=== PATIENT | male | born 1940 | race Caucasian/White ===

== ENCOUNTER 2022-05-10 19:16 | Emergency (ER) | payer MEDICARE, OTHER, SELFPAY ==
[2022-05-10] VITALS (15 sets, daily range): BP systolic 117–133; BP diastolic 56–69; PULSE 53–65; RESP 12–41; TEMP 36.6; O2SAT 60–99; BMI 26.4
--- NOTE | 2022-05-10 19:27 | DI.RAD.S_ITS ---
PROCEDURE: XR CHEST 1V INDICATIONS: SOB TECHNIQUE: One view of the chest was acquired. COMPARISON: None. FINDINGS: Surgical changes and devices: None. Lungs and pleura: Moderate right-sided effusion is seen laterally, which may be loculated. Diffuse reticulations are seen throughout both lungs. There is mild right perihilar prominence and thickening of the paratracheal soft tissues. No pneumothorax. Mediastinum: Mediastinal contours appear normal. Heart size is normal. Bones and chest wall: No suspicious bony lesions. Overlying soft tissues appear unremarkable. IMPRESSION: 1. Diffuse bilateral reticulations may be secondary to chronic interstitial lung disease is or other interstitial process. 2. Moderate right pleural effusion or pleural thickening, which is most prominent laterally. Consider chest CT for further evaluation. Dictated by: Cuate Medeiros M.D. on 05/10/2022 at 19:52 Approved by: Cuate Medeiros M.D. on 05/10/2022 at 19:55
--- NOTE | 2022-05-10 19:30 | ED_ITS ---
HPI - SOB/Dyspnea <Tae Frankel DO - Last Filed: 05/18/22 17:44> General Chief Complaint: Shortness of Breath/Dyspnea Stated Complaint: difficulty and discomfort breathing Time Seen by Provider: 05/10/22 19:22 History of Present Illness HPI Narrative: 82-year-old male former smoker with history of pulmonary fibrosis on home oxygen, typically 2 L presents with family in the chief complaint of increased fatigue and difficulty breathing over at least the course of the day. He arrives on 4 L in his working pretty hard to breathe with a pulse ox in the mid 80s. He is had no fever or chills. He denies any dizziness, weakness or lightheadedness. He denies any nausea or vomiting. He has some right lower chest pain without obvious provocation, palliation or radiation. He denies any cough with increased sputum production. He states he is persistently short of breath, whether at rest, with exertion or when lying flat. He denies any recent hospitalizations, change in medications or dietary change Related Data Home Medications Medication Instructions Recorded Confirmed apixaban 5 mg tablet (Eliquis) 5 mg PO BID 05/10/22 05/10/22 clopidogrel 75 mg tablet 75 mg PO DAILY 05/10/22 05/10/22 furosemide 20 mg tablet 20 mg PO DAILY 05/10/22 05/10/22 gabapentin 300 mg capsule 300 mg PO BEDTIME 05/10/22 05/10/22 pantoprazole 40 mg tablet,delayed 40 mg PO DAILY 05/10/22 05/10/22 release sotalol 80 mg tablet 80 mg PO DAILY 05/10/22 05/10/22 Allergies Allergy/AdvReac Type Severity Reaction Status Date / Time No Known Drug Allergies Allergy Verified 05/10/22 19:30 Review of Systems <Tae Frankel DO - Last Filed: 05/18/22 17:44> Review of Systems Narrative: GENERAL: See HPI HEENT: Denies sinus pain, ear pain, sore throat, difficulty swallowing, dizziness. RESPIRATORY: See HPI CARDIOVASCULAR: See HPI GASTROINTESTINAL: Denies nausea, vomiting, abdominal pain, diarrhea, constipation, melena. : Denies dysuria, frequency, incontinence, hematuria, urinary retention. MUSCULOSKELETAL: denies weakness, joint pain, or bony pain SKIN: Denies rash, skin lesions, or other NEUROLOGIC: Denies weakness, headache, numbness, change in speech, confusion, seizures, incoordination. PSYCHIATRIC: No concerning psychosocial issues. 12 point review of systems is negative except for those stated above Patient History <Tae Frankel DO - Last Filed: 05/18/22 17:44> Social History Smoking Status: Former smoker Exam <Tae Frankel DO - Last Filed: 05/18/22 17:44> Narrative Exam Narrative: GENERAL: [82] year old patient appears older than stated age. Well-developed patient, in moderate distress, increased work of breathing, SpO2 85% on 3L HEAD: Atraumatic. Normocephalic. EYES: Pupils equal round and reactive. Extraocular motions intact. No scleral icterus. No injection or drainage. ENT: Nose without bleeding, purulent drainage. Throat without erythema, tonsillar hypertrophy or exudate. Airway patent. NECK: Trachea midline. Non tender CARDIOVASCULAR: Regular rate and rhythm without murmurs, gallops, or rubs. RESPIRATORY: Decreased lung sounds throughout with crackles in right lung GASTROINTESTINAL: Abdomen soft, non-tender, nondistended. EXTREMITIES: No edema or joint tenderness. BACK: Nontender without deformity or crepitance. No flank tenderness. NEURO: AOx3. SKIN: No rash or erythema of visible areas Initial Vital Signs Initial Vital Signs: Vital Signs Pulse Rate 62 05/10/22 19:25 <Gail Novak MD - Last Filed: 05/19/22 03:44> Initial Vital Signs Initial Vital Signs: Vital Signs Pulse Rate 62 05/10/22 19:25 <Hilaria Akins MD - Last Filed: 05/14/22 04:09> Initial Vital Signs Initial Vital Signs: Vital Signs Pulse Rate 62 05/10/22 19:25 <Uma Eugene DO - Last Filed: 05/16/22 06:53> Initial Vital Signs Initial Vital Signs: Vital Signs Pulse Rate 62 05/10/22 19:25 <Hilaria Akins MD - Last Filed: 05/14/22 04:09> Central Line Placement Right IJ: Time of procedure: 01:30 Patient Placed on Monitor/Pulse Ox: Yes MD Prep: mask, gown and gloves Central Line Prep: Chlorhexidine scrub Local Anesthetic: lidocaine 1% Amount of anesthesia used (mL): 3 Ultrasound Used for Placement: Yes Central Line Lumen Inserted: triple Post Procedure: sutured in place, good blood return, all ports aspirated, flushed, capped and sterile dressing applied Post Procedure X-Ray: tip of catheter in good position and no pneumothorax seen Patient Tolerated Procedure: Well Complications: none Course <Tae Frankel, DO - Last Filed: 05/18/22 17:44> Orders Ordered: Discontinued Medications Amiodarone HCl (Amiodarone 200 Mg Tablet) 200 mg PO DAILY [facility] Amiodarone HCl (Amiodarone 200 Mg Tablet) 200 mg PO BID [facility] Last Admin: 05/13/22 21:00 Dose: 200 mg Documented By: Admin: 05/13/22 10:38 Dose: 200 mg Documented By: NICOLE Diltiazem HCl (Diltiazem 5 Mg/Ml Sdv) 10 mg IV NOW ONE Stop: 05/11/22 08:43 Last Admin: 05/11/22 08:49 Dose: 10 mg Documented By: MARCELLE Furosemide (Furosemide 40 Mg/4 Ml Vial) 40 mg IV NOW ONE Stop: 05/10/22 20:42 Last Admin: 05/10/22 20:54 Dose: 40 mg Documented By: VIMAL Gabapentin (Gabapentin 300 Mg Capsule) 300 mg PO TID [facility] Last Admin: 05/13/22 21:00 Dose: 300 mg Documented By: Admin: 05/13/22 15:07 Dose: 300 mg Documented By: Admin: 05/13/22 10:37 Dose: 300 mg Documented By: Admin: 05/12/22 21:11 Dose: 300 mg Documented By: Admin: 05/12/22 15:01 Dose: 300 mg Documented By: Admin: 05/12/22 08:47 Dose: 300 mg Documented By: Admin: 05/11/22 21:39 Dose: 300 mg Documented By: Admin: 05/11/22 14:30 Dose: 300 mg Documented By: Admin: 05/11/22 11:03 Dose: 300 mg Documented By: MARCELLE Heparin Sodium (Porcine) (Heparin 5,000 Unit/Ml Vial) 7,100 unit 80 unit/kg (7100 unit) IV NOW ONE Stop: 05/10/22 21:33 Last Admin: 05/10/22 21:58 Dose: 7,100 unit Documented By: VIMAL Heparin Sodium (Porcine) (Heparin 5,000 Unit/Ml Vial) 2,000 unit IV NOW ONE Stop: 05/11/22 12:48 Last Admin: 05/11/22 13:12 Dose: 2,000 unit Documented By: NAWAF Heparin Sodium/Dextrose (Heparin Drip) 25,000 unit in 500 mls @ 20 mls/hr IV CONT ANA MARIA; Protocol Last Titration: 05/14/22 01:46 Dose: 0 units/hr, 0 mls/hr Documented By: Titration: 05/13/22 22:14 Dose: 850 units/hr, 17 mls/hr Documented By: Admin: 05/13/22 14:34 Dose: 800 units/hr, 16 mls/hr Documented By: Titration: 05/13/22 13:11 Dose: 0 units/hr, 0 mls/hr Documented By: Admin: 05/12/22 04:55 Dose: 800 units/hr, 16 mls/hr Documented By: DKMatt Titration: 05/12/22 04:55 Dose: 800 units/hr, 16 mls/hr Documented By: Titration: 05/11/22 12:47 Dose: 800 units/hr, 16 mls/hr Documented By: Titration: 05/11/22 12:46 Dose: 900 units/hr, 18 mls/hr Documented By: Titration: 05/11/22 06:58 Dose: 700 units/hr, 14 mls/hr Documented By: Titration: 05/11/22 05:55 Dose: 0 units/hr, 0 mls/hr Documented By: Admin: 05/10/22 21:58 Dose: 1,000 units/hr, 20 mls/hr Documented By: VIMAL Piperacillin Sod/Tazobactam (Sod 4.5 gm/ Sodium Chloride) 100 mls @ 200 mls/hr IV NOW ONE Stop: 05/10/22 21:33 Last Infusion: 05/10/22 23:00 Dose: 0 mls/hr Documented By: Admin: 05/10/22 21:59 Dose: 200 mls/hr Documented By: VIMAL DILTIAZEM (Diltiazem 125 Mg/125 Ml-D5w) 125 mg in 125 mls @ 5 mls/hr IV TITRATE ANA MARIA; Protocol Last Titration: 05/11/22 21:22 Dose: 0 mg/hr, 0 mls/hr Documented By: Titration: 05/11/22 13:53 Dose: 0 mg/hr, 0 mls/hr Documented By: Titration: 05/11/22 13:47 Dose: 1 mg/hr, 1 mls/hr Documented By: Titration: 05/11/22 11:03 Dose: 2.5 mg/hr, 2.5 mls/hr Documented By: Titration: 05/11/22 09:33 Dose: 3 mg/hr, 3 mls/hr Documented By: Admin: 05/11/22 08:59 Dose: 5 mg/hr, 5 mls/hr Documented By: AMU Sodium Chloride (Normal Saline 0.9%) 500 mls @ 1,000 mls/hr IV BOLUS ONE Stop: 05/11/22 11:32 Last Infusion: 05/11/22 12:22 Dose: 0 mls/hr Documented By: Admin: 05/11/22 11:07 Dose: 1,000 mls/hr Documented By: AMU Sodium Chloride (Normal Saline 0.9%) 500 mls @ 1,000 mls/hr IV BOLUS ONE Stop: 05/11/22 18:10 Last Infusion: 05/11/22 21:31 Dose: 0 mls/hr Documented By: Admin: 05/11/22 20:27 Dose: 1,000 mls/hr Documented By: CTS Phenylephrine HCl 20,000 mcg/ (Dextrose) 250 mls @ 37.5 mls/hr IV TITRATE ANA MARIA; Protocol Last Titration: 05/14/22 01:46 Dose: 0 mcg/min, 0 mls/hr Documented By: Admin: 05/14/22 00:41 Dose: 60 mcg/min, 45 mls/hr Documented By: Titration: 05/14/22 00:39 Dose: 60 mcg/min, 45 mls/hr Documented By: Admin: 05/13/22 19:05 Dose: 60 mcg/min, 45 mls/hr Documented By: Titration: 05/13/22 19:05 Dose: 60 mcg/min, 45 mls/hr Documented By: Titration: 05/13/22 15:24 Dose: 60 mcg/min, 45 mls/hr Documented By: Admin: 05/13/22 13:45 Dose: 50 mcg/min, 37.5 mls/hr Documented By: Titration: 05/13/22 12:28 Dose: 50 mcg/min, 37.5 mls/hr Documented By: Titration: 05/13/22 09:49 Dose: 50 mcg/min, 37.5 mls/hr Documented By: Titration: 05/13/22 08:51 Dose: 40 mcg/min, 30 mls/hr Documented By: Admin: 05/13/22 05:36 Dose: 50 mcg/min, 37.5 mls/hr Documented By: Titration: 05/13/22 05:01 Dose: 50 mcg/min, 37.5 mls/hr Documented By: Admin: 05/12/22 22:20 Dose: 50 mcg/min, 37.5 mls/hr Documented By: Titration: 05/12/22 22:20 Dose: 50 mcg/min, 37.5 mls/hr Documented By: Admin: 05/12/22 17:54 Dose: 50 mcg/min, 37.5 mls/hr Documented By: Titration: 05/12/22 17:54 Dose: 0 mcg/min, 0 mls/hr Documented By: Titration: 05/12/22 17:10 Dose: 0 mcg/min, 0 mls/hr Documented By: Titration: 05/12/22 15:48 Dose: 40 mcg/min, 30 mls/hr Documented By: Admin: 05/12/22 13:34 Dose: 50 mcg/min, 37.5 mls/hr Documented By: Titration: 05/12/22 13:32 Dose: 0 mcg/min, 0 mls/hr Documented By: Titration: 05/12/22 10:31 Dose: 50 mcg/min, 37.5 mls/hr Documented By: Admin: 05/12/22 06:57 Dose: 60 mcg/min, 45 mls/hr Documented By: Titration: 05/12/22 06:57 Dose: 60 mcg/min, 45 mls/hr Documented By: Titration: 05/12/22 01:41 Dose: 60 mcg/min, 45 mls/hr Documented By: Admin: 05/12/22 00:41 Dose: 50 mcg/min, 37.5 mls/hr Documented By: EVER Amiodarone HCl/Dextrose (Nexterone) 150 mg in 100 mls @ 600 mls/hr IV NOW ONE; Protocol Stop: 05/11/22 21:11 Last Infusion: 05/12/22 00:55 Dose: 0 mls/hr Documented By: Admin: 05/12/22 00:43 Dose: 600 mls/hr Documented By: EVER Amiodarone HCl/Dextrose (Nexterone) 360 mg in 200 mls @ 33.333 mls/hr IV NOW ONE; Protocol Stop: 05/12/22 03:01 Last Titration: 05/12/22 06:45 Dose: 0 mg/hr, 0 mls/hr Documented By: Admin: 05/12/22 00:57 Dose: 33.3 mg/hr, 18.5 mls/hr Documented By: EVER Amiodarone HCl/Dextrose (Nexterone) 360 mg in 200 mls @ 16.7 mls/hr IV CONT ANA MARIA; Protocol Stop: 05/12/22 09:14 Last Titration: 05/12/22 19:38 Dose: 0 mls/hr, 0 mls/hr Documented By: Titration: 05/12/22 18:31 Dose: 16.7 mls/hr, 16.7 mls/hr Documented By: Admin: 05/12/22 06:45 Dose: 16.7 mls/hr, 16.7 mls/hr Documented By: EVER Piperacillin Sod/Tazobactam (Sod 3.375 gm/ Sodium Chloride) 100 mls @ 25 mls/hr IV Q8H ANA MARIA Last Admin: 05/14/22 01:47 Dose: Not Given Documented By: Infusion: 05/13/22 21:25 Dose: 0 mls/hr Documented By: Admin: 05/13/22 17:26 Dose: 25 mls/hr Documented By: Infusion: 05/13/22 14:35 Dose: 0 mls/hr Documented By: Admin: 05/13/22 10:37 Dose: 25 mls/hr Documented By: Infusion: 05/13/22 06:15 Dose: 25 mls/hr Documented By: Admin: 05/13/22 02:00 Dose: 25 mls/hr Documented By: Infusion: 05/12/22 21:03 Dose: 0 mls/hr Documented By: Admin: 05/12/22 17:01 Dose: 25 mls/hr Documented By: Infusion: 05/12/22 13:26 Dose: 0 mls/hr Documented By: Admin: 05/12/22 09:32 Dose: 25 mls/hr Documented By: CHARLEE Amiodarone HCl/Dextrose (Nexterone) 181 mg in 100.56 mls @ 16.7 mls/hr IV CONT ANA MARIA; Protocol Stop: 05/13/22 00:17 Last Titration: 05/13/22 00:53 Dose: 16.7 mls/hr, 16.7 mls/hr Documented By: Admin: 05/12/22 18:46 Dose: 16.7 mls/hr, 16.7 mls/hr Documented By: CHARLEE Sotalol HCl (Sotalol 80 Mg Tablet) 80 mg PO BID ANA MARIA Sotalol HCl (Sotalol 80 Mg Tablet) 80 mg PO BID ANA MARIA Last Admin: 05/11/22 22:03 Dose: Not Given Documented By: Admin: 05/11/22 08:06 Dose: Not Given Documented By: Admin: 05/11/22 06:46 Dose: 80 mg Documented By: LIZBETHW Consultations Consultation #1: [phone] - calls to and images pushed to [place] given his history, currently no beds, but on a wait list. I have spoken with Hospitalist who gladly accepts pending bed Vital Signs Vital signs: Vital Signs - 8 hr 05/13/22 20:16 05/13/22 20:16 05/13/22 20:30 Pulse Rate 53 L Respiratory Rate 36 H Blood Pressure 114/55 L 96/54 L Pulse Oximetry 96 05/13/22 20:30 05/13/22 20:45 05/13/22 20:45 Pulse Rate 51 L 55 L Respiratory Rate 25 H 28 H Blood Pressure 101/56 L Pulse Oximetry 96 97 05/13/22 21:00 05/13/22 21:16 05/13/22 21:16 Pulse Rate 54 L 62 Respiratory Rate 34 H 31 H Blood Pressure 90/64 Pulse Oximetry 96 98 05/13/22 21:30 05/13/22 21:30 05/13/22 21:45 Pulse Rate 52 L Respiratory Rate 28 H Blood Pressure 85/60 L 87/62 L Pulse Oximetry 97 05/13/22 21:45 05/13/22 22:00 05/13/22 22:01 Pulse Rate 57 L 81 132 H Respiratory Rate 30 H 38 H 41 H Blood Pressure Pulse Oximetry 96 94 94 05/13/22 22:01 05/13/22 22:30 05/13/22 22:31 Pulse Rate 63 57 L Respiratory Rate 34 H 37 H Blood Pressure 91/65 Pulse Oximetry 94 95 05/13/22 22:31 05/13/22 22:45 05/13/22 22:45 Pulse Rate 54 L Respiratory Rate 29 H Blood Pressure 96/54 L 105/60 Pulse Oximetry 95 05/13/22 23:00 05/13/22 23:00 05/13/22 23:15 Pulse Rate 66 56 L Respiratory Rate 34 H 27 H Blood Pressure 104/57 L Pulse Oximetry 96 96 05/13/22 23:15 05/13/22 23:30 05/13/22 23:30 Pulse Rate 54 L Respiratory Rate 29 H Blood Pressure 84/64 L 92/63 Pulse Oximetry 96 05/13/22 23:45 05/13/22 23:45 05/14/22 00:00 Pulse Rate 56 L Respiratory Rate 30 H Blood Pressure 103/61 92/62 Pulse Oximetry 93 05/14/22 00:00 05/14/22 00:30 05/14/22 00:31 Pulse Rate 56 L 54 L Respiratory Rate 33 H 32 H Blood Pressure 83/52 L Pulse Oximetry 94 93 05/14/22 00:31 05/14/22 00:45 05/14/22 00:45 Pulse Rate 54 L 58 L Respiratory Rate 31 H 32 H Blood Pressure 85/62 L Pulse Oximetry 93 95 05/14/22 01:00 05/14/22 01:00 Pulse Rate 79 Respiratory Rate 31 H Blood Pressure 100/58 L Pulse Oximetry 95 <Gail Novak MD - Last Filed: 05/19/22 03:44> Course Course Narrative: May 11, 2022 at 7:00 a.m.. Sign out from Dr. Frankel, he has spoken with [facility] in hospitalist for continuity of care but no beds available. Patient is on waiting list there and will be needed to be a waiting list at other facilities for transfer. Patient requiring prior levels oxygen to maintain in the low 90s. Patient is on heparin and Lasix and sotalol. Morning labs are pending. Scarlet [place] 7:[address] out to Dr. Hernandez, this time still on waiting list for [facility] as well as [facility] as well as [facility]. I have spoken with 3 different senior piping designer. Patient does have poor prognosis this time based on the echocardiogram reviewed with Dr. Babin. Discussion with family, patient and daughter at bedside regarding code status has been done and family still deciding. They do understand gravity of the situation as well as long wait for a bed. Blood pressure has been low however Dr. Babin as indicated there is room for IV fluids. Discharge summaries as well as recent May 03, 2008 to office visit with patient's senior piping designer copies of forms are in chart. Paper form Orders Ordered: Discontinued Medications Amiodarone HCl (Amiodarone 200 Mg Tablet) 200 mg PO DAILY [facility] Amiodarone HCl (Amiodarone 200 Mg Tablet) 200 mg PO BID [facility] Last Admin: 05/13/22 21:00 Dose: 200 mg Documented By: Admin: 05/13/22 10:38 Dose: 200 mg Documented By: NICOLE Diltiazem HCl (Diltiazem 5 Mg/Ml Sdv) 10 mg IV NOW ONE Stop: 05/11/22 08:43 Last Admin: 05/11/22 08:49 Dose: 10 mg Documented By: MARCELLE Furosemide (Furosemide 40 Mg/4 Ml Vial) 40 mg IV NOW ONE Stop: 05/10/22 20:42 Last Admin: 05/10/22 20:54 Dose: 40 mg Documented By: VIMAL Gabapentin (Gabapentin 300 Mg Capsule) 300 mg PO TID [facility] Last Admin: 05/13/22 21:00 Dose: 300 mg Documented By: Admin: 05/13/22 15:07 Dose: 300 mg Documented By: Admin: 05/13/22 10:37 Dose: 300 mg Documented By: Admin: 05/12/22 21:11 Dose: 300 mg Documented By: Admin: 05/12/22 15:01 Dose: 300 mg Documented By: Admin: 05/12/22 08:47 Dose: 300 mg Documented By: Admin: 05/11/22 21:39 Dose: 300 mg Documented By: Admin: 05/11/22 14:30 Dose: 300 mg Documented By: Admin: 05/11/22 11:03 Dose: 300 mg Documented By: AMU Heparin Sodium (Porcine) (Heparin 5,000 Unit/Ml Vial) 7,100 unit 80 unit/kg (7100 unit) IV NOW ONE Stop: 05/10/22 21:33 Last Admin: 05/10/22 21:58 Dose: 7,100 unit Documented By: PILARK Heparin Sodium (Porcine) (Heparin 5,000 Unit/Ml Vial) 2,000 unit IV NOW ONE Stop: 05/11/22 12:48 Last Admin: 05/11/22 13:12 Dose: 2,000 unit Documented By: NAWAF Heparin Sodium/Dextrose (Heparin Drip) 25,000 unit in 500 mls @ 20 mls/hr IV CONT ANA MARIA; Protocol Last Titration: 05/14/22 01:46 Dose: 0 units/hr, 0 mls/hr Documented By: Titration: 05/13/22 22:14 Dose: 850 units/hr, 17 mls/hr Documented By: Admin: 05/13/22 14:34 Dose: 800 units/hr, 16 mls/hr Documented By: Titration: 05/13/22 13:11 Dose: 0 units/hr, 0 mls/hr Documented By: Admin: 05/12/22 04:55 Dose: 800 units/hr, 16 mls/hr Documented By: Titration: 05/12/22 04:55 Dose: 800 units/hr, 16 mls/hr Documented By: Titration: 05/11/22 12:47 Dose: 800 units/hr, 16 mls/hr Documented By: Titration: 05/11/22 12:46 Dose: 900 units/hr, 18 mls/hr Documented By: Titration: 05/11/22 06:58 Dose: 700 units/hr, 14 mls/hr Documented By: Titration: 05/11/22 05:55 Dose: 0 units/hr, 0 mls/hr Documented By: Admin: 05/10/22 21:58 Dose: 1,000 units/hr, 20 mls/hr Documented By: VIMAL Piperacillin Sod/Tazobactam (Sod 4.5 gm/ Sodium Chloride) 100 mls @ 200 mls/hr IV NOW ONE Stop: 05/10/22 21:33 Last Infusion: 05/10/22 23:00 Dose: 0 mls/hr Documented By: Admin: 05/10/22 21:59 Dose: 200 mls/hr Documented By: VIMAL DILTIAZEM (Diltiazem 125 Mg/125 Ml-D5w) 125 mg in 125 mls @ 5 mls/hr IV TITRATE ANA MARIA; Protocol Last Titration: 05/11/22 21:22 Dose: 0 mg/hr, 0 mls/hr Documented By: Titration: 05/11/22 13:53 Dose: 0 mg/hr, 0 mls/hr Documented By: Titration: 05/11/22 13:47 Dose: 1 mg/hr, 1 mls/hr Documented By: Titration: 05/11/22 11:03 Dose: 2.5 mg/hr, 2.5 mls/hr Documented By: Titration: 05/11/22 09:33 Dose: 3 mg/hr, 3 mls/hr Documented By: Admin: 05/11/22 08:59 Dose: 5 mg/hr, 5 mls/hr Documented By: AMU Sodium Chloride (Normal Saline 0.9%) 500 mls @ 1,000 mls/hr IV BOLUS ONE Stop: 05/11/22 11:32 Last Infusion: 05/11/22 12:22 Dose: 0 mls/hr Documented By: Admin: 05/11/22 11:07 Dose: 1,000 mls/hr Documented By: AMU Sodium Chloride (Normal Saline 0.9%) 500 mls @ 1,000 mls/hr IV BOLUS ONE Stop: 05/11/22 18:10 Last Infusion: 05/11/22 21:31 Dose: 0 mls/hr Documented By: Admin: 05/11/22 20:27 Dose: 1,000 mls/hr Documented By: CTS Phenylephrine HCl 20,000 mcg/ (Dextrose) 250 mls @ 37.5 mls/hr IV TITRATE ANA MARIA; Protocol Last Titration: 05/14/22 01:46 Dose: 0 mcg/min, 0 mls/hr Documented By: Admin: 05/14/22 00:41 Dose: 60 mcg/min, 45 mls/hr Documented By: Titration: 05/14/22 00:39 Dose: 60 mcg/min, 45 mls/hr Documented By: Admin: 05/13/22 19:05 Dose: 60 mcg/min, 45 mls/hr Documented By: Titration: 05/13/22 19:05 Dose: 60 mcg/min, 45 mls/hr Documented By: Titration: 05/13/22 15:24 Dose: 60 mcg/min, 45 mls/hr Documented By: Admin: 05/13/22 13:45 Dose: 50 mcg/min, 37.5 mls/hr Documented By: Titration: 05/13/22 12:28 Dose: 50 mcg/min, 37.5 mls/hr Documented By: Titration: 05/13/22 09:49 Dose: 50 mcg/min, 37.5 mls/hr Documented By: Titration: 05/13/22 08:51 Dose: 40 mcg/min, 30 mls/hr Documented By: Admin: 05/13/22 05:36 Dose: 50 mcg/min, 37.5 mls/hr Documented By: Titration: 05/13/22 05:01 Dose: 50 mcg/min, 37.5 mls/hr Documented By: Admin: 05/12/22 22:20 Dose: 50 mcg/min, 37.5 mls/hr Documented By: Titration: 05/12/22 22:20 Dose: 50 mcg/min, 37.5 mls/hr Documented By: Admin: 05/12/22 17:54 Dose: 50 mcg/min, 37.5 mls/hr Documented By: Titration: 05/12/22 17:54 Dose: 0 mcg/min, 0 mls/hr Documented By: Titration: 05/12/22 17:10 Dose: 0 mcg/min, 0 mls/hr Documented By: Titration: 05/12/22 15:48 Dose: 40 mcg/min, 30 mls/hr Documented By: Admin: 05/12/22 13:34 Dose: 50 mcg/min, 37.5 mls/hr Documented By: Titration: 05/12/22 13:32 Dose: 0 mcg/min, 0 mls/hr Documented By: Titration: 05/12/22 10:31 Dose: 50 mcg/min, 37.5 mls/hr Documented By: Admin: 05/12/22 06:57 Dose: 60 mcg/min, 45 mls/hr Documented By: Titration: 05/12/22 06:57 Dose: 60 mcg/min, 45 mls/hr Documented By: Titration: 05/12/22 01:41 Dose: 60 mcg/min, 45 mls/hr Documented By: Admin: 05/12/22 00:41 Dose: 50 mcg/min, 37.5 mls/hr Documented By: EVER Amiodarone HCl/Dextrose (Nexterone) 150 mg in 100 mls @ 600 mls/hr IV NOW ONE; Protocol Stop: 05/11/22 21:11 Last Infusion: 05/12/22 00:55 Dose: 0 mls/hr Documented By: Admin: 05/12/22 00:43 Dose: 600 mls/hr Documented By: EVER Amiodarone HCl/Dextrose (Nexterone) 360 mg in 200 mls @ 33.333 mls/hr IV NOW ONE; Protocol Stop: 05/12/22 03:01 Last Titration: 05/12/22 06:45 Dose: 0 mg/hr, 0 mls/hr Documented By: Admin: 05/12/22 00:57 Dose: 33.3 mg/hr, 18.5 mls/hr Documented By: EVER Amiodarone HCl/Dextrose (Nexterone) 360 mg in 200 mls @ 16.7 mls/hr IV CONT ANA MARIA; Protocol Stop: 05/12/22 09:14 Last Titration: 05/12/22 19:38 Dose: 0 mls/hr, 0 mls/hr Documented By: Titration: 05/12/22 18:31 Dose: 16.7 mls/hr, 16.7 mls/hr Documented By: Admin: 05/12/22 06:45 Dose: 16.7 mls/hr, 16.7 mls/hr Documented By: EVER Piperacillin Sod/Tazobactam (Sod 3.375 gm/ Sodium Chloride) 100 mls @ 25 mls/hr IV Q8H ANA MARIA Last Admin: 05/14/22 01:47 Dose: Not Given Documented By: Infusion: 05/13/22 21:25 Dose: 0 mls/hr Documented By: Admin: 05/13/22 17:26 Dose: 25 mls/hr Documented By: Infusion: 05/13/22 14:35 Dose: 0 mls/hr Documented By: Admin: 05/13/22 10:37 Dose: 25 mls/hr Documented By: Infusion: 05/13/22 06:15 Dose: 25 mls/hr Documented By: Admin: 05/13/22 02:00 Dose: 25 mls/hr Documented By: Infusion: 05/12/22 21:03 Dose: 0 mls/hr Documented By: Admin: 05/12/22 17:01 Dose: 25 mls/hr Documented By: Infusion: 05/12/22 13:26 Dose: 0 mls/hr Documented By: Admin: 05/12/22 09:32 Dose: 25 mls/hr Documented By: CHARLEE Amiodarone HCl/Dextrose (Nexterone) 181 mg in 100.56 mls @ 16.7 mls/hr IV CONT ANA MARIA; Protocol Stop: 05/13/22 00:17 Last Titration: 05/13/22 00:53 Dose: 16.7 mls/hr, 16.7 mls/hr Documented By: Admin: 05/12/22 18:46 Dose: 16.7 mls/hr, 16.7 mls/hr Documented By: CHARLEE Sotalol HCl (Sotalol 80 Mg Tablet) 80 mg PO BID ANA MARIA Sotalol HCl (Sotalol 80 Mg Tablet) 80 mg PO BID ANA MARIA Last Admin: 05/11/22 22:03 Dose: Not Given Documented By: Admin: 05/11/22 08:06 Dose: Not Given Documented By: AMKendy Admin: 05/11/22 06:46 Dose: 80 mg Documented By: ISAIAS Reevaluation(s) Reevaluation #1: Introduced myself to patient/family. At this time no new issues. Awaiting for morning labs as well as for placement Time: 07:49 Reevaluation #2: I have spoken with patient results so far an echocardiogram and impression by Dr. Babin regarding echocardiogram with poor prognosis at this time. He understands this. is not here right now I have spoken with her by phone and she will be coming back to the hospital after dinner. We are still waiting for a bed and blood pressure is waxing and waning. Currently 91/60. Patient is alert and responsive, awake alert oriented x4. Time: 17:51 Consultations Consultation #2: Spoke with patient's cardiology at [facility]. Dr. Carpenter, do not cardiovert patient. Patient has pulmonary embolisms. Patient was given sotalol this morning, he states patient can still have Cardizem bolus and then start Cardizem drip Time: 08:44 Consultation #3: Spoke with Dr. Barnes, cardiology, patient would be appropriate to be transferred to [facility]. Recommends get echocardiogram now. Call hospitalist for admit. Give gentle hydration for low blood pressure but no vasopressors at this time. Additional Consultation(s): 5:[address] Babin senior piping designer regarding results of echocardiogram. Patient has very poor prognosis based on echocardiogram however does have good ejection fraction and does recommend giving IV fluids if low blood pressure. Vital Signs Vital signs: Vital Signs - 8 hr 05/13/22 20:16 05/13/22 20:16 05/13/22 20:30 Pulse Rate 53 L Respiratory Rate 36 H Blood Pressure 114/55 L 96/54 L Pulse Oximetry 96 05/13/22 20:30 05/13/22 20:45 05/13/22 20:45 Pulse Rate 51 L 55 L Respiratory Rate 25 H 28 H Blood Pressure 101/56 L Pulse Oximetry 96 97 05/13/22 21:00 05/13/22 21:16 05/13/22 21:16 Pulse Rate 54 L 62 Respiratory Rate 34 H 31 H Blood Pressure 90/64 Pulse Oximetry 96 98 05/13/22 21:30 05/13/22 21:30 05/13/22 21:45 Pulse Rate 52 L Respiratory Rate 28 H Blood Pressure 85/60 L 87/62 L Pulse Oximetry 97 05/13/22 21:45 05/13/22 22:00 05/13/22 22:01 Pulse Rate 57 L 81 132 H Respiratory Rate 30 H 38 H 41 H Blood Pressure Pulse Oximetry 96 94 94 05/13/22 22:01 05/13/22 22:30 05/13/22 22:31 Pulse Rate 63 57 L Respiratory Rate 34 H 37 H Blood Pressure 91/65 Pulse Oximetry 94 95 05/13/22 22:31 05/13/22 22:45 05/13/22 22:45 Pulse Rate 54 L Respiratory Rate 29 H Blood Pressure 96/54 L 105/60 Pulse Oximetry 95 05/13/22 23:00 05/13/22 23:00 05/13/22 23:15 Pulse Rate 66 56 L Respiratory Rate 34 H 27 H Blood Pressure 104/57 L Pulse Oximetry 96 96 05/13/22 23:15 05/13/22 23:30 05/13/22 23:30 Pulse Rate 54 L Respiratory Rate 29 H Blood Pressure 84/64 L 92/63 Pulse Oximetry 96 05/13/22 23:45 05/13/22 23:45 05/14/22 00:00 Pulse Rate 56 L Respiratory Rate 30 H Blood Pressure 103/61 92/62 Pulse Oximetry 93 05/14/22 00:00 05/14/22 00:30 05/14/22 00:31 Pulse Rate 56 L 54 L Respiratory Rate 33 H 32 H Blood Pressure 83/52 L Pulse Oximetry 94 93 05/14/22 00:31 05/14/22 00:45 05/14/22 00:45 Pulse Rate 54 L 58 L Respiratory Rate 31 H 32 H Blood Pressure 85/62 L Pulse Oximetry 93 95 05/14/22 01:00 05/14/22 01:00 Pulse Rate 79 Respiratory Rate 31 H Blood Pressure 100/58 L Pulse Oximetry 95 <Hilaria Akins MD - Last Filed: 05/14/22 04:09> Orders Ordered: Discontinued Medications Amiodarone HCl (Amiodarone 200 Mg Tablet) 200 mg PO DAILY [facility] Amiodarone HCl (Amiodarone 200 Mg Tablet) 200 mg PO BID [facility] Last Admin: 05/13/22 21:00 Dose: 200 mg Documented By: Admin: 05/13/22 10:38 Dose: 200 mg Documented By: NICOLE Diltiazem HCl (Diltiazem 5 Mg/Ml Sdv) 10 mg IV NOW ONE Stop: 05/11/22 08:43 Last Admin: 05/11/22 08:49 Dose: 10 mg Documented By: MARCELLE Furosemide (Furosemide 40 Mg/4 Ml Vial) 40 mg IV NOW ONE Stop: 05/10/22 20:42 Last Admin: 05/10/22 20:54 Dose: 40 mg Documented By: VIMAL Gabapentin (Gabapentin 300 Mg Capsule) 300 mg PO TID [facility] Last Admin: 05/13/22 21:00 Dose: 300 mg Documented By: Admin: 05/13/22 15:07 Dose: 300 mg Documented By: Admin: 05/13/22 10:37 Dose: 300 mg Documented By: Admin: 05/12/22 21:11 Dose: 300 mg Documented By: Admin: 05/12/22 15:01 Dose: 300 mg Documented By: Admin: 05/12/22 08:47 Dose: 300 mg Documented By: Admin: 05/11/22 21:39 Dose: 300 mg Documented By: Admin: 05/11/22 14:30 Dose: 300 mg Documented By: Admin: 05/11/22 11:03 Dose: 300 mg Documented By: MARCELLE Heparin Sodium (Porcine) (Heparin 5,000 Unit/Ml Vial) 7,100 unit 80 unit/kg (7100 unit) IV NOW ONE Stop: 05/10/22 21:33 Last Admin: 05/10/22 21:58 Dose: 7,100 unit Documented By: VIMAL Heparin Sodium (Porcine) (Heparin 5,000 Unit/Ml Vial) 2,000 unit IV NOW ONE Stop: 05/11/22 12:48 Last Admin: 05/11/22 13:12 Dose: 2,000 unit Documented By: CTS Heparin Sodium/Dextrose (Heparin Drip) 25,000 unit in 500 mls @ 20 mls/hr IV CONT ANA [facility]IA; Protocol Last Titration: 05/14/22 01:46 Dose: 0 units/hr, 0 mls/hr Documented By: Titration: 05/13/22 22:14 Dose: 850 units/hr, 17 mls/hr Documented By: Admin: 05/13/22 14:34 Dose: 800 units/hr, 16 mls/hr Documented By: Titration: 05/13/22 13:11 Dose: 0 units/hr, 0 mls/hr Documented By: Admin: 05/12/22 04:55 Dose: 800 units/hr, 16 mls/hr Documented By: Titration: 05/12/22 04:55 Dose: 800 units/hr, 16 mls/hr Documented By: Titration: 05/11/22 12:47 Dose: 800 units/hr, 16 mls/hr Documented By: Titration: 05/11/22 12:46 Dose: 900 units/hr, 18 mls/hr Documented By: Titration: 05/11/22 06:58 Dose: 700 units/hr, 14 mls/hr Documented By: Titration: 05/11/22 05:55 Dose: 0 units/hr, 0 mls/hr Documented By: Admin: 05/10/22 21:58 Dose: 1,000 units/hr, 20 mls/hr Documented By: VIMAL Piperacillin Sod/Tazobactam (Sod 4.5 gm/ Sodium Chloride) 100 mls @ 200 mls/hr IV NOW ONE Stop: 05/10/22 21:33 Last Infusion: 05/10/22 23:00 Dose: 0 mls/hr Documented By: Admin: 05/10/22 21:59 Dose: 200 mls/hr Documented By: VIMAL DILTIAZEM (Diltiazem 125 Mg/125 Ml-D5w) 125 mg in 125 mls @ 5 mls/hr IV TITRATE [facility]; Protocol Last Titration: 05/11/22 21:22 Dose: 0 mg/hr, 0 mls/hr Documented By: Titration: 05/11/22 13:53 Dose: 0 mg/hr, 0 mls/hr Documented By: Titration: 05/11/22 13:47 Dose: 1 mg/hr, 1 mls/hr Documented By: Titration: 05/11/22 11:03 Dose: 2.5 mg/hr, 2.5 mls/hr Documented By: Titration: 05/11/22 09:33 Dose: 3 mg/hr, 3 mls/hr Documented By: Admin: 05/11/22 08:59 Dose: 5 mg/hr, 5 mls/hr Documented By: AMU Sodium Chloride (Normal Saline 0.9%) 500 mls @ 1,000 mls/hr IV BOLUS ONE Stop: 05/11/22 11:32 Last Infusion: 05/11/22 12:22 Dose: 0 mls/hr Documented By: Admin: 05/11/22 11:07 Dose: 1,000 mls/hr Documented By: MARCELLE Sodium Chloride (Normal Saline 0.9%) 500 mls @ 1,000 mls/hr IV BOLUS ONE Stop: 05/11/22 18:10 Last Infusion: 05/11/22 21:31 Dose: 0 mls/hr Documented By: Admin: 05/11/22 20:27 Dose: 1,000 mls/hr Documented By: CTS Phenylephrine HCl 20,000 mcg/ (Dextrose) 250 mls @ 37.5 mls/hr IV TITRATE ANA [facility]; Protocol Last Titration: 05/14/22 01:46 Dose: 0 mcg/min, 0 mls/hr Documented By: Admin: 05/14/22 00:41 Dose: 60 mcg/min, 45 mls/hr Documented By: Titration: 05/14/22 00:39 Dose: 60 mcg/min, 45 mls/hr Documented By: Admin: 05/13/22 19:05 Dose: 60 mcg/min, 45 mls/hr Documented By: Titration: 05/13/22 19:05 Dose: 60 mcg/min, 45 mls/hr Documented By: Titration: 05/13/22 15:24 Dose: 60 mcg/min, 45 mls/hr Documented By: Admin: 05/13/22 13:45 Dose: 50 mcg/min, 37.5 mls/hr Documented By: Titration: 05/13/22 12:28 Dose: 50 mcg/min, 37.5 mls/hr Documented By: Titration: 05/13/22 09:49 Dose: 50 mcg/min, 37.5 mls/hr Documented By: Titration: 05/13/22 08:51 Dose: 40 mcg/min, 30 mls/hr Documented By: Admin: 05/13/22 05:36 Dose: 50 mcg/min, 37.5 mls/hr Documented By: Titration: 05/13/22 05:01 Dose: 50 mcg/min, 37.5 mls/hr Documented By: Admin: 05/12/22 22:20 Dose: 50 mcg/min, 37.5 mls/hr Documented By: Titration: 05/12/22 22:20 Dose: 50 mcg/min, 37.5 mls/hr Documented By: Admin: 05/12/22 17:54 Dose: 50 mcg/min, 37.5 mls/hr Documented By: Titration: 05/12/22 17:54 Dose: 0 mcg/min, 0 mls/hr Documented By: Titration: 05/12/22 17:10 Dose: 0 mcg/min, 0 mls/hr Documented By: Titration: 05/12/22 15:48 Dose: 40 mcg/min, 30 mls/hr Documented By: Admin: 05/12/22 13:34 Dose: 50 mcg/min, 37.5 mls/hr Documented By: Titration: 05/12/22 13:32 Dose: 0 mcg/min, 0 mls/hr Documented By: Titration: 05/12/22 10:31 Dose: 50 mcg/min, 37.5 mls/hr Documented By: Admin: 05/12/22 06:57 Dose: 60 mcg/min, 45 mls/hr Documented By: Titration: 05/12/22 06:57 Dose: 60 mcg/min, 45 mls/hr Documented By: Titration: 05/12/22 01:41 Dose: 60 mcg/min, 45 mls/hr Documented By: Admin: 05/12/22 00:41 Dose: 50 mcg/min, 37.5 mls/hr Documented By: EVER Amiodarone HCl/Dextrose (Nexterone) 150 mg in 100 mls @ 600 mls/hr IV NOW ONE; Protocol Stop: 05/11/22 21:11 Last Infusion: 05/12/22 00:55 Dose: 0 mls/hr Documented By: Admin: 05/12/22 00:43 Dose: 600 mls/hr Documented By: EVER Amiodarone HCl/Dextrose (Nexterone) 360 mg in 200 mls @ 33.333 mls/hr IV NOW ONE; Protocol Stop: 05/12/22 03:01 Last Titration: 05/12/22 06:45 Dose: 0 mg/hr, 0 mls/hr Documented By: Admin: 05/12/22 00:57 Dose: 33.3 mg/hr, 18.5 mls/hr Documented By: EVER Amiodarone HCl/Dextrose (Nexterone) 360 mg in 200 mls @ 16.7 mls/hr IV CONT ANA MARIA; Protocol Stop: 05/12/22 09:14 Last Titration: 05/12/22 19:38 Dose: 0 mls/hr, 0 mls/hr Documented By: Titration: 05/12/22 18:31 Dose: 16.7 mls/hr, 16.7 mls/hr Documented By: Admin: 05/12/22 06:45 Dose: 16.7 mls/hr, 16.7 mls/hr Documented By: EVER Piperacillin Sod/Tazobactam (Sod 3.375 gm/ Sodium Chloride) 100 mls @ 25 mls/hr IV Q8H ANA [facility] Last Admin: 05/14/22 01:47 Dose: Not Given Documented By: Infusion: 05/13/22 21:25 Dose: 0 mls/hr Documented By: Admin: 05/13/22 17:26 Dose: 25 mls/hr Documented By: Infusion: 05/13/22 14:35 Dose: 0 mls/hr Documented By: Admin: 05/13/22 10:37 Dose: 25 mls/hr Documented By: Infusion: 05/13/22 06:15 Dose: 25 mls/hr Documented By: Admin: 05/13/22 02:00 Dose: 25 mls/hr Documented By: Infusion: 05/12/22 21:03 Dose: 0 mls/hr Documented By: Admin: 05/12/22 17:01 Dose: 25 mls/hr Documented By: Infusion: 05/12/22 13:26 Dose: 0 mls/hr Documented By: Admin: 05/12/22 09:32 Dose: 25 mls/hr Documented By: CHARLEE Amiodarone HCl/Dextrose (Nexterone) 181 mg in 100.56 mls @ 16.7 mls/hr IV CONT ANA MARIA; Protocol Stop: 05/13/22 00:17 Last Titration: 05/13/22 00:53 Dose: 16.7 mls/hr, 16.7 mls/hr Documented By: Admin: 05/12/22 18:46 Dose: 16.7 mls/hr, 16.7 mls/hr Documented By: CHARLEE Sotalol HCl (Sotalol 80 Mg Tablet) 80 mg PO BID A[facility] Sotalol HCl (Sotalol 80 Mg Tablet) 80 mg PO BID A[facility] Last Admin: 05/11/22 22:03 Dose: Not Given Documented By: Admin: 05/11/22 08:06 Dose: Not Given Documented By: Admin: 05/11/22 06:46 Dose: 80 mg Documented By: LIZBETHW Vital Signs Vital signs: Vital Signs - 8 hr 05/13/22 20:16 05/13/22 20:16 05/13/22 20:30 Pulse Rate 53 L Respiratory Rate 36 H Blood Pressure 114/55 L 96/54 L Pulse Oximetry 96 05/13/22 20:30 05/13/22 20:45 05/13/22 20:45 Pulse Rate 51 L 55 L Respiratory Rate 25 H 28 H Blood Pressure 101/56 L Pulse Oximetry 96 97 05/13/22 21:00 05/13/22 21:16 05/13/22 21:16 Pulse Rate 54 L 62 Respiratory Rate 34 H 31 H Blood Pressure 90/64 Pulse Oximetry 96 98 05/13/22 21:30 05/13/22 21:30 05/13/22 21:45 Pulse Rate 52 L Respiratory Rate 28 H Blood Pressure 85/60 L 87/62 L Pulse Oximetry 97 05/13/22 21:45 05/13/22 22:00 05/13/22 22:01 Pulse Rate 57 L 81 132 H Respiratory Rate 30 H 38 H 41 H Blood Pressure Pulse Oximetry 96 94 94 05/13/22 22:01 05/13/22 22:30 05/13/22 22:31 Pulse Rate 63 57 L Respiratory Rate 34 H 37 H Blood Pressure 91/65 Pulse Oximetry 94 95 05/13/22 22:31 05/13/22 22:45 05/13/22 22:45 Pulse Rate 54 L Respiratory Rate 29 H Blood Pressure 96/54 L 105/60 Pulse Oximetry 95 05/13/22 23:00 05/13/22 23:00 05/13/22 23:15 Pulse Rate 66 56 L Respiratory Rate 34 H 27 H Blood Pressure 104/57 L Pulse Oximetry 96 96 05/13/22 23:15 05/13/22 23:30 05/13/22 23:30 Pulse Rate 54 L Respiratory Rate 29 H Blood Pressure 84/64 L 92/63 Pulse Oximetry 96 05/13/22 23:45 05/13/22 23:45 05/14/22 00:00 Pulse Rate 56 L Respiratory Rate 30 H Blood Pressure 103/61 92/62 Pulse Oximetry 93 05/14/22 00:00 05/14/22 00:30 05/14/22 00:31 Pulse Rate 56 L 54 L Respiratory Rate 33 H 32 H Blood Pressure 83/52 L Pulse Oximetry 94 93 05/14/22 00:31 05/14/22 00:45 05/14/22 00:45 Pulse Rate 54 L 58 L Respiratory Rate 31 H 32 H Blood Pressure 85/62 L Pulse Oximetry 93 95 05/14/22 01:00 05/14/22 01:00 Pulse Rate 79 Respiratory Rate 31 H Blood Pressure 100/58 L Pulse Oximetry 95 <Uma Eugene, - Last Filed: 05/16/22 06:53> Course Course Narrative: May 11, 2022 at 7:00 a.m.. Sign out from Dr. Frankel, he has spoken with [facility] in hospitalist for continuity of care but no beds available. Patient is on waiting list there and will be needed to be a waiting list at other facilities for transfer. Patient requiring prior levels oxygen to maintain in the low 90s. Patient is on heparin and Lasix and sotalol. Morning labs are pending. Scarlet MANSFIELD 7:[address] out to Dr. Akins , this time still on waiting list [facility] I have spoken with 3 different senior piping designer. Patient does have poor prognosis this time based on the echocardiogram reviewed with Dr. Babin. Discussion with family, patient and daughter at bedside regarding code status has been done and family still deciding. They do understand gravity of the situation as well as long wait for a bed. Blood pressure has been low however Dr. Babin as indicated there is room for IV fluids. Discharge summaries as well as recent May 03, 2008 to office visit with patient's senior piping designer copies of forms are in chart. Paper form Orders Ordered: Discontinued Medications Amiodarone HCl (Amiodarone 200 Mg Tablet) 200 mg PO DAILY [facility] Amiodarone HCl (Amiodarone 200 Mg Tablet) 200 mg PO BID [facility] Last Admin: 05/13/22 21:00 Dose: 200 mg Documented By: Admin: 05/13/22 10:38 Dose: 200 mg Documented By: NICOLE Diltiazem HCl (Diltiazem 5 Mg/Ml Sdv) 10 mg IV NOW ONE Stop: 05/11/22 08:43 Last Admin: 05/11/22 08:49 Dose: 10 mg Documented By: MARCELLE Furosemide (Furosemide 40 Mg/4 Ml Vial) 40 mg IV NOW ONE Stop: 05/10/22 20:42 Last Admin: 05/10/22 20:54 Dose: 40 mg Documented By: VIMAL Gabapentin (Gabapentin 300 Mg Capsule) 300 mg PO TID [facility] Last Admin: 05/13/22 21:00 Dose: 300 mg Documented By: Admin: 05/13/22 15:07 Dose: 300 mg Documented By: Admin: 05/13/22 10:37 Dose: 300 mg Documented By: Admin: 05/12/22 21:11 Dose: 300 mg Documented By: Admin: 05/12/22 15:01 Dose: 300 mg Documented By: Admin: 05/12/22 08:47 Dose: 300 mg Documented By: Admin: 05/11/22 21:39 Dose: 300 mg Documented By: Admin: 05/11/22 14:30 Dose: 300 mg Documented By: Admin: 05/11/22 11:03 Dose: 300 mg Documented By: MARCELLE Heparin Sodium (Porcine) (Heparin 5,000 Unit/Ml Vial) 7,100 unit 80 unit/kg (7100 unit) IV NOW ONE Stop: 05/10/22 21:33 Last Admin: 05/10/22 21:58 Dose: 7,100 unit Documented By: VIMAL Heparin Sodium (Porcine) (Heparin 5,000 Unit/Ml Vial) 2,000 unit IV NOW ONE Stop: 05/11/22 12:48 Last Admin: 05/11/22 13:12 Dose: 2,000 unit Documented By: NAWAF Heparin Sodium/Dextrose (Heparin Drip) 25,000 unit in 500 mls @ 20 mls/hr IV CONT [facility]; Protocol Last Titration: 05/14/22 01:46 Dose: 0 units/hr, 0 mls/hr Documented By: Titration: 05/13/22 22:14 Dose: 850 units/hr, 17 mls/hr Documented By: Admin: 05/13/22 14:34 Dose: 800 units/hr, 16 mls/hr Documented By: Titration: 05/13/22 13:11 Dose: 0 units/hr, 0 mls/hr Documented By: Admin: 05/12/22 04:55 Dose: 800 units/hr, 16 mls/hr Documented By: Titration: 05/12/22 04:55 Dose: 800 units/hr, 16 mls/hr Documented By: Titration: 05/11/22 12:47 Dose: 800 units/hr, 16 mls/hr Documented By: Titration: 05/11/22 12:46 Dose: 900 units/hr, 18 mls/hr Documented By: Titration: 05/11/22 06:58 Dose: 700 units/hr, 14 mls/hr Documented By: Titration: 05/11/22 05:55 Dose: 0 units/hr, 0 mls/hr Documented By: Admin: 05/10/22 21:58 Dose: 1,000 units/hr, 20 mls/hr Documented By: VIMAL Piperacillin Sod/Tazobactam (Sod 4.5 gm/ Sodium Chloride) 100 mls @ 200 mls/hr IV NOW ONE Stop: 05/10/22 21:33 Last Infusion: 05/10/22 23:00 Dose: 0 mls/hr Documented By: Admin: 05/10/22 21:59 Dose: 200 mls/hr Documented By: VIMAL DILTIAZEM (Diltiazem 125 Mg/125 Ml-D5w) 125 mg in 125 mls @ 5 mls/hr IV TITRATE ANA [facility]; Protocol Last Titration: 05/11/22 21:22 Dose: 0 mg/hr, 0 mls/hr Documented By: Titration: 05/11/22 13:53 Dose: 0 mg/hr, 0 mls/hr Documented By: Titration: 05/11/22 13:47 Dose: 1 mg/hr, 1 mls/hr Documented By: Titration: 05/11/22 11:03 Dose: 2.5 mg/hr, 2.5 mls/hr Documented By: Titration: 05/11/22 09:33 Dose: 3 mg/hr, 3 mls/hr Documented By: Admin: 05/11/22 08:59 Dose: 5 mg/hr, 5 mls/hr Documented By: AMU Sodium Chloride (Normal Saline 0.9%) 500 mls @ 1,000 mls/hr IV BOLUS ONE Stop: 05/11/22 11:32 Last Infusion: 05/11/22 12:22 Dose: 0 mls/hr Documented By: Admin: 05/11/22 11:07 Dose: 1,000 mls/hr Documented By: AMU Sodium Chloride (Normal Saline 0.9%) 500 mls @ 1,000 mls/hr IV BOLUS ONE Stop: 05/11/22 18:10 Last Infusion: 05/11/22 21:31 Dose: 0 mls/hr Documented By: Admin: 05/11/22 20:27 Dose: 1,000 mls/hr Documented By: CTS Phenylephrine HCl 20,000 mcg/ (Dextrose) 250 mls @ 37.5 mls/hr IV TITRATE [facility]NA [facility]; Protocol Last Titration: 05/14/22 01:46 Dose: 0 mcg/min, 0 mls/hr Documented By: Admin: 05/14/22 00:41 Dose: 60 mcg/min, 45 mls/hr Documented By: Titration: 05/14/22 00:39 Dose: 60 mcg/min, 45 mls/hr Documented By: Admin: 05/13/22 19:05 Dose: 60 mcg/min, 45 mls/hr Documented By: Titration: 05/13/22 19:05 Dose: 60 mcg/min, 45 mls/hr Documented By: Titration: 05/13/22 15:24 Dose: 60 mcg/min, 45 mls/hr Documented By: Admin: 05/13/22 13:45 Dose: 50 mcg/min, 37.5 mls/hr Documented By: Titration: 05/13/22 12:28 Dose: 50 mcg/min, 37.5 mls/hr Documented By: Titration: 05/13/22 09:49 Dose: 50 mcg/min, 37.5 mls/hr Documented By: Titration: 05/13/22 08:51 Dose: 40 mcg/min, 30 mls/hr Documented By: Admin: 05/13/22 05:36 Dose: 50 mcg/min, 37.5 mls/hr Documented By: Titration: 05/13/22 05:01 Dose: 50 mcg/min, 37.5 mls/hr Documented By: Admin: 05/12/22 22:20 Dose: 50 mcg/min, 37.5 mls/hr Documented By: Titration: 05/12/22 22:20 Dose: 50 mcg/min, 37.5 mls/hr Documented By: Admin: 05/12/22 17:54 Dose: 50 mcg/min, 37.5 mls/hr Documented By: Titration: 05/12/22 17:54 Dose: 0 mcg/min, 0 mls/hr Documented By: Titration: 05/12/22 17:10 Dose: 0 mcg/min, 0 mls/hr Documented By: Titration: 05/12/22 15:48 Dose: 40 mcg/min, 30 mls/hr Documented By: Admin: 05/12/22 13:34 Dose: 50 mcg/min, 37.5 mls/hr Documented By: Titration: 05/12/22 13:32 Dose: 0 mcg/min, 0 mls/hr Documented By: Titration: 05/12/22 10:31 Dose: 50 mcg/min, 37.5 mls/hr Documented By: Admin: 05/12/22 06:57 Dose: 60 mcg/min, 45 mls/hr Documented By: Titration: 05/12/22 06:57 Dose: 60 mcg/min, 45 mls/hr Documented By: Titration: 05/12/22 01:41 Dose: 60 mcg/min, 45 mls/hr Documented By: Admin: 05/12/22 00:41 Dose: 50 mcg/min, 37.5 mls/hr Documented By: EVRE Amiodarone HCl/Dextrose (Nexterone) 150 mg in 100 mls @ 600 mls/hr IV NOW ONE; Protocol Stop: 05/11/22 21:11 Last Infusion: 05/12/22 00:55 Dose: 0 mls/hr Documented By: Admin: 05/12/22 00:43 Dose: 600 mls/hr Documented By: EVER Amiodarone HCl/Dextrose (Nexterone) 360 mg in 200 mls @ 33.333 mls/hr IV NOW ONE; Protocol Stop: 05/12/22 03:01 Last Titration: 05/12/22 06:45 Dose: 0 mg/hr, 0 mls/hr Documented By: Admin: 05/12/22 00:57 Dose: 33.3 mg/hr, 18.5 mls/hr Documented By: EVER Amiodarone HCl/Dextrose (Nexterone) 360 mg in 200 mls @ 16.7 mls/hr IV CONT ANA MARIA; Protocol Stop: 05/12/22 09:14 Last Titration: 05/12/22 19:38 Dose: 0 mls/hr, 0 mls/hr Documented By: Titration: 05/12/22 18:31 Dose: 16.7 mls/hr, 16.7 mls/hr Documented By: Admin: 05/12/22 06:45 Dose: 16.7 mls/hr, 16.7 mls/hr Documented By: EVER Piperacillin Sod/Tazobactam (Sod 3.375 gm/ Sodium Chloride) 100 mls @ 25 mls/hr IV Q8H ANA [facility] Last Admin: 05/14/22 01:47 Dose: Not Given Documented By: Infusion: 05/13/22 21:25 Dose: 0 mls/hr Documented By: Admin: 05/13/22 17:26 Dose: 25 mls/hr Documented By: Infusion: 05/13/22 14:35 Dose: 0 mls/hr Documented By: Admin: 05/13/22 10:37 Dose: 25 mls/hr Documented By: Infusion: 05/13/22 06:15 Dose: 25 mls/hr Documented By: Admin: 05/13/22 02:00 Dose: 25 mls/hr Documented By: Infusion: 05/12/22 21:03 Dose: 0 mls/hr Documented By: Admin: 05/12/22 17:01 Dose: 25 mls/hr Documented By: Infusion: 05/12/22 13:26 Dose: 0 mls/hr Documented By: Admin: 05/12/22 09:32 Dose: 25 mls/hr Documented By: CHARLEE Amiodarone HCl/Dextrose (Nexterone) 181 mg in 100.56 mls @ 16.7 mls/hr IV CONT ANA MARIA; Protocol Stop: 05/13/22 00:17 Last Titration: 05/13/22 00:53 Dose: 16.7 mls/hr, 16.7 mls/hr Documented By: Admin: 05/12/22 18:46 Dose: 16.7 mls/hr, 16.7 mls/hr Documented By: CHARLEE Sotalol HCl (Sotalol 80 Mg Tablet) 80 mg PO BID [facility] Sotalol HCl (Sotalol 80 Mg Tablet) 80 mg PO BID [facility] Last Admin: 05/11/22 22:03 Dose: Not Given Documented By: Admin: 05/11/22 08:06 Dose: Not Given Documented By: Admin: 05/11/22 06:46 Dose: 80 mg Documented By: ISAIAS Vital Signs Vital signs: Vital Signs - 8 hr 05/13/22 20:16 05/13/22 20:16 05/13/22 20:30 Pulse Rate 53 L Respiratory Rate 36 H Blood Pressure 114/55 L 96/54 L Pulse Oximetry 96 05/13/22 20:30 05/13/22 20:45 05/13/22 20:45 Pulse Rate 51 L 55 L Respiratory Rate 25 H 28 H Blood Pressure 101/56 L Pulse Oximetry 96 97 05/13/22 21:00 05/13/22 21:16 05/13/22 21:16 Pulse Rate 54 L 62 Respiratory Rate 34 H 31 H Blood Pressure 90/64 Pulse Oximetry 96 98 05/13/22 21:30 05/13/22 21:30 05/13/22 21:45 Pulse Rate 52 L Respiratory Rate 28 H Blood Pressure 85/60 L 87/62 L Pulse Oximetry 97 05/13/22 21:45 05/13/22 22:00 05/13/22 22:01 Pulse Rate 57 L 81 132 H Respiratory Rate 30 H 38 H 41 H Blood Pressure Pulse Oximetry 96 94 94 05/13/22 22:01 05/13/22 22:30 05/13/22 22:31 Pulse Rate 63 57 L Respiratory Rate 34 H 37 H Blood Pressure 91/65 Pulse Oximetry 94 95 05/13/22 22:31 05/13/22 22:45 05/13/22 22:45 Pulse Rate 54 L Respiratory Rate 29 H Blood Pressure 96/54 L 105/60 Pulse Oximetry 95 05/13/22 23:00 05/13/22 23:00 05/13/22 23:15 Pulse Rate 66 56 L Respiratory Rate 34 H 27 H Blood Pressure 104/57 L Pulse Oximetry 96 96 05/13/22 23:15 05/13/22 23:30 05/13/22 23:30 Pulse Rate 54 L Respiratory Rate 29 H Blood Pressure 84/64 L 92/63 Pulse Oximetry 96 05/13/22 23:45 05/13/22 23:45 05/14/22 00:00 Pulse Rate 56 L Respiratory Rate 30 H Blood Pressure 103/61 92/62 Pulse Oximetry 93 05/14/22 00:00 05/14/22 00:30 05/14/22 00:31 Pulse Rate 56 L 54 L Respiratory Rate 33 H 32 H Blood Pressure 83/52 L Pulse Oximetry 94 93 05/14/22 00:31 05/14/22 00:45 05/14/22 00:45 Pulse Rate 54 L 58 L Respiratory Rate 31 H 32 H Blood Pressure 85/62 L Pulse Oximetry 93 95 05/14/22 01:00 05/14/22 01:00 Pulse Rate 79 Respiratory Rate 31 H Blood Pressure 100/58 L Pulse Oximetry 95 MDM - SOB/Dyspnea <Tae Frankel, DO - Last Filed: 05/18/22 17:44> Lab Data Result diagrams: 05/13/22 08:00 05/13/22 08:00 Labs: Lab Results 05/10/22 05/10/22 05/10/22 Range/Units 19:27 19:35 19:35 WBC 9.3 (4.5-11.0) X10^3/uL RBC 4.61 (4.5-5.9) X10^6/uL Hgb 14.0 (13.5-17.5) g/dL Hct 41.9 (41-53) % MCV 90.9 (80-100) fL MCH 30.4 (26-34) PG MCHC 33.4 (30-36) % RDW 14.9 H (11.6-14.8) % Plt Count 202 (150-400) X10^3/uL Neut % (Auto) 73.3 (50-75) % Lymph % (Auto) 15.2 L (25-40) % [place] % (Auto) 8.6 (3-14) % Eos % (Auto) 2.0 (2-4) % Baso % (Auto) 0.9 (0-2) % Neut # (Auto) 6800 (3093-4550) /uL Lymph # (Auto) 1400 (4693-0745) /uL [place] # (Auto) 800 (0-900) /uL Eos # (Auto) 200 (0-450) /uL Baso # (Auto) 100 (0-100) /uL PT (10.1-12.7) SECONDS INR (0.9-1.3) APTT (26.4-36.2) SECONDS ABG pH (7.35-7.45) ABG pCO2 (35-45) mmHg ABG pO2 (80-100) mmHg ABG HCO3 (22-26) mmol/L ABG Total CO2 (21-31) mmol/L ABG O2 Saturation (95-100) % ABG Base Excess (-2-2) mmol/L FiO2 Sodium 136 L (137-145) mmol/L Potassium 4.2 (3.4-5.1) mmol/L Chloride 95 L (98-107) mmol/L Carbon Dioxide 39 H (22-32) mmol/L BUN 30 H (9-20) mg/dL Creatinine 0.88 (0.66-1.25) mg/dL Estimated GFR > 60 (>60) mL/min BUN/Creatinine Ratio 34.1 H (6-22) Glucose 107 (80-110) mg/dL Lactate (0.7-2.1) mmol/L Calcium 8.7 (8.4-10.2) mg/dL Magnesium 1.9 (1.6-2.3) mg/dL Total Bilirubin 0.6 (0.2-1.3) mg/dL AST 32 (17-59) IU/L ALT 20 (<50) IU/L Alkaline Phosphatase 128 H (38-126) U/L Total Creatine Kinase 22 L (55-170) U/L CK-MB (CK-2) TNP CK-MB (CK-2) Rel Index TNP Troponin I < 0.012 (0.01-0.034) ng/mL C-Reactive Protein 2.2 H (<1.0) mg/dL NT-Pro-B Natriuret Pep 2560 H (<450) pg/mL Total Protein 6.2 L (6.3-8.2) g/dL Albumin 3.3 L (3.5-5.0) g/dL Globulin 2.9 (1.7-4.1) g/dL Albumin/Globulin Ratio 1.1 (1.0-2.8) Procalcitonin 0.05 (<0.5) ng/mL Fluid Color Fluid Appearance Fluid RBC /uL Fld Tot Nucleated Cell /uL Fluid Polynuclear WBCs % Fluid Mononuclear WBCs % Fluid Eosinophils Fluid Other Cells % Body Fluid Clot Fluid Glucose mg/dL Fluid Total Protein g/dL Fluid LDH U/L Chlamy pneumoniae PCR (Not Detect) Adenovirus (PCR) (Not Detect) B. pertussis DNA (PCR) (Not Detecte) B.parapertussis DNA PCR (Not Detecte) Coronavirus OC43 (PCR) (Not Detect) Coronavirus HKU1 (PCR) (Not Detect) Coronavirus 229E (PCR) (Not Detect) SARS-CoV-2 (PCR) (Negative) Coronavirus NL63 (PCR) (Not Detect) Human Metapneumovir PCR (Not Detect) Influenza Type A (PCR) (Not Detect) Influenza Type B (PCR) (Not Detect) M. pneumoniae (PCR) (Not Detect) Parainfluenza 1 (PCR) (Not Detect) Parainfluenza 2 (PCR) (Not Detect) Parainfluenza 3 (PCR) (Not Detect) Parainfluenza 4 (PCR) (Not Detect) RSV (PCR) (Not Detect) Entero/Rhino (PCR) (Not Detect) 05/10/22 05/10/22 05/10/22 Range/Units 19:35 19:35 19:35 WBC (4.5-11.0) X10^3/uL RBC (4.5-5.9) X10^6/uL Hgb (13.5-17.5) g/dL Hct (41-53) % MCV (80-100) fL MCH (26-34) PG MCHC (30-36) % RDW (11.6-14.8) % Plt Count (150-400) X10^3/uL Neut % (Auto) (50-75) % Lymph % (Auto) (25-40) % [place] % (Auto) (3-14) % Eos % (Auto) (2-4) % Baso % (Auto) (0-2) % Neut # (Auto) (2797-7769) /uL Lymph # (Auto) (2965-5563) /uL [place] # (Auto) (0-900) /uL Eos # (Auto) (0-450) /uL Baso # (Auto) (0-100) /uL PT 13.7 H (10.1-12.7) SECONDS INR 1.2 (0.9-1.3) APTT (26.4-36.2) SECONDS ABG pH (7.35-7.45) ABG pCO2 (35-45) mmHg ABG pO2 (80-100) mmHg ABG HCO3 (22-26) mmol/L ABG Total CO2 (21-31) mmol/L ABG O2 Saturation (95-100) % ABG Base Excess (-2-2) mmol/L FiO2 Sodium (137-145) mmol/L Potassium (3.4-5.1) mmol/L Chloride (98-107) mmol/L Carbon Dioxide (22-32) mmol/L BUN (9-20) mg/dL Creatinine (0.66-1.25) mg/dL Estimated GFR (>60) mL/min BUN/Creatinine Ratio (6-22) Glucose (80-110) mg/dL Lactate 1.1 (0.7-2.1) mmol/L Calcium (8.4-10.2) mg/dL Magnesium (1.6-2.3) mg/dL Total Bilirubin (0.2-1.3) mg/dL AST (17-59) IU/L ALT (<50) IU/L Alkaline Phosphatase (38-126) U/L Total Creatine Kinase (55-170) U/L CK-MB (CK-2) CK-MB (CK-2) Rel Index Troponin I (0.01-0.034) ng/mL C-Reactive Protein (<1.0) mg/dL NT-Pro-B Natriuret Pep (<450) pg/mL Total Protein (6.3-8.2) g/dL Albumin (3.5-5.0) g/dL Globulin (1.7-4.1) g/dL Albumin/Globulin Ratio (1.0-2.8) Procalcitonin (<0.5) ng/mL Fluid Color Fluid Appearance Fluid RBC /uL Fld Tot Nucleated Cell /uL Fluid Polynuclear WBCs % Fluid Mononuclear WBCs % Fluid Eosinophils Fluid Other Cells % Body Fluid Clot Fluid Glucose mg/dL Fluid Total Protein g/dL Fluid LDH U/L Chlamy pneumoniae PCR (Not Detect) Adenovirus (PCR) (Not Detect) B. pertussis DNA (PCR) (Not Detecte) B.parapertussis DNA PCR (Not Detecte) Coronavirus OC43 (PCR) (Not Detect) Coronavirus HKU1 (PCR) (Not Detect) Coronavirus 229E (PCR) (Not Detect) SARS-CoV-2 (PCR) Negative (Negative) Coronavirus NL63 (PCR) (Not Detect) Human Metapneumovir PCR (Not Detect) Influenza Type A (PCR) (Not Detect) Influenza Type B (PCR) (Not Detect) M. pneumoniae (PCR) (Not Detect) Parainfluenza 1 (PCR) (Not Detect) Parainfluenza 2 (PCR) (Not Detect) Parainfluenza 3 (PCR) (Not Detect) Parainfluenza 4 (PCR) (Not Detect) RSV (PCR) (Not Detect) Entero/Rhino (PCR) (Not Detect) 05/10/22 05/10/22 05/11/22 Range/Units 19:35 19:47 03:35 WBC (4.5-11.0) X10^3/uL RBC (4.5-5.9) X10^6/uL Hgb (13.5-17.5) g/dL Hct (41-53) % MCV (80-100) fL MCH (26-34) PG MCHC (30-36) % RDW (11.6-14.8) % Plt Count (150-400) X10^3/uL Neut % (Auto) (50-75) % Lymph % (Auto) (25-40) % [place] % (Auto) (3-14) % Eos % (Auto) (2-4) % Baso % (Auto) (0-2) % Neut # (Auto) (3297-4841) /uL Lymph # (Auto) (3433-2585) /uL [place] # (Auto) (0-900) /uL Eos # (Auto) (0-450) /uL Baso # (Auto) (0-100) /uL PT (10.1-12.7) SECONDS INR (0.9-1.3) APTT 33 186 H* D (26.4-36.2) SECONDS ABG pH 7.35 (7.35-7.45) ABG pCO2 68.2 H* (35-45) mmHg ABG pO2 65 L (80-100) mmHg ABG HCO3 38 H (22-26) mmol/L ABG Total CO2 40 H (21-31) mmol/L ABG O2 Saturation 90 L (95-100) % ABG Base Excess 12.0 H (-2-2) mmol/L FiO2 32 Sodium (137-145) mmol/L Potassium (3.4-5.1) mmol/L Chloride (98-107) mmol/L Carbon Dioxide (22-32) mmol/L BUN (9-20) mg/dL Creatinine (0.66-1.25) mg/dL Estimated GFR (>60) mL/min BUN/Creatinine Ratio (6-22) Glucose (80-110) mg/dL Lactate (0.7-2.1) mmol/L Calcium (8.4-10.2) mg/dL Magnesium (1.6-2.3) mg/dL Total Bilirubin (0.2-1.3) mg/dL AST (17-59) IU/L ALT (<50) IU/L Alkaline Phosphatase (38-126) U/L Total Creatine Kinase (55-170) U/L CK-MB (CK-2) CK-MB (CK-2) Rel Index Troponin I (0.01-0.034) ng/mL C-Reactive Protein (<1.0) mg/dL NT-Pro-B Natriuret Pep (<450) pg/mL Total Protein (6.3-8.2) g/dL Albumin (3.5-5.0) g/dL Globulin (1.7-4.1) g/dL Albumin/Globulin Ratio (1.0-2.8) Procalcitonin (<0.5) ng/mL Fluid Color Fluid Appearance Fluid RBC /uL Fld Tot Nucleated Cell /uL Fluid Polynuclear WBCs % Fluid Mononuclear WBCs % Fluid Eosinophils Fluid Other Cells % Body Fluid Clot Fluid Glucose mg/dL Fluid Total Protein g/dL Fluid LDH U/L Chlamy pneumoniae PCR (Not Detect) Adenovirus (PCR) (Not Detect) B. pertussis DNA (PCR) (Not Detecte) B.parapertussis DNA PCR (Not Detecte) Coronavirus OC43 (PCR) (Not Detect) Coronavirus HKU1 (PCR) (Not Detect) Coronavirus 229E (PCR) (Not Detect) SARS-CoV-2 (PCR) (Negative) Coronavirus NL63 (PCR) (Not Detect) Human Metapneumovir PCR (Not Detect) Influenza Type A (PCR) (Not Detect) Influenza Type B (PCR) (Not Detect) M. pneumoniae (PCR) (Not Detect) Parainfluenza 1 (PCR) (Not Detect) Parainfluenza 2 (PCR) (Not Detect) Parainfluenza 3 (PCR) (Not Detect) Parainfluenza 4 (PCR) (Not Detect) RSV (PCR) (Not Detect) Entero/Rhino (PCR) (Not Detect) 05/11/22 05/11/22 05/11/22 Range/Units 03:35 03:35 11:59 WBC 8.5 (4.5-11.0) X10^3/uL RBC 4.97 (4.5-5.9) X10^6/uL Hgb 15.2 (13.5-17.5) g/dL Hct 45.4 (41-53) % MCV 91.5 (80-100) fL MCH 30.6 (26-34) PG MCHC 33.4 (30-36) % RDW 14.6 (11.6-14.8) % Plt Count 175 (150-400) X10^3/uL Neut % (Auto) 76.2 H (50-75) % Lymph % (Auto) 10.6 L (25-40) % [place] % (Auto) 10.7 (3-14) % Eos % (Auto) 1.9 L (2-4) % Baso % (Auto) 0.6 (0-2) % Neut # (Auto) 6500 (8717-0028) /uL Lymph # (Auto) 900 L (2601-2610) /uL [place] # (Auto) 900 (0-900) /uL Eos # (Auto) 200 (0-450) /uL Baso # (Auto) 0 (0-100) /uL PT (10.1-12.7) SECONDS INR (0.9-1.3) APTT 58 H D (26.4-36.2) SECONDS ABG pH (7.35-7.45) ABG pCO2 (35-45) mmHg ABG pO2 (80-100) mmHg ABG HCO3 (22-26) mmol/L ABG Total CO2 (21-31) mmol/L ABG O2 Saturation (95-100) % ABG Base Excess (-2-2) mmol/L FiO2 Sodium 139 (137-145) mmol/L Potassium 4.5 (3.4-5.1) mmol/L Chloride 92 L (98-107) mmol/L Carbon Dioxide 43 H* (22-32) mmol/L BUN 27 H (9-20) mg/dL Creatinine 0.94 (0.66-1.25) mg/dL Estimated GFR > 60 (>60) mL/min BUN/Creatinine Ratio 28.7 H (6-22) Glucose 118 H (80-110) mg/dL Lactate (0.7-2.1) mmol/L Calcium 8.6 (8.4-10.2) mg/dL Magnesium (1.6-2.3) mg/dL Total Bilirubin 0.9 (0.2-1.3) mg/dL AST 33 (17-59) IU/L ALT 21 (<50) IU/L Alkaline Phosphatase 128 H (38-126) U/L Total Creatine Kinase 22 L (55-170) U/L CK-MB (CK-2) TNP CK-MB (CK-2) Rel Index TNP Troponin I 0.016 (0.01-0.034) ng/mL C-Reactive Protein (<1.0) mg/dL NT-Pro-B Natriuret Pep 2730 H (<450) pg/mL Total Protein 6.6 (6.3-8.2) g/dL Albumin 3.5 (3.5-5.0) g/dL Globulin 3.1 (1.7-4.1) g/dL Albumin/Globulin Ratio 1.1 (1.0-2.8) Procalcitonin (<0.5) ng/mL Fluid Color Fluid Appearance Fluid RBC /uL Fld Tot Nucleated Cell /uL Fluid Polynuclear WBCs % Fluid Mononuclear WBCs % Fluid Eosinophils Fluid Other Cells % Body Fluid Clot Fluid Glucose mg/dL Fluid Total Protein g/dL Fluid LDH U/L Chlamy pneumoniae PCR (Not Detect) Adenovirus (PCR) (Not Detect) B. pertussis DNA (PCR) (Not Detecte) B.parapertussis DNA PCR (Not Detecte) Coronavirus OC43 (PCR) (Not Detect) Coronavirus HKU1 (PCR) (Not Detect) Coronavirus 229E (PCR) (Not Detect) SARS-CoV-2 (PCR) (Negative) Coronavirus NL63 (PCR) (Not Detect) Human Metapneumovir PCR (Not Detect) Influenza Type A (PCR) (Not Detect) Influenza Type B (PCR) (Not Detect) M. pneumoniae (PCR) (Not Detect) Parainfluenza 1 (PCR) (Not Detect) Parainfluenza 2 (PCR) (Not Detect) Parainfluenza 3 (PCR) (Not Detect) Parainfluenza 4 (PCR) (Not Detect) RSV (PCR) (Not Detect) Entero/Rhino (PCR) (Not Detect) 05/11/22 05/11/22 05/11/22 Range/Units 11:59 11:59 11:59 WBC (4.5-11.0) X10^3/uL RBC (4.5-5.9) X10^6/uL Hgb (13.5-17.5) g/dL Hct (41-53) % MCV (80-100) fL MCH (26-34) PG MCHC (30-36) % RDW (11.6-14.8) % Plt Count (150-400) X10^3/uL Neut % (Auto) (50-75) % Lymph % (Auto) (25-40) % [place] % (Auto) (3-14) % Eos % (Auto) (2-4) % Baso % (Auto) (0-2) % Neut # (Auto) (8850-6231) /uL Lymph # (Auto) (9054-8522) /uL [place] # (Auto) (0-900) /uL Eos # (Auto) (0-450) /uL Baso # (Auto) (0-100) /uL PT 14.5 H (10.1-12.7) SECONDS INR 1.3 (0.9-1.3) APTT Cancelled (26.4-36.2) SECONDS ABG pH (7.35-7.45) ABG pCO2 (35-45) mmHg ABG pO2 (80-100) mmHg ABG HCO3 (22-26) mmol/L ABG Total CO2 (21-31) mmol/L ABG O2 Saturation (95-100) % ABG Base Excess (-2-2) mmol/L FiO2 Sodium (137-145) mmol/L Potassium (3.4-5.1) mmol/L Chloride (98-107) mmol/L Carbon Dioxide (22-32) mmol/L BUN (9-20) mg/dL Creatinine (0.66-1.25) mg/dL Estimated GFR (>60) mL/min BUN/Creatinine Ratio (6-22) Glucose (80-110) mg/dL Lactate (0.7-2.1) mmol/L Calcium (8.4-10.2) mg/dL Magnesium (1.6-2.3) mg/dL Total Bilirubin (0.2-1.3) mg/dL AST (17-59) IU/L ALT (<50) IU/L Alkaline Phosphatase (38-126) U/L Total Creatine Kinase (55-170) U/L CK-MB (CK-2) CK-MB (CK-2) Rel Index Troponin I 0.013 (0.01-0.034) ng/mL C-Reactive Protein (<1.0) mg/dL NT-Pro-B Natriuret Pep 4630 H (<450) pg/mL Total Protein (6.3-8.2) g/dL Albumin (3.5-5.0) g/dL Globulin (1.7-4.1) g/dL Albumin/Globulin Ratio (1.0-2.8) Procalcitonin (<0.5) ng/mL Fluid Color Fluid Appearance Fluid RBC /uL Fld Tot Nucleated Cell /uL Fluid Polynuclear WBCs % Fluid Mononuclear WBCs % Fluid Eosinophils Fluid Other Cells % Body Fluid Clot Fluid Glucose mg/dL Fluid Total Protein g/dL Fluid LDH U/L Chlamy pneumoniae PCR (Not Detect) Adenovirus (PCR) (Not Detect) B. pertussis DNA (PCR) (Not Detecte) B.parapertussis DNA PCR (Not Detecte) Coronavirus OC43 (PCR) (Not Detect) Coronavirus HKU1 (PCR) (Not Detect) Coronavirus 229E (PCR) (Not Detect) SARS-CoV-2 (PCR) (Negative) Coronavirus NL63 (PCR) (Not Detect) Human Metapneumovir PCR (Not Detect) Influenza Type A (PCR) (Not Detect) Influenza Type B (PCR) (Not Detect) M. pneumoniae (PCR) (Not Detect) Parainfluenza 1 (PCR) (Not Detect) Parainfluenza 2 (PCR) (Not Detect) Parainfluenza 3 (PCR) (Not Detect) Parainfluenza 4 (PCR) (Not Detect) RSV (PCR) (Not Detect) Entero/Rhino (PCR) (Not Detect) 05/11/22 05/12/22 05/12/22 Range/Units 19:14 04:30 07:58 WBC 10.1 (4.5-11.0) X10^3/uL RBC 4.65 (4.5-5.9) X10^6/uL Hgb 14.0 (13.5-17.5) g/dL Hct 42.2 (41-53) % MCV 90.7 (80-100) fL MCH 30.1 (26-34) PG MCHC 33.2 (30-36) % RDW 14.8 (11.6-14.8) % Plt Count 209 (150-400) X10^3/uL Neut % (Auto) 78.0 H (50-75) % Lymph % (Auto) 11.5 L (25-40) % [place] % (Auto) 8.0 (3-14) % Eos % (Auto) 1.8 L (2-4) % Baso % (Auto) 0.7 (0-2) % Neut # (Auto) 7900 H (9670-7053) /uL Lymph # (Auto) 1200 (8376-8385) /uL [place] # (Auto) 800 (0-900) /uL Eos # (Auto) 200 (0-450) /uL Baso # (Auto) 100 (0-100) /uL PT (10.1-12.7) SECONDS INR (0.9-1.3) APTT 76 H* D 60 H D (26.4-36.2) SECONDS ABG pH (7.35-7.45) ABG pCO2 (35-45) mmHg ABG pO2 (80-100) mmHg ABG HCO3 (22-26) mmol/L ABG Total CO2 (21-31) mmol/L ABG O2 Saturation (95-100) % ABG Base Excess (-2-2) mmol/L FiO2 Sodium (137-145) mmol/L Potassium (3.4-5.1) mmol/L Chloride (98-107) mmol/L Carbon Dioxide (22-32) mmol/L BUN (9-20) mg/dL Creatinine (0.66-1.25) mg/dL Estimated GFR (>60) mL/min BUN/Creatinine Ratio (6-22) Glucose (80-110) mg/dL Lactate (0.7-2.1) mmol/L Calcium (8.4-10.2) mg/dL Magnesium (1.6-2.3) mg/dL Total Bilirubin (0.2-1.3) mg/dL AST (17-59) IU/L ALT (<50) IU/L Alkaline Phosphatase (38-126) U/L Total Creatine Kinase (55-170) U/L CK-MB (CK-2) CK-MB (CK-2) Rel Index Troponin I (0.01-0.034) ng/mL C-Reactive Protein (<1.0) mg/dL NT-Pro-B Natriuret Pep (<450) pg/mL Total Protein (6.3-8.2) g/dL Albumin (3.5-5.0) g/dL Globulin (1.7-4.1) g/dL Albumin/Globulin Ratio (1.0-2.8) Procalcitonin (<0.5) ng/mL Fluid Color Fluid Appearance Fluid RBC /uL Fld Tot Nucleated Cell /uL Fluid Polynuclear WBCs % Fluid Mononuclear WBCs % Fluid Eosinophils Fluid Other Cells % Body Fluid Clot Fluid Glucose mg/dL Fluid Total Protein g/dL Fluid LDH U/L Chlamy pneumoniae PCR (Not Detect) Adenovirus (PCR) (Not Detect) B. pertussis DNA (PCR) (Not Detecte) B.parapertussis DNA PCR (Not Detecte) Coronavirus OC43 (PCR) (Not Detect) Coronavirus HKU1 (PCR) (Not Detect) Coronavirus 229E (PCR) (Not Detect) SARS-CoV-2 (PCR) (Negative) Coronavirus NL63 (PCR) (Not Detect) Human Metapneumovir PCR (Not Detect) Influenza Type A (PCR) (Not Detect) Influenza Type B (PCR) (Not Detect) M. pneumoniae (PCR) (Not Detect) Parainfluenza 1 (PCR) (Not Detect) Parainfluenza 2 (PCR) (Not Detect) Parainfluenza 3 (PCR) (Not Detect) Parainfluenza 4 (PCR) (Not Detect) RSV (PCR) (Not Detect) Entero/Rhino (PCR) (Not Detect) 05/12/22 05/12/22 05/13/22 Range/Units 07:58 07:58 04:36 WBC (4.5-11.0) X10^3/uL RBC (4.5-5.9) X10^6/uL Hgb (13.5-17.5) g/dL Hct (41-53) % MCV (80-100) fL MCH (26-34) PG MCHC (30-36) % RDW (11.6-14.8) % Plt Count (150-400) X10^3/uL Neut % (Auto) (50-75) % Lymph % (Auto) (25-40) % [place] % (Auto) (3-14) % Eos % (Auto) (2-4) % Baso % (Auto) (0-2) % Neut # (Auto) (6366-5108) /uL Lymph # (Auto) (4900-4771) /uL [place] # (Auto) (0-900) /uL Eos # (Auto) (0-450) /uL Baso # (Auto) (0-100) /uL PT (10.1-12.7) SECONDS INR (0.9-1.3) APTT 54 H (26.4-36.2) SECONDS ABG pH (7.35-7.45) ABG pCO2 (35-45) mmHg ABG pO2 (80-100) mmHg ABG HCO3 (22-26) mmol/L ABG Total CO2 (21-31) mmol/L ABG O2 Saturation (95-100) % ABG Base Excess (-2-2) mmol/L FiO2 Sodium 134 L (137-145) mmol/L Potassium 4.0 (3.4-5.1) mmol/L Chloride 93 L (98-107) mmol/L Carbon Dioxide 39 H (22-32) mmol/L BUN 23 H (9-20) mg/dL Creatinine 0.60 L (0.66-1.25) mg/dL Estimated GFR > 60 (>60) mL/min BUN/Creatinine Ratio 38.3 H (6-22) Glucose 119 H (80-110) mg/dL Lactate (0.7-2.1) mmol/L Calcium 8.2 L (8.4-10.2) mg/dL Magnesium (1.6-2.3) mg/dL Total Bilirubin 0.6 (0.2-1.3) mg/dL AST 27 (17-59) IU/L ALT 18 (<50) IU/L Alkaline Phosphatase 111 (38-126) U/L Total Creatine Kinase (55-170) U/L CK-MB (CK-2) CK-MB (CK-2) Rel Index Troponin I (0.01-0.034) ng/mL C-Reactive Protein (<1.0) mg/dL NT-Pro-B Natriuret Pep 3550 H (<450) pg/mL Total Protein 5.7 L (6.3-8.2) g/dL Albumin 3.0 L (3.5-5.0) g/dL Globulin 2.7 (1.7-4.1) g/dL Albumin/Globulin Ratio 1.1 (1.0-2.8) Procalcitonin (<0.5) ng/mL Fluid Color Fluid Appearance Fluid RBC /uL Fld Tot Nucleated Cell /uL Fluid Polynuclear WBCs % Fluid Mononuclear WBCs % Fluid Eosinophils Fluid Other Cells % Body Fluid Clot Fluid Glucose mg/dL Fluid Total Protein g/dL Fluid LDH U/L Chlamy pneumoniae PCR (Not Detect) Adenovirus (PCR) (Not Detect) B. pertussis DNA (PCR) (Not Detecte) B.parapertussis DNA PCR (Not Detecte) Coronavirus OC43 (PCR) (Not Detect) Coronavirus HKU1 (PCR) (Not Detect) Coronavirus 229E (PCR) (Not Detect) SARS-CoV-2 (PCR) (Negative) Coronavirus NL63 (PCR) (Not Detect) Human Metapneumovir PCR (Not Detect) Influenza Type A (PCR) (Not Detect) Influenza Type B (PCR) (Not Detect) M. pneumoniae (PCR) (Not Detect) Parainfluenza 1 (PCR) (Not Detect) Parainfluenza 2 (PCR) (Not Detect) Parainfluenza 3 (PCR) (Not Detect) Parainfluenza 4 (PCR) (Not Detect) RSV (PCR) (Not Detect) Entero/Rhino (PCR) (Not Detect) 05/13/22 05/13/22 05/13/22 Range/Units 08:00 08:00 10:27 WBC 10.9 (4.5-11.0) X10^3/uL RBC 4.60 (4.5-5.9) X10^6/uL Hgb 13.9 (13.5-17.5) g/dL Hct 41.8 (41-53) % MCV 90.9 (80-100) fL MCH 30.3 (26-34) PG MCHC 33.3 (30-36) % RDW 14.6 (11.6-14.8) % Plt Count 194 (150-400) X10^3/uL Neut % (Auto) 78.1 H (50-75) % Lymph % (Auto) 10.0 L (25-40) % [place] % (Auto) 9.2 (3-14) % Eos % (Auto) 2.0 (2-4) % Baso % (Auto) 0.7 (0-2) % Neut # (Auto) 8500 H (2452-4258) /uL Lymph # (Auto) 1100 (2478-5140) /uL [place] # (Auto) 1000 H (0-900) /uL Eos # (Auto) 200 (0-450) /uL Baso # (Auto) 100 (0-100) /uL PT (10.1-12.7) SECONDS INR (0.9-1.3) APTT (26.4-36.2) SECONDS ABG pH (7.35-7.45) ABG pCO2 (35-45) mmHg ABG pO2 (80-100) mmHg ABG HCO3 (22-26) mmol/L ABG Total CO2 (21-31) mmol/L ABG O2 Saturation (95-100) % ABG Base Excess (-2-2) mmol/L FiO2 Sodium 132 L (137-145) mmol/L Potassium 4.1 (3.4-5.1) mmol/L Chloride 90 L (98-107) mmol/L Carbon Dioxide 41 H* (22-32) mmol/L BUN 17 (9-20) mg/dL Creatinine 0.67 (0.66-1.25) mg/dL Estimated GFR > 60 (>60) mL/min BUN/Creatinine Ratio 25.4 H (6-22) Glucose 113 H (80-110) mg/dL Lactate (0.7-2.1) mmol/L Calcium 8.3 L (8.4-10.2) mg/dL Magnesium (1.6-2.3) mg/dL Total Bilirubin 0.7 (0.2-1.3) mg/dL AST 26 (17-59) IU/L ALT 19 (<50) IU/L Alkaline Phosphatase 113 (38-126) U/L Total Creatine Kinase (55-170) U/L CK-MB (CK-2) CK-MB (CK-2) Rel Index Troponin I (0.01-0.034) ng/mL C-Reactive Protein (<1.0) mg/dL NT-Pro-B Natriuret Pep (<450) pg/mL Total Protein 5.5 L (6.3-8.2) g/dL Albumin 2.9 L (3.5-5.0) g/dL Globulin 2.6 (1.7-4.1) g/dL Albumin/Globulin Ratio 1.1 (1.0-2.8) Procalcitonin (<0.5) ng/mL Fluid Color Fluid Appearance Fluid RBC /uL Fld Tot Nucleated Cell /uL Fluid Polynuclear WBCs % Fluid Mononuclear WBCs % Fluid Eosinophils Fluid Other Cells % Body Fluid Clot Fluid Glucose mg/dL Fluid Total Protein g/dL Fluid LDH U/L Chlamy pneumoniae PCR Not detected (Not Detect) Adenovirus (PCR) Not detected (Not Detect) B. pertussis DNA (PCR) Not detected (Not Detecte) B.parapertussis DNA PCR Not detected (Not Detecte) Coronavirus OC43 (PCR) Not detected (Not Detect) Coronavirus HKU1 (PCR) Not detected (Not Detect) Coronavirus 229E (PCR) Not detected (Not Detect) SARS-CoV-2 (PCR) Not detected (Negative) Coronavirus NL63 (PCR) Not detected (Not Detect) Human Metapneumovir PCR Not detected (Not Detect) Influenza Type A (PCR) Not detected (Not Detect) Influenza Type B (PCR) Not detected (Not Detect) M. pneumoniae (PCR) Not detected (Not Detect) Parainfluenza 1 (PCR) Not detected (Not Detect) Parainfluenza 2 (PCR) Not detected (Not Detect) Parainfluenza 3 (PCR) Not detected (Not Detect) Parainfluenza 4 (PCR) Not detected (Not Detect) RSV (PCR) Not detected (Not Detect) Entero/Rhino (PCR) Not detected (Not Detect) 05/13/22 05/13/22 05/13/22 Range/Units 14:15 14:15 20:37 WBC (4.5-11.0) X10^3/uL RBC (4.5-5.9) X10^6/uL Hgb (13.5-17.5) g/dL Hct (41-53) % MCV (80-100) fL MCH (26-34) PG MCHC (30-36) % RDW (11.6-14.8) % Plt Count (150-400) X10^3/uL Neut % (Auto) (50-75) % Lymph % (Auto) (25-40) % [place] % (Auto) (3-14) % Eos % (Auto) (2-4) % Baso % (Auto) (0-2) % Neut # (Auto) (4703-6554) /uL Lymph # (Auto) (2403-6384) /uL [place] # (Auto) (0-900) /uL Eos # (Auto) (0-450) /uL Baso # (Auto) (0-100) /uL PT (10.1-12.7) SECONDS INR (0.9-1.3) APTT 48 H (26.4-36.2) SECONDS ABG pH (7.35-7.45) ABG pCO2 (35-45) mmHg ABG pO2 (80-100) mmHg ABG HCO3 (22-26) mmol/L ABG Total CO2 (21-31) mmol/L ABG O2 Saturation (95-100) % ABG Base Excess (-2-2) mmol/L FiO2 Sodium (137-145) mmol/L Potassium (3.4-5.1) mmol/L Chloride (98-107) mmol/L Carbon Dioxide (22-32) mmol/L BUN (9-20) mg/dL Creatinine (0.66-1.25) mg/dL Estimated GFR (>60) mL/min BUN/Creatinine Ratio (6-22) Glucose (80-110) mg/dL Lactate (0.7-2.1) mmol/L Calcium (8.4-10.2) mg/dL Magnesium (1.6-2.3) mg/dL Total Bilirubin (0.2-1.3) mg/dL AST (17-59) IU/L ALT (<50) IU/L Alkaline Phosphatase (38-126) U/L Total Creatine Kinase (55-170) U/L CK-MB (CK-2) CK-MB (CK-2) Rel Index Troponin I (0.01-0.034) ng/mL C-Reactive Protein (<1.0) mg/dL NT-Pro-B Natriuret Pep (<450) pg/mL Total Protein (6.3-8.2) g/dL Albumin (3.5-5.0) g/dL Globulin (1.7-4.1) g/dL Albumin/Globulin Ratio (1.0-2.8) Procalcitonin (<0.5) ng/mL Fluid Color Yellow Fluid Appearance Clear Fluid RBC 2536 /uL Fld Tot Nucleated Cell 567 /uL Fluid Polynuclear WBCs 2 % Fluid Mononuclear WBCs 97 % Fluid Eosinophils Not Reportable Fluid Other Cells 1 % Body Fluid Clot No clots present Fluid Glucose 114 mg/dL Fluid Total Protein 3.3 g/dL Fluid LDH 304 U/L Chlamy pneumoniae PCR (Not Detect) Adenovirus (PCR) (Not Detect) B. pertussis DNA (PCR) (Not Detecte) B.parapertussis DNA PCR (Not Detecte) Coronavirus OC43 (PCR) (Not Detect) Coronavirus HKU1 (PCR) (Not Detect) Coronavirus 229E (PCR) (Not Detect) SARS-CoV-2 (PCR) (Negative) Coronavirus NL63 (PCR) (Not Detect) Human Metapneumovir PCR (Not Detect) Influenza Type A (PCR) (Not Detect) Influenza Type B (PCR) (Not Detect) M. pneumoniae (PCR) (Not Detect) Parainfluenza 1 (PCR) (Not Detect) Parainfluenza 2 (PCR) (Not Detect) Parainfluenza 3 (PCR) (Not Detect) Parainfluenza 4 (PCR) (Not Detect) RSV (PCR) (Not Detect) Entero/Rhino (PCR) (Not Detect) Urine Dip Bedside Urine Glucose Negative Bedside Urine Bilirubin - Negative Urine Specific [place] 1.020 Bedside Urine Occult Blood - Negative Bedside Urine pH 5.5 Bedside Urine Protein - Negative Bedside Urine Urobilinogen - Negative Bedside Urine Nitrite - Negative Bedside Urine Leukocytes - Negative Esterase Imaging Data CT scan - chest: Radiologist's Impression: Close Chest CTA (Signed) Dexter Ruiz - 05/10/22 Chest X-Ray (Signed) Cuate Medeiros - 05/10/22 Launch?[place] [address] CT Scan Report Signed Patient: Lennox Devine MR#: [id number] : 1940 Acct:[id number] Age/Sex: 82 / M Date of Service: 05/10/22 Loc: ED Accession Number: [id number] ?? Procedure: CT angio chest PE protocol Ordering Provider: Tae Frankel D.O. PROCEDURE:? CT ANGIO CHEST PE PROTOCOL ? INDICATIONS:? SOB, hypoxemia, travel, sedentary ? TECHNIQUE:? After the administration of intravenous contrast, 2 mm thick sections acquired from the pulmonary apices to the posterior costophrenic angles.? 3-dimensional maximum in tensity projection (MIP) coronal and sagittal reformats were then acquired through the thorax.? For radiation dose reduction, the following was used:? automated exposure control, adjustment of mA and/or kV according to patient size.? ? [facility], [facility]/17/2011, 9:00.? [facility] 1[facility], 05/10/2022, 19:26. ? FINDINGS:? Image quality:? Excellent.? ? Pulmonary arteries:? Pulmonary arteries demonstrate filling defects within segmental and subsegmental pulmonary arteries within the right lower lobe consistent with pulmonary embolism.? There is enlargement of the pulmonary arteries, with the main pulmonary artery measuring up to 3.5 cm.? There is flattening of the interventricular septum without definite leftward deviation.? There is reflux of contrast into the inferior vena cava and hepatic veins suggestive of elevated right heart filling pressures. ? Lungs and pleura:? There is a moderate to large right pleural effusion with circumferential areas of loculation.? Dependent atelectasis is demonstrated in the right lung as well as consolidation in the right lower and middle lobes.? Bilateral subpleural reticulation are demonstrated consistent with chronic interstitial lung disease.? Paraseptal emphysematous changes are also demonstrated.? No left pleural effusion.? No pneumothorax.? The trachea and central airways appear patent. ? Mediastinum:? Heart size is enlarged, without pericardial effusion.? Thoracic aorta is normal in caliber and enhancement.? There are few mildly enlarged mediastinal lymph nodes including a precarinal node measuring up to 1.4 cm in short axis.? Esophagus is normal in caliber, with a small hiatal hernia.? ? Bones and chest wall:? No suspicious bony lesions.? There is a mild anterior compression deformity of the T12 vertebral body which appears similar to the prior x-ray study.? Thyroid gland demonstrates no discrete nodules.? No axillary or supraclavicular adenopathy.? ? Abdomen:? Visualized upper abdomen demonstrates calcifications within the liver and spleen consistent with sequelae of old granulomas disease. ? IMPRESSION:? ? 1. Pulmonary embolism demonstrated within segmental and subsegmental pulmonary arteries in the right lower lobe. ? 2. Enlargement of the pulmonary arteries and flattening of the interventricular septum may reflect developing right heart strain.? There is also evidence of right heart filling pressures with reflux of contrast into the inferior vena cava and hepatic veins. ? 3. Moderate to large loculated right pleural effusion and extensive consolidation in the right lower lobe and right middle lobe.? Associated pneumonia is not excluded. ? 4. Findings consistent with chronic interstitial lung disease. ? 5. Mildly enlarged mediastinal lymph nodes are nonspecific but likely reactive. ? Findings discussed with Dr. Frankel on 05/10/2022 at 9:21 p.m..? ? Dictated by: Dexter Ruiz M.D. on 05/10/2022 at 21:12 ? ? Approved by: Dexter Ruiz M.D. on 05/10/2022 at 21:25 ? [facility] Narrative Medical decision making narrative: 82-year-old male with extensive medical history presents with a chief complaint of worsening shortness of breath over at least the past 24 hours or so. At baseline he uses 2 L of oxygen but has had to increase to 4 L and states that minimal exertion create significant shortness of breath. He denies any change in medications and states that he has been compliant with all meds. His workup demonstrates right-sided pulmonary emboli with possible evidence of radiographic right heart strain along with a large loculated effusion and possible right lower lobe pneumonia. Patient exceeds the capability of our facility, he has been started on heparin drip and given Zosyn. Calls have been placed to the [facility], [place], [facility], and [facility]. Patient had not yet had his day meds and became short of breath, it was noted that he had entered into a rapid atrial fibrillation, sotalol ordered. Patient signed out to Dr. Novak at shift change for final disposition <Gail Novak MD - Last Filed: 05/19/22 03:44> Differential Diagnosis Differential diagnosis: Likely congestive heart failure, community acquired pneumonia, pulmonary embolism and other (Atrial fibrillation) Lab Data Labs: Lab Results 05/10/22 05/10/22 05/10/22 Range/Units 19:27 19:35 19:35 WBC 9.3 (4.5-11.0) X10^3/uL RBC 4.61 (4.5-5.9) X10^6/uL Hgb 14.0 (13.5-17.5) g/dL Hct 41.9 (41-53) % MCV 90.9 (80-100) fL MCH 30.4 (26-34) PG MCHC 33.4 (30-36) % RDW 14.9 H (11.6-14.8) % Plt Count 202 (150-400) X10^3/uL Neut % (Auto) 73.3 (50-75) % Lymph % (Auto) 15.2 L (25-40) % [place] % (Auto) 8.6 (3-14) % Eos % (Auto) 2.0 (2-4) % Baso % (Auto) 0.9 (0-2) % Neut # (Auto) 6800 (5594-2400) /uL Lymph # (Auto) 1400 (7782-4182) /uL [place] # (Auto) 800 (0-900) /uL Eos # (Auto) 200 (0-450) /uL Baso # (Auto) 100 (0-100) /uL PT (10.1-12.7) SECONDS INR (0.9-1.3) APTT (26.4-36.2) SECONDS ABG pH (7.35-7.45) ABG pCO2 (35-45) mmHg ABG pO2 (80-100) mmHg ABG HCO3 (22-26) mmol/L ABG Total CO2 (21-31) mmol/L ABG O2 Saturation (95-100) % ABG Base Excess (-2-2) mmol/L FiO2 Sodium 136 L (137-145) mmol/L Potassium 4.2 (3.4-5.1) mmol/L Chloride 95 L (98-107) mmol/L Carbon Dioxide 39 H (22-32) mmol/L BUN 30 H (9-20) mg/dL Creatinine 0.88 (0.66-1.25) mg/dL Estimated GFR > 60 (>60) mL/min BUN/Creatinine Ratio 34.1 H (6-22) Glucose 107 (80-110) mg/dL Lactate (0.7-2.1) mmol/L Calcium 8.7 (8.4-10.2) mg/dL Magnesium 1.9 (1.6-2.3) mg/dL Total Bilirubin 0.6 (0.2-1.3) mg/dL AST 32 (17-59) IU/L ALT 20 (<50) IU/L Alkaline Phosphatase 128 H (38-126) U/L Total Creatine Kinase 22 L (55-170) U/L CK-MB (CK-2) TNP CK-MB (CK-2) Rel Index TNP Troponin I < 0.012 (0.01-0.034) ng/mL C-Reactive Protein 2.2 H (<1.0) mg/dL NT-Pro-B Natriuret Pep 2560 H (<450) pg/mL Total Protein 6.2 L (6.3-8.2) g/dL Albumin 3.3 L (3.5-5.0) g/dL Globulin 2.9 (1.7-4.1) g/dL Albumin/Globulin Ratio 1.1 (1.0-2.8) Procalcitonin 0.05 (<0.5) ng/mL Fluid Color Fluid Appearance Fluid RBC /uL Fld Tot Nucleated Cell /uL Fluid Polynuclear WBCs % Fluid Mononuclear WBCs % Fluid Eosinophils Fluid Other Cells % Body Fluid Clot Fluid Glucose mg/dL Fluid Total Protein g/dL Fluid LDH U/L Chlamy pneumoniae PCR (Not Detect) Adenovirus (PCR) (Not Detect) B. pertussis DNA (PCR) (Not Detecte) B.parapertussis DNA PCR (Not Detecte) Coronavirus OC43 (PCR) (Not Detect) Coronavirus HKU1 (PCR) (Not Detect) Coronavirus 229E (PCR) (Not Detect) SARS-CoV-2 (PCR) (Negative) Coronavirus NL63 (PCR) (Not Detect) Human Metapneumovir PCR (Not Detect) Influenza Type A (PCR) (Not Detect) Influenza Type B (PCR) (Not Detect) M. pneumoniae (PCR) (Not Detect) Parainfluenza 1 (PCR) (Not Detect) Parainfluenza 2 (PCR) (Not Detect) Parainfluenza 3 (PCR) (Not Detect) Parainfluenza 4 (PCR) (Not Detect) RSV (PCR) (Not Detect) Entero/Rhino (PCR) (Not Detect) 05/10/22 05/10/22 05/10/22 Range/Units 19:35 19:35 19:35 WBC (4.5-11.0) X10^3/uL RBC (4.5-5.9) X10^6/uL Hgb (13.5-17.5) g/dL Hct (41-53) % MCV (80-100) fL MCH (26-34) PG MCHC (30-36) % RDW (11.6-14.8) % Plt Count (150-400) X10^3/uL Neut % (Auto) (50-75) % Lymph % (Auto) (25-40) % [place] % (Auto) (3-14) % Eos % (Auto) (2-4) % Baso % (Auto) (0-2) % Neut # (Auto) (5033-0938) /uL Lymph # (Auto) (2557-5010) /uL [place] # (Auto) (0-900) /uL Eos # (Auto) (0-450) /uL Baso # (Auto) (0-100) /uL PT 13.7 H (10.1-12.7) SECONDS INR 1.2 (0.9-1.3) APTT (26.4-36.2) SECONDS ABG pH (7.35-7.45) ABG pCO2 (35-45) mmHg ABG pO2 (80-100) mmHg ABG HCO3 (22-26) mmol/L ABG Total CO2 (21-31) mmol/L ABG O2 Saturation (95-100) % ABG Base Excess (-2-2) mmol/L FiO2 Sodium (137-145) mmol/L Potassium (3.4-5.1) mmol/L Chloride (98-107) mmol/L Carbon Dioxide (22-32) mmol/L BUN (9-20) mg/dL Creatinine (0.66-1.25) mg/dL Estimated GFR (>60) mL/min BUN/Creatinine Ratio (6-22) Glucose (80-110) mg/dL Lactate 1.1 (0.7-2.1) mmol/L Calcium (8.4-10.2) mg/dL Magnesium (1.6-2.3) mg/dL Total Bilirubin (0.2-1.3) mg/dL AST (17-59) IU/L ALT (<50) IU/L Alkaline Phosphatase (38-126) U/L Total Creatine Kinase (55-170) U/L CK-MB (CK-2) CK-MB (CK-2) Rel Index Troponin I (0.01-0.034) ng/mL C-Reactive Protein (<1.0) mg/dL NT-Pro-B Natriuret Pep (<450) pg/mL Total Protein (6.3-8.2) g/dL Albumin (3.5-5.0) g/dL Globulin (1.7-4.1) g/dL Albumin/Globulin Ratio (1.0-2.8) Procalcitonin (<0.5) ng/mL Fluid Color Fluid Appearance Fluid RBC /uL Fld Tot Nucleated Cell /uL Fluid Polynuclear WBCs % Fluid Mononuclear WBCs % Fluid Eosinophils Fluid Other Cells % Body Fluid Clot Fluid Glucose mg/dL Fluid Total Protein g/dL Fluid LDH U/L Chlamy pneumoniae PCR (Not Detect) Adenovirus (PCR) (Not Detect) B. pertussis DNA (PCR) (Not Detecte) B.parapertussis DNA PCR (Not Detecte) Coronavirus OC43 (PCR) (Not Detect) Coronavirus HKU1 (PCR) (Not Detect) Coronavirus 229E (PCR) (Not Detect) SARS-CoV-2 (PCR) Negative (Negative) Coronavirus NL63 (PCR) (Not Detect) Human Metapneumovir PCR (Not Detect) Influenza Type A (PCR) (Not Detect) Influenza Type B (PCR) (Not Detect) M. pneumoniae (PCR) (Not Detect) Parainfluenza 1 (PCR) (Not Detect) Parainfluenza 2 (PCR) (Not Detect) Parainfluenza 3 (PCR) (Not Detect) Parainfluenza 4 (PCR) (Not Detect) RSV (PCR) (Not Detect) Entero/Rhino (PCR) (Not Detect) 05/10/22 05/10/22 05/11/22 Range/Units 19:35 19:47 03:35 WBC (4.5-11.0) X10^3/uL RBC (4.5-5.9) X10^6/uL Hgb (13.5-17.5) g/dL Hct (41-53) % MCV (80-100) fL MCH (26-34) PG MCHC (30-36) % RDW (11.6-14.8) % Plt Count (150-400) X10^3/uL Neut % (Auto) (50-75) % Lymph % (Auto) (25-40) % [place] % (Auto) (3-14) % Eos % (Auto) (2-4) % Baso % (Auto) (0-2) % Neut # (Auto) (6961-2478) /uL Lymph # (Auto) (0342-3205) /uL [place] # (Auto) (0-900) /uL Eos # (Auto) (0-450) /uL Baso # (Auto) (0-100) /uL PT (10.1-12.7) SECONDS INR (0.9-1.3) APTT 33 186 H* D (26.4-36.2) SECONDS ABG pH 7.35 (7.35-7.45) ABG pCO2 68.2 H* (35-45) mmHg ABG pO2 65 L (80-100) mmHg ABG HCO3 38 H (22-26) mmol/L ABG Total CO2 40 H (21-31) mmol/L ABG O2 Saturation 90 L (95-100) % ABG Base Excess 12.0 H (-2-2) mmol/L FiO2 32 Sodium (137-145) mmol/L Potassium (3.4-5.1) mmol/L Chloride (98-107) mmol/L Carbon Dioxide (22-32) mmol/L BUN (9-20) mg/dL Creatinine (0.66-1.25) mg/dL Estimated GFR (>60) mL/min BUN/Creatinine Ratio (6-22) Glucose (80-110) mg/dL Lactate (0.7-2.1) mmol/L Calcium (8.4-10.2) mg/dL Magnesium (1.6-2.3) mg/dL Total Bilirubin (0.2-1.3) mg/dL AST (17-59) IU/L ALT (<50) IU/L Alkaline Phosphatase (38-126) U/L Total Creatine Kinase (55-170) U/L CK-MB (CK-2) CK-MB (CK-2) Rel Index Troponin I (0.01-0.034) ng/mL C-Reactive Protein (<1.0) mg/dL NT-Pro-B Natriuret Pep (<450) pg/mL Total Protein (6.3-8.2) g/dL Albumin (3.5-5.0) g/dL Globulin (1.7-4.1) g/dL Albumin/Globulin Ratio (1.0-2.8) Procalcitonin (<0.5) ng/mL Fluid Color Fluid Appearance Fluid RBC /uL Fld Tot Nucleated Cell /uL Fluid Polynuclear WBCs % Fluid Mononuclear WBCs % Fluid Eosinophils Fluid Other Cells % Body Fluid Clot Fluid Glucose mg/dL Fluid Total Protein g/dL Fluid LDH U/L Chlamy pneumoniae PCR (Not Detect) Adenovirus (PCR) (Not Detect) B. pertussis DNA (PCR) (Not Detecte) B.parapertussis DNA PCR (Not Detecte) Coronavirus OC43 (PCR) (Not Detect) Coronavirus HKU1 (PCR) (Not Detect) Coronavirus 229E (PCR) (Not Detect) SARS-CoV-2 (PCR) (Negative) Coronavirus NL63 (PCR) (Not Detect) Human Metapneumovir PCR (Not Detect) Influenza Type A (PCR) (Not Detect) Influenza Type B (PCR) (Not Detect) M. pneumoniae (PCR) (Not Detect) Parainfluenza 1 (PCR) (Not Detect) Parainfluenza 2 (PCR) (Not Detect) Parainfluenza 3 (PCR) (Not Detect) Parainfluenza 4 (PCR) (Not Detect) RSV (PCR) (Not Detect) Entero/Rhino (PCR) (Not Detect) 05/11/22 05/11/22 05/11/22 Range/Units 03:35 03:35 11:59 WBC 8.5 (4.5-11.0) X10^3/uL RBC 4.97 (4.5-5.9) X10^6/uL Hgb 15.2 (13.5-17.5) g/dL Hct 45.4 (41-53) % MCV 91.5 (80-100) fL MCH 30.6 (26-34) PG MCHC 33.4 (30-36) % RDW 14.6 (11.6-14.8) % Plt Count 175 (150-400) X10^3/uL Neut % (Auto) 76.2 H (50-75) % Lymph % (Auto) 10.6 L (25-40) % [place] % (Auto) 10.7 (3-14) % Eos % (Auto) 1.9 L (2-4) % Baso % (Auto) 0.6 (0-2) % Neut # (Auto) 6500 (1133-4700) /uL Lymph # (Auto) 900 L (8957-7082) /uL [place] # (Auto) 900 (0-900) /uL Eos # (Auto) 200 (0-450) /uL Baso # (Auto) 0 (0-100) /uL PT (10.1-12.7) SECONDS INR (0.9-1.3) APTT 58 H D (26.4-36.2) SECONDS ABG pH (7.35-7.45) ABG pCO2 (35-45) mmHg ABG pO2 (80-100) mmHg ABG HCO3 (22-26) mmol/L ABG Total CO2 (21-31) mmol/L ABG O2 Saturation (95-100) % ABG Base Excess (-2-2) mmol/L FiO2 Sodium 139 (137-145) mmol/L Potassium 4.5 (3.4-5.1) mmol/L Chloride 92 L (98-107) mmol/L Carbon Dioxide 43 H* (22-32) mmol/L BUN 27 H (9-20) mg/dL Creatinine 0.94 (0.66-1.25) mg/dL Estimated GFR > 60 (>60) mL/min BUN/Creatinine Ratio 28.7 H (6-22) Glucose 118 H (80-110) mg/dL Lactate (0.7-2.1) mmol/L Calcium 8.6 (8.4-10.2) mg/dL Magnesium (1.6-2.3) mg/dL Total Bilirubin 0.9 (0.2-1.3) mg/dL AST 33 (17-59) IU/L ALT 21 (<50) IU/L Alkaline Phosphatase 128 H (38-126) U/L Total Creatine Kinase 22 L (55-170) U/L CK-MB (CK-2) TNP CK-MB (CK-2) Rel Index TNP Troponin I 0.016 (0.01-0.034) ng/mL C-Reactive Protein (<1.0) mg/dL NT-Pro-B Natriuret Pep 2730 H (<450) pg/mL Total Protein 6.6 (6.3-8.2) g/dL Albumin 3.5 (3.5-5.0) g/dL Globulin 3.1 (1.7-4.1) g/dL Albumin/Globulin Ratio 1.1 (1.0-2.8) Procalcitonin (<0.5) ng/mL Fluid Color Fluid Appearance Fluid RBC /uL Fld Tot Nucleated Cell /uL Fluid Polynuclear WBCs % Fluid Mononuclear WBCs % Fluid Eosinophils Fluid Other Cells % Body Fluid Clot Fluid Glucose mg/dL Fluid Total Protein g/dL Fluid LDH U/L Chlamy pneumoniae PCR (Not Detect) Adenovirus (PCR) (Not Detect) B. pertussis DNA (PCR) (Not Detecte) B.parapertussis DNA PCR (Not Detecte) Coronavirus OC43 (PCR) (Not Detect) Coronavirus HKU1 (PCR) (Not Detect) Coronavirus 229E (PCR) (Not Detect) SARS-CoV-2 (PCR) (Negative) Coronavirus NL63 (PCR) (Not Detect) Human Metapneumovir PCR (Not Detect) Influenza Type A (PCR) (Not Detect) Influenza Type B (PCR) (Not Detect) M. pneumoniae (PCR) (Not Detect) Parainfluenza 1 (PCR) (Not Detect) Parainfluenza 2 (PCR) (Not Detect) Parainfluenza 3 (PCR) (Not Detect) Parainfluenza 4 (PCR) (Not Detect) RSV (PCR) (Not Detect) Entero/Rhino (PCR) (Not Detect) 05/11/22 05/11/22 05/11/22 Range/Units 11:59 11:59 11:59 WBC (4.5-11.0) X10^3/uL RBC (4.5-5.9) X10^6/uL Hgb (13.5-17.5) g/dL Hct (41-53) % MCV (80-100) fL MCH (26-34) PG MCHC (30-36) % RDW (11.6-14.8) % Plt Count (150-400) X10^3/uL Neut % (Auto) (50-75) % Lymph % (Auto) (25-40) % [place] % (Auto) (3-14) % Eos % (Auto) (2-4) % Baso % (Auto) (0-2) % Neut # (Auto) (7366-5803) /uL Lymph # (Auto) (4509-1231) /uL [place] # (Auto) (0-900) /uL Eos # (Auto) (0-450) /uL Baso # (Auto) (0-100) /uL PT 14.5 H (10.1-12.7) SECONDS INR 1.3 (0.9-1.3) APTT Cancelled (26.4-36.2) SECONDS ABG pH (7.35-7.45) ABG pCO2 (35-45) mmHg ABG pO2 (80-100) mmHg ABG HCO3 (22-26) mmol/L ABG Total CO2 (21-31) mmol/L ABG O2 Saturation (95-100) % ABG Base Excess (-2-2) mmol/L FiO2 Sodium (137-145) mmol/L Potassium (3.4-5.1) mmol/L Chloride (98-107) mmol/L Carbon Dioxide (22-32) mmol/L BUN (9-20) mg/dL Creatinine (0.66-1.25) mg/dL Estimated GFR (>60) mL/min BUN/Creatinine Ratio (6-22) Glucose (80-110) mg/dL Lactate (0.7-2.1) mmol/L Calcium (8.4-10.2) mg/dL Magnesium (1.6-2.3) mg/dL Total Bilirubin (0.2-1.3) mg/dL AST (17-59) IU/L ALT (<50) IU/L Alkaline Phosphatase (38-126) U/L Total Creatine Kinase (55-170) U/L CK-MB (CK-2) CK-MB (CK-2) Rel Index Troponin I 0.013 (0.01-0.034) ng/mL C-Reactive Protein (<1.0) mg/dL NT-Pro-B Natriuret Pep 4630 H (<450) pg/mL Total Protein (6.3-8.2) g/dL Albumin (3.5-5.0) g/dL Globulin (1.7-4.1) g/dL Albumin/Globulin Ratio (1.0-2.8) Procalcitonin (<0.5) ng/mL Fluid Color Fluid Appearance Fluid RBC /uL Fld Tot Nucleated Cell /uL Fluid Polynuclear WBCs % Fluid Mononuclear WBCs % Fluid Eosinophils Fluid Other Cells % Body Fluid Clot Fluid Glucose mg/dL Fluid Total Protein g/dL Fluid LDH U/L Chlamy pneumoniae PCR (Not Detect) Adenovirus (PCR) (Not Detect) B. pertussis DNA (PCR) (Not Detecte) B.parapertussis DNA PCR (Not Detecte) Coronavirus OC43 (PCR) (Not Detect) Coronavirus HKU1 (PCR) (Not Detect) Coronavirus 229E (PCR) (Not Detect) SARS-CoV-2 (PCR) (Negative) Coronavirus NL63 (PCR) (Not Detect) Human Metapneumovir PCR (Not Detect) Influenza Type A (PCR) (Not Detect) Influenza Type B (PCR) (Not Detect) M. pneumoniae (PCR) (Not Detect) Parainfluenza 1 (PCR) (Not Detect) Parainfluenza 2 (PCR) (Not Detect) Parainfluenza 3 (PCR) (Not Detect) Parainfluenza 4 (PCR) (Not Detect) RSV (PCR) (Not Detect) Entero/Rhino (PCR) (Not Detect) 05/11/22 05/12/22 05/12/22 Range/Units 19:14 04:30 07:58 WBC 10.1 (4.5-11.0) X10^3/uL RBC 4.65 (4.5-5.9) X10^6/uL Hgb 14.0 (13.5-17.5) g/dL Hct 42.2 (41-53) % MCV 90.7 (80-100) fL MCH 30.1 (26-34) PG MCHC 33.2 (30-36) % RDW 14.8 (11.6-14.8) % Plt Count 209 (150-400) X10^3/uL Neut % (Auto) 78.0 H (50-75) % Lymph % (Auto) 11.5 L (25-40) % [place] % (Auto) 8.0 (3-14) % Eos % (Auto) 1.8 L (2-4) % Baso % (Auto) 0.7 (0-2) % Neut # (Auto) 7900 H (1613-4680) /uL Lymph # (Auto) 1200 (5469-1973) /uL [place] # (Auto) 800 (0-900) /uL Eos # (Auto) 200 (0-450) /uL Baso # (Auto) 100 (0-100) /uL PT (10.1-12.7) SECONDS INR (0.9-1.3) APTT 76 H* D 60 H D (26.4-36.2) SECONDS ABG pH (7.35-7.45) ABG pCO2 (35-45) mmHg ABG pO2 (80-100) mmHg ABG HCO3 (22-26) mmol/L ABG Total CO2 (21-31) mmol/L ABG O2 Saturation (95-100) % ABG Base Excess (-2-2) mmol/L FiO2 Sodium (137-145) mmol/L Potassium (3.4-5.1) mmol/L Chloride (98-107) mmol/L Carbon Dioxide (22-32) mmol/L BUN (9-20) mg/dL Creatinine (0.66-1.25) mg/dL Estimated GFR (>60) mL/min BUN/Creatinine Ratio (6-22) Glucose (80-110) mg/dL Lactate (0.7-2.1) mmol/L Calcium (8.4-10.2) mg/dL Magnesium (1.6-2.3) mg/dL Total Bilirubin (0.2-1.3) mg/dL AST (17-59) IU/L ALT (<50) IU/L Alkaline Phosphatase (38-126) U/L Total Creatine Kinase (55-170) U/L CK-MB (CK-2) CK-MB (CK-2) Rel Index Troponin I (0.01-0.034) ng/mL C-Reactive Protein (<1.0) mg/dL NT-Pro-B Natriuret Pep (<450) pg/mL Total Protein (6.3-8.2) g/dL Albumin (3.5-5.0) g/dL Globulin (1.7-4.1) g/dL Albumin/Globulin Ratio (1.0-2.8) Procalcitonin (<0.5) ng/mL Fluid Color Fluid Appearance Fluid RBC /uL Fld Tot Nucleated Cell /uL Fluid Polynuclear WBCs % Fluid Mononuclear WBCs % Fluid Eosinophils Fluid Other Cells % Body Fluid Clot Fluid Glucose mg/dL Fluid Total Protein g/dL Fluid LDH U/L Chlamy pneumoniae PCR (Not Detect) Adenovirus (PCR) (Not Detect) B. pertussis DNA (PCR) (Not Detecte) B.parapertussis DNA PCR (Not Detecte) Coronavirus OC43 (PCR) (Not Detect) Coronavirus HKU1 (PCR) (Not Detect) Coronavirus 229E (PCR) (Not Detect) SARS-CoV-2 (PCR) (Negative) Coronavirus NL63 (PCR) (Not Detect) Human Metapneumovir PCR (Not Detect) Influenza Type A (PCR) (Not Detect) Influenza Type B (PCR) (Not Detect) M. pneumoniae (PCR) (Not Detect) Parainfluenza 1 (PCR) (Not Detect) Parainfluenza 2 (PCR) (Not Detect) Parainfluenza 3 (PCR) (Not Detect) Parainfluenza 4 (PCR) (Not Detect) RSV (PCR) (Not Detect) Entero/Rhino (PCR) (Not Detect) 05/12/22 05/12/22 05/13/22 Range/Units 07:58 07:58 04:36 WBC (4.5-11.0) X10^3/uL RBC (4.5-5.9) X10^6/uL Hgb (13.5-17.5) g/dL Hct (41-53) % MCV (80-100) fL MCH (26-34) PG MCHC (30-36) % RDW (11.6-14.8) % Plt Count (150-400) X10^3/uL Neut % (Auto) (50-75) % Lymph % (Auto) (25-40) % [place] % (Auto) (3-14) % Eos % (Auto) (2-4) % Baso % (Auto) (0-2) % Neut # (Auto) (7952-3246) /uL Lymph # (Auto) (6456-3164) /uL [place] # (Auto) (0-900) /uL Eos # (Auto) (0-450) /uL Baso # (Auto) (0-100) /uL PT (10.1-12.7) SECONDS INR (0.9-1.3) APTT 54 H (26.4-36.2) SECONDS ABG pH (7.35-7.45) ABG pCO2 (35-45) mmHg ABG pO2 (80-100) mmHg ABG HCO3 (22-26) mmol/L ABG Total CO2 (21-31) mmol/L ABG O2 Saturation (95-100) % ABG Base Excess (-2-2) mmol/L FiO2 Sodium 134 L (137-145) mmol/L Potassium 4.0 (3.4-5.1) mmol/L Chloride 93 L (98-107) mmol/L Carbon Dioxide 39 H (22-32) mmol/L BUN 23 H (9-20) mg/dL Creatinine 0.60 L (0.66-1.25) mg/dL Estimated GFR > 60 (>60) mL/min BUN/Creatinine Ratio 38.3 H (6-22) Glucose 119 H (80-110) mg/dL Lactate (0.7-2.1) mmol/L Calcium 8.2 L (8.4-10.2) mg/dL Magnesium (1.6-2.3) mg/dL Total Bilirubin 0.6 (0.2-1.3) mg/dL AST 27 (17-59) IU/L ALT 18 (<50) IU/L Alkaline Phosphatase 111 (38-126) U/L Total Creatine Kinase (55-170) U/L CK-MB (CK-2) CK-MB (CK-2) Rel Index Troponin I (0.01-0.034) ng/mL C-Reactive Protein (<1.0) mg/dL NT-Pro-B Natriuret Pep 3550 H (<450) pg/mL Total Protein 5.7 L (6.3-8.2) g/dL Albumin 3.0 L (3.5-5.0) g/dL Globulin 2.7 (1.7-4.1) g/dL Albumin/Globulin Ratio 1.1 (1.0-2.8) Procalcitonin (<0.5) ng/mL Fluid Color Fluid Appearance Fluid RBC /uL Fld Tot Nucleated Cell /uL Fluid Polynuclear WBCs % Fluid Mononuclear WBCs % Fluid Eosinophils Fluid Other Cells % Body Fluid Clot Fluid Glucose mg/dL Fluid Total Protein g/dL Fluid LDH U/L Chlamy pneumoniae PCR (Not Detect) Adenovirus (PCR) (Not Detect) B. pertussis DNA (PCR) (Not Detecte) B.parapertussis DNA PCR (Not Detecte) Coronavirus OC43 (PCR) (Not Detect) Coronavirus HKU1 (PCR) (Not Detect) Coronavirus 229E (PCR) (Not Detect) SARS-CoV-2 (PCR) (Negative) Coronavirus NL63 (PCR) (Not Detect) Human Metapneumovir PCR (Not Detect) Influenza Type A (PCR) (Not Detect) Influenza Type B (PCR) (Not Detect) M. pneumoniae (PCR) (Not Detect) Parainfluenza 1 (PCR) (Not Detect) Parainfluenza 2 (PCR) (Not Detect) Parainfluenza 3 (PCR) (Not Detect) Parainfluenza 4 (PCR) (Not Detect) RSV (PCR) (Not Detect) Entero/Rhino (PCR) (Not Detect) 05/13/22 05/13/22 05/13/22 Range/Units 08:00 08:00 10:27 WBC 10.9 (4.5-11.0) X10^3/uL RBC 4.60 (4.5-5.9) X10^6/uL Hgb 13.9 (13.5-17.5) g/dL Hct 41.8 (41-53) % MCV 90.9 (80-100) fL MCH 30.3 (26-34) PG MCHC 33.3 (30-36) % RDW 14.6 (11.6-14.8) % Plt Count 194 (150-400) X10^3/uL Neut % (Auto) 78.1 H (50-75) % Lymph % (Auto) 10.0 L (25-40) % [place] % (Auto) 9.2 (3-14) % Eos % (Auto) 2.0 (2-4) % Baso % (Auto) 0.7 (0-2) % Neut # (Auto) 8500 H (7701-4709) /uL Lymph # (Auto) 1100 (7017-9371) /uL [place] # (Auto) 1000 H (0-900) /uL Eos # (Auto) 200 (0-450) /uL Baso # (Auto) 100 (0-100) /uL PT (10.1-12.7) SECONDS INR (0.9-1.3) APTT (26.4-36.2) SECONDS ABG pH (7.35-7.45) ABG pCO2 (35-45) mmHg ABG pO2 (80-100) mmHg ABG HCO3 (22-26) mmol/L ABG Total CO2 (21-31) mmol/L ABG O2 Saturation (95-100) % ABG Base Excess (-2-2) mmol/L FiO2 Sodium 132 L (137-145) mmol/L Potassium 4.1 (3.4-5.1) mmol/L Chloride 90 L (98-107) mmol/L Carbon Dioxide 41 H* (22-32) mmol/L BUN 17 (9-20) mg/dL Creatinine 0.67 (0.66-1.25) mg/dL Estimated GFR > 60 (>60) mL/min BUN/Creatinine Ratio 25.4 H (6-22) Glucose 113 H (80-110) mg/dL Lactate (0.7-2.1) mmol/L Calcium 8.3 L (8.4-10.2) mg/dL Magnesium (1.6-2.3) mg/dL Total Bilirubin 0.7 (0.2-1.3) mg/dL AST 26 (17-59) IU/L ALT 19 (<50) IU/L Alkaline Phosphatase 113 (38-126) U/L Total Creatine Kinase (55-170) U/L CK-MB (CK-2) CK-MB (CK-2) Rel Index Troponin I (0.01-0.034) ng/mL C-Reactive Protein (<1.0) mg/dL NT-Pro-B Natriuret Pep (<450) pg/mL Total Protein 5.5 L (6.3-8.2) g/dL Albumin 2.9 L (3.5-5.0) g/dL Globulin 2.6 (1.7-4.1) g/dL Albumin/Globulin Ratio 1.1 (1.0-2.8) Procalcitonin (<0.5) ng/mL Fluid Color Fluid Appearance Fluid RBC /uL Fld Tot Nucleated Cell /uL Fluid Polynuclear WBCs % Fluid Mononuclear WBCs % Fluid Eosinophils Fluid Other Cells % Body Fluid Clot Fluid Glucose mg/dL Fluid Total Protein g/dL Fluid LDH U/L Chlamy pneumoniae PCR Not detected (Not Detect) Adenovirus (PCR) Not detected (Not Detect) B. pertussis DNA (PCR) Not detected (Not Detecte) B.parapertussis DNA PCR Not detected (Not Detecte) Coronavirus OC43 (PCR) Not detected (Not Detect) Coronavirus HKU1 (PCR) Not detected (Not Detect) Coronavirus 229E (PCR) Not detected (Not Detect) SARS-CoV-2 (PCR) Not detected (Negative) Coronavirus NL63 (PCR) Not detected (Not Detect) Human Metapneumovir PCR Not detected (Not Detect) Influenza Type A (PCR) Not detected (Not Detect) Influenza Type B (PCR) Not detected (Not Detect) M. pneumoniae (PCR) Not detected (Not Detect) Parainfluenza 1 (PCR) Not detected (Not Detect) Parainfluenza 2 (PCR) Not detected (Not Detect) Parainfluenza 3 (PCR) Not detected (Not Detect) Parainfluenza 4 (PCR) Not detected (Not Detect) RSV (PCR) Not detected (Not Detect) Entero/Rhino (PCR) Not detected (Not Detect) 05/13/22 05/13/22 05/13/22 Range/Units 14:15 14:15 20:37 WBC (4.5-11.0) X10^3/uL RBC (4.5-5.9) X10^6/uL Hgb (13.5-17.5) g/dL Hct (41-53) % MCV (80-100) fL MCH (26-34) PG MCHC (30-36) % RDW (11.6-14.8) % Plt Count (150-400) X10^3/uL Neut % (Auto) (50-75) % Lymph % (Auto) (25-40) % [place] % (Auto) (3-14) % Eos % (Auto) (2-4) % Baso % (Auto) (0-2) % Neut # (Auto) (3683-3341) /uL Lymph # (Auto) (2498-4311) /uL [place] # (Auto) (0-900) /uL Eos # (Auto) (0-450) /uL Baso # (Auto) (0-100) /uL PT (10.1-12.7) SECONDS INR (0.9-1.3) APTT 48 H (26.4-36.2) SECONDS ABG pH (7.35-7.45) ABG pCO2 (35-45) mmHg ABG pO2 (80-100) mmHg ABG HCO3 (22-26) mmol/L ABG Total CO2 (21-31) mmol/L ABG O2 Saturation (95-100) % ABG Base Excess (-2-2) mmol/L FiO2 Sodium (137-145) mmol/L Potassium (3.4-5.1) mmol/L Chloride (98-107) mmol/L Carbon Dioxide (22-32) mmol/L BUN (9-20) mg/dL Creatinine (0.66-1.25) mg/dL Estimated GFR (>60) mL/min BUN/Creatinine Ratio (6-22) Glucose (80-110) mg/dL Lactate (0.7-2.1) mmol/L Calcium (8.4-10.2) mg/dL Magnesium (1.6-2.3) mg/dL Total Bilirubin (0.2-1.3) mg/dL AST (17-59) IU/L ALT (<50) IU/L Alkaline Phosphatase (38-126) U/L Total Creatine Kinase (55-170) U/L CK-MB (CK-2) CK-MB (CK-2) Rel Index Troponin I (0.01-0.034) ng/mL C-Reactive Protein (<1.0) mg/dL NT-Pro-B Natriuret Pep (<450) pg/mL Total Protein (6.3-8.2) g/dL Albumin (3.5-5.0) g/dL Globulin (1.7-4.1) g/dL Albumin/Globulin Ratio (1.0-2.8) Procalcitonin (<0.5) ng/mL Fluid Color Yellow Fluid Appearance Clear Fluid RBC 2536 /uL Fld Tot Nucleated Cell 567 /uL Fluid Polynuclear WBCs 2 % Fluid Mononuclear WBCs 97 % Fluid Eosinophils Not Reportable Fluid Other Cells 1 % Body Fluid Clot No clots present Fluid Glucose 114 mg/dL Fluid Total Protein 3.3 g/dL Fluid LDH 304 U/L Chlamy pneumoniae PCR (Not Detect) Adenovirus (PCR) (Not Detect) B. pertussis DNA (PCR) (Not Detecte) B.parapertussis DNA PCR (Not Detecte) Coronavirus OC43 (PCR) (Not Detect) Coronavirus HKU1 (PCR) (Not Detect) Coronavirus 229E (PCR) (Not Detect) SARS-CoV-2 (PCR) (Negative) Coronavirus NL63 (PCR) (Not Detect) Human Metapneumovir PCR (Not Detect) Influenza Type A (PCR) (Not Detect) Influenza Type B (PCR) (Not Detect) M. pneumoniae (PCR) (Not Detect) Parainfluenza 1 (PCR) (Not Detect) Parainfluenza 2 (PCR) (Not Detect) Parainfluenza 3 (PCR) (Not Detect) Parainfluenza 4 (PCR) (Not Detect) RSV (PCR) (Not Detect) Entero/Rhino (PCR) (Not Detect) Urine Dip Bedside Urine Glucose Negative Bedside Urine Bilirubin - Negative Urine Specific [place] 1.020 Bedside Urine Occult Blood - Negative Bedside Urine pH 5.5 Bedside Urine Protein - Negative Bedside Urine Urobilinogen - Negative Bedside Urine Nitrite - Negative Bedside Urine Leukocytes - Negative Esterase Imaging Data Echocardiogram: Radiologist's Impression: [address] [address] Echocardiography Report Signed Patient: Lennox Devine MR#: [id number] : 1940 Acct:[id number] Age/Sex: 82 / M Date of Service: 05/11/22 Loc: ED Accession Number: [id number] ?? Procedure: EC echo doppler complete Ordering Provider: Gail Novak MD ? [facility]? [facility]? +---------+ : ? :? [address] [place] [address] ? : ? : : ? :? [facility], [place] ? : ? : : ? :? [id number] ? : ? : : ? : ? Phone: [phone] ? : +---------[phone]? [phone]? +---------+ ? Echocardiogram Report + + :Name: LENNOX DEVINE? Study Date: 05/11/2022 ? Height: 72 in : :Hospital ? ? ? ReadingLocation: ? Weight: 195 lb: : ? Gender: Male ? BSA: 2.1 m2 ? : :: 1940 ? Age: 82 yrs? BP: 83/51 mmHg: :Reason For Study: CHEST PAIN ? : :Ordering Physician: SCARLET,? : :GAIL ? Performed By: Yolanda Connor ? : :Referring: GAIL NOVAK ? : + + Interpretation Summary Afib with RVR. HR is 124 bpm. ? Normal LV size; mild LVH; EF is 60-65%. ? Severe RV enlargement and moderately-severely reduced RV function. Severe RA enlargement. ? No significant valvular abnormalities. ? Mildlly dilated ascending oarta. ? Estimated PA systolic pressure is 83 mm Hg assuming RA pressure of 15 mm Hg ? Procedure: ? A two-dimensional transthoracic echocardiogram with color flow and Doppler was performed. The study quality was technically difficult. There is no prior echocardiogram noted for this patient. The patient was in atrial fibrillation with heart rates between 90-124 bpm during the exam. Left Ventricle: ? There is mild concentric left ventricular hypertrophy. The left ventricle is normal in size. The ejection fraction is estimated to be 60- 65%. The interventricular septum is flattened, consistent with a right ventricular pressure/volume condition. Diastolic function could not be accurately assessed due to atrial fibrillation. Right Ventricle: ? The right ventricle is severely dilated. Right ventricular systolic function is moderate to severely reduced. Atria: ? The left atrial size is normal. The right atrium is severely dilated. There is no Doppler evidence for an interatrial shunt. Mitral Valve: ? There is mild mitral annular calcification. The mitral valve leaflets appear mildly thickened, but open well. There is mild mitral regurgitation. Aortic Valve: ? The aortic valve is trileaflet. The aortic valve opens well. There is no aortic valve stenosis. No aortic regurgitation is present. Tricuspid Valve: ? The tricuspid valve is not well visualized, but is grossly normal. There is mild to moderate tricuspid regurgitation. The right ventricular systolic pressure is estimated to be at least 83 mmHg based on an estimated right atrial pressure of 15 mm Hg. There is severe pulmonary hypertension. Pulmonic Valve: ? The pulmonic valve is not well visualized. There is no pulmonic valvular regurgitation. Great Vessels: ? The aortic root is borderline dilated. The dimensions of the ascending aorta are normal. The IVC is dilated (diameter is greater than 2.1 cm) and it collapses less than 50% with a sniff. This suggests a high right atrial pressure of 15 mm Hg. Pericardium/ Pleura ? There is no pericardial effusion. There is no pleural effusion. ? MMode/2D Measurements & Calculations LVIDd: 4.3 cm ? LVOT diam: 2.5 cm LVIDs: 2.8 cm ? Ao root diam: 4.0 cm FS: 33.9 %? asc Aorta Diam: 3.5 cm EPSS: 1.3 cm IVSd: 1.4 cm LVPWd: 1.1 cm LV berger. diameter/BSA (cm/m^2): 2.0 LV sys. diameter/BSA (cm/m^2): 1.3 ? LA A2 area: 23.1 cm2? RA long axis: 5.3 cm LA A4 area: 18.4 cm2? RA area: 24.6 cm2 LA length (vol): 6.6 cm ? RA vol: 97.9 ml LA vol: 55.1 ml ? RA : 46.4 ml/m2 LA vol index: 26.1 ml/m2? IVC diam: 2.4 cm ? RVD1 (basal): 5.2 cm RVD2 (mid): 3.9 cm TAPSE: 1.1 cm ? Doppler Measurements & Calculations Ao V2 max: 89.8 cm/sec ? LVOT Max Chet: 71.9 cm/sec Ao V2 mean: 58.5 cm/sec? LV V1 max P.1 mmHg Ao max P.2 mmHg? LV V1 VTI: 12.3 cm Ao mean P.6 mmHg ? GAVIN(I,D): 4.3 cm2 Ao V2 VTI: 14.0 cm ? GAVIN(V,D): 3.9 cm2 ? sev ratio: 0.88 ? GAVIN indexed to BSA (cm^2/m^2): 2.0 ? MV E max chet: 66.4 cm/sec? TR max chet: 411.8 cm/sec MV A max chet: 2.0 cm/sec ? TR max P.8 mmHg MV E/A: 32.6 ? PA pr(Accel): 44.7 mmHg Med Peak E' Chet: 7.4 cm/sec E/E' med: 9.0 Lat Peak E' Chet: 15.3 cm/sec E/E' lat: 4.4 E/e' average: 6.7 MV dec time: 0.20 sec ? SV(LVOT): 59.8 ml ? Electronically signed by: Ligia Babin M.D. on Reading Physician:05/11/2022 05:12 PM <Hilaria Akins MD - Last Filed: 05/14/22 04:09> Lab Data Labs: Lab Results 05/10/22 05/10/22 05/10/22 Range/Units 19:27 19:35 19:35 WBC 9.3 (4.5-11.0) X10^3/uL RBC 4.61 (4.5-5.9) X10^6/uL Hgb 14.0 (13.5-17.5) g/dL Hct 41.9 (41-53) % MCV 90.9 (80-100) fL MCH 30.4 (26-34) PG MCHC 33.4 (30-36) % RDW 14.9 H (11.6-14.8) % Plt Count 202 (150-400) X10^3/uL Neut % (Auto) 73.3 (50-75) % Lymph % (Auto) 15.2 L (25-40) % [place] % (Auto) 8.6 (3-14) % Eos % (Auto) 2.0 (2-4) % Baso % (Auto) 0.9 (0-2) % Neut # (Auto) 6800 (7025-8695) /uL Lymph # (Auto) 1400 (9594-1361) /uL [place] # (Auto) 800 (0-900) /uL Eos # (Auto) 200 (0-450) /uL Baso # (Auto) 100 (0-100) /uL PT (10.1-12.7) SECONDS INR (0.9-1.3) APTT (26.4-36.2) SECONDS ABG pH (7.35-7.45) ABG pCO2 (35-45) mmHg ABG pO2 (80-100) mmHg ABG HCO3 (22-26) mmol/L ABG Total CO2 (21-31) mmol/L ABG O2 Saturation (95-100) % ABG Base Excess (-2-2) mmol/L FiO2 Sodium 136 L (137-145) mmol/L Potassium 4.2 (3.4-5.1) mmol/L Chloride 95 L (98-107) mmol/L Carbon Dioxide 39 H (22-32) mmol/L BUN 30 H (9-20) mg/dL Creatinine 0.88 (0.66-1.25) mg/dL Estimated GFR > 60 (>60) mL/min BUN/Creatinine Ratio 34.1 H (6-22) Glucose 107 (80-110) mg/dL Lactate (0.7-2.1) mmol/L Calcium 8.7 (8.4-10.2) mg/dL Magnesium 1.9 (1.6-2.3) mg/dL Total Bilirubin 0.6 (0.2-1.3) mg/dL AST 32 (17-59) IU/L ALT 20 (<50) IU/L Alkaline Phosphatase 128 H (38-126) U/L Total Creatine Kinase 22 L (55-170) U/L CK-MB (CK-2) TNP CK-MB (CK-2) Rel Index TNP Troponin I < 0.012 (0.01-0.034) ng/mL C-Reactive Protein 2.2 H (<1.0) mg/dL NT-Pro-B Natriuret Pep 2560 H (<450) pg/mL Total Protein 6.2 L (6.3-8.2) g/dL Albumin 3.3 L (3.5-5.0) g/dL Globulin 2.9 (1.7-4.1) g/dL Albumin/Globulin Ratio 1.1 (1.0-2.8) Procalcitonin 0.05 (<0.5) ng/mL Fluid Color Fluid Appearance Fluid RBC /uL Fld Tot Nucleated Cell /uL Fluid Polynuclear WBCs % Fluid Mononuclear WBCs % Fluid Eosinophils Fluid Other Cells % Body Fluid Clot Fluid Glucose mg/dL Fluid Total Protein g/dL Fluid LDH U/L Chlamy pneumoniae PCR (Not Detect) Adenovirus (PCR) (Not Detect) B. pertussis DNA (PCR) (Not Detecte) B.parapertussis DNA PCR (Not Detecte) Coronavirus OC43 (PCR) (Not Detect) Coronavirus HKU1 (PCR) (Not Detect) Coronavirus 229E (PCR) (Not Detect) SARS-CoV-2 (PCR) (Negative) Coronavirus NL63 (PCR) (Not Detect) Human Metapneumovir PCR (Not Detect) Influenza Type A (PCR) (Not Detect) Influenza Type B (PCR) (Not Detect) M. pneumoniae (PCR) (Not Detect) Parainfluenza 1 (PCR) (Not Detect) Parainfluenza 2 (PCR) (Not Detect) Parainfluenza 3 (PCR) (Not Detect) Parainfluenza 4 (PCR) (Not Detect) RSV (PCR) (Not Detect) Entero/Rhino (PCR) (Not Detect) 05/10/22 05/10/22 05/10/22 Range/Units 19:35 19:35 19:35 WBC (4.5-11.0) X10^3/uL RBC (4.5-5.9) X10^6/uL Hgb (13.5-17.5) g/dL Hct (41-53) % MCV (80-100) fL MCH (26-34) PG MCHC (30-36) % RDW (11.6-14.8) % Plt Count (150-400) X10^3/uL Neut % (Auto) (50-75) % Lymph % (Auto) (25-40) % [place] % (Auto) (3-14) % Eos % (Auto) (2-4) % Baso % (Auto) (0-2) % Neut # (Auto) (1363-4994) /uL Lymph # (Auto) (4219-9188) /uL [place] # (Auto) (0-900) /uL Eos # (Auto) (0-450) /uL Baso # (Auto) (0-100) /uL PT 13.7 H (10.1-12.7) SECONDS INR 1.2 (0.9-1.3) APTT (26.4-36.2) SECONDS ABG pH (7.35-7.45) ABG pCO2 (35-45) mmHg ABG pO2 (80-100) mmHg ABG HCO3 (22-26) mmol/L ABG Total CO2 (21-31) mmol/L ABG O2 Saturation (95-100) % ABG Base Excess (-2-2) mmol/L FiO2 Sodium (137-145) mmol/L Potassium (3.4-5.1) mmol/L Chloride (98-107) mmol/L Carbon Dioxide (22-32) mmol/L BUN (9-20) mg/dL Creatinine (0.66-1.25) mg/dL Estimated GFR (>60) mL/min BUN/Creatinine Ratio (6-22) Glucose (80-110) mg/dL Lactate 1.1 (0.7-2.1) mmol/L Calcium (8.4-10.2) mg/dL Magnesium (1.6-2.3) mg/dL Total Bilirubin (0.2-1.3) mg/dL AST (17-59) IU/L ALT (<50) IU/L Alkaline Phosphatase (38-126) U/L Total Creatine Kinase (55-170) U/L CK-MB (CK-2) CK-MB (CK-2) Rel Index Troponin I (0.01-0.034) ng/mL C-Reactive Protein (<1.0) mg/dL NT-Pro-B Natriuret Pep (<450) pg/mL Total Protein (6.3-8.2) g/dL Albumin (3.5-5.0) g/dL Globulin (1.7-4.1) g/dL Albumin/Globulin Ratio (1.0-2.8) Procalcitonin (<0.5) ng/mL Fluid Color Fluid Appearance Fluid RBC /uL Fld Tot Nucleated Cell /uL Fluid Polynuclear WBCs % Fluid Mononuclear WBCs % Fluid Eosinophils Fluid Other Cells % Body Fluid Clot Fluid Glucose mg/dL Fluid Total Protein g/dL Fluid LDH U/L Chlamy pneumoniae PCR (Not Detect) Adenovirus (PCR) (Not Detect) B. pertussis DNA (PCR) (Not Detecte) B.parapertussis DNA PCR (Not Detecte) Coronavirus OC43 (PCR) (Not Detect) Coronavirus HKU1 (PCR) (Not Detect) Coronavirus 229E (PCR) (Not Detect) SARS-CoV-2 (PCR) Negative (Negative) Coronavirus NL63 (PCR) (Not Detect) Human Metapneumovir PCR (Not Detect) Influenza Type A (PCR) (Not Detect) Influenza Type B (PCR) (Not Detect) M. pneumoniae (PCR) (Not Detect) Parainfluenza 1 (PCR) (Not Detect) Parainfluenza 2 (PCR) (Not Detect) Parainfluenza 3 (PCR) (Not Detect) Parainfluenza 4 (PCR) (Not Detect) RSV (PCR) (Not Detect) Entero/Rhino (PCR) (Not Detect) 05/10/22 05/10/22 05/11/22 Range/Units 19:35 19:47 03:35 WBC (4.5-11.0) X10^3/uL RBC (4.5-5.9) X10^6/uL Hgb (13.5-17.5) g/dL Hct (41-53) % MCV (80-100) fL MCH (26-34) PG MCHC (30-36) % RDW (11.6-14.8) % Plt Count (150-400) X10^3/uL Neut % (Auto) (50-75) % Lymph % (Auto) (25-40) % [place] % (Auto) (3-14) % Eos % (Auto) (2-4) % Baso % (Auto) (0-2) % Neut # (Auto) (5065-0212) /uL Lymph # (Auto) (0766-4507) /uL [place] # (Auto) (0-900) /uL Eos # (Auto) (0-450) /uL Baso # (Auto) (0-100) /uL PT (10.1-12.7) SECONDS INR (0.9-1.3) APTT 33 186 H* D (26.4-36.2) SECONDS ABG pH 7.35 (7.35-7.45) ABG pCO2 68.2 H* (35-45) mmHg ABG pO2 65 L (80-100) mmHg ABG HCO3 38 H (22-26) mmol/L ABG Total CO2 40 H (21-31) mmol/L ABG O2 Saturation 90 L (95-100) % ABG Base Excess 12.0 H (-2-2) mmol/L FiO2 32 Sodium (137-145) mmol/L Potassium (3.4-5.1) mmol/L Chloride (98-107) mmol/L Carbon Dioxide (22-32) mmol/L BUN (9-20) mg/dL Creatinine (0.66-1.25) mg/dL Estimated GFR (>60) mL/min BUN/Creatinine Ratio (6-22) Glucose (80-110) mg/dL Lactate (0.7-2.1) mmol/L Calcium (8.4-10.2) mg/dL Magnesium (1.6-2.3) mg/dL Total Bilirubin (0.2-1.3) mg/dL AST (17-59) IU/L ALT (<50) IU/L Alkaline Phosphatase (38-126) U/L Total Creatine Kinase (55-170) U/L CK-MB (CK-2) CK-MB (CK-2) Rel Index Troponin I (0.01-0.034) ng/mL C-Reactive Protein (<1.0) mg/dL NT-Pro-B Natriuret Pep (<450) pg/mL Total Protein (6.3-8.2) g/dL Albumin (3.5-5.0) g/dL Globulin (1.7-4.1) g/dL Albumin/Globulin Ratio (1.0-2.8) Procalcitonin (<0.5) ng/mL Fluid Color Fluid Appearance Fluid RBC /uL Fld Tot Nucleated Cell /uL Fluid Polynuclear WBCs % Fluid Mononuclear WBCs % Fluid Eosinophils Fluid Other Cells % Body Fluid Clot Fluid Glucose mg/dL Fluid Total Protein g/dL Fluid LDH U/L Chlamy pneumoniae PCR (Not Detect) Adenovirus (PCR) (Not Detect) B. pertussis DNA (PCR) (Not Detecte) B.parapertussis DNA PCR (Not Detecte) Coronavirus OC43 (PCR) (Not Detect) Coronavirus HKU1 (PCR) (Not Detect) Coronavirus 229E (PCR) (Not Detect) SARS-CoV-2 (PCR) (Negative) Coronavirus NL63 (PCR) (Not Detect) Human Metapneumovir PCR (Not Detect) Influenza Type A (PCR) (Not Detect) Influenza Type B (PCR) (Not Detect) M. pneumoniae (PCR) (Not Detect) Parainfluenza 1 (PCR) (Not Detect) Parainfluenza 2 (PCR) (Not Detect) Parainfluenza 3 (PCR) (Not Detect) Parainfluenza 4 (PCR) (Not Detect) RSV (PCR) (Not Detect) Entero/Rhino (PCR) (Not Detect) 05/11/22 05/11/22 05/11/22 Range/Units 03:35 03:35 11:59 WBC 8.5 (4.5-11.0) X10^3/uL RBC 4.97 (4.5-5.9) X10^6/uL Hgb 15.2 (13.5-17.5) g/dL Hct 45.4 (41-53) % MCV 91.5 (80-100) fL MCH 30.6 (26-34) PG MCHC 33.4 (30-36) % RDW 14.6 (11.6-14.8) % Plt Count 175 (150-400) X10^3/uL Neut % (Auto) 76.2 H (50-75) % Lymph % (Auto) 10.6 L (25-40) % [place] % (Auto) 10.7 (3-14) % Eos % (Auto) 1.9 L (2-4) % Baso % (Auto) 0.6 (0-2) % Neut # (Auto) 6500 (7997-1730) /uL Lymph # (Auto) 900 L (3652-8284) /uL [place] # (Auto) 900 (0-900) /uL Eos # (Auto) 200 (0-450) /uL Baso # (Auto) 0 (0-100) /uL PT (10.1-12.7) SECONDS INR (0.9-1.3) APTT 58 H D (26.4-36.2) SECONDS ABG pH (7.35-7.45) ABG pCO2 (35-45) mmHg ABG pO2 (80-100) mmHg ABG HCO3 (22-26) mmol/L ABG Total CO2 (21-31) mmol/L ABG O2 Saturation (95-100) % ABG Base Excess (-2-2) mmol/L FiO2 Sodium 139 (137-145) mmol/L Potassium 4.5 (3.4-5.1) mmol/L Chloride 92 L (98-107) mmol/L Carbon Dioxide 43 H* (22-32) mmol/L BUN 27 H (9-20) mg/dL Creatinine 0.94 (0.66-1.25) mg/dL Estimated GFR > 60 (>60) mL/min BUN/Creatinine Ratio 28.7 H (6-22) Glucose 118 H (80-110) mg/dL Lactate (0.7-2.1) mmol/L Calcium 8.6 (8.4-10.2) mg/dL Magnesium (1.6-2.3) mg/dL Total Bilirubin 0.9 (0.2-1.3) mg/dL AST 33 (17-59) IU/L ALT 21 (<50) IU/L Alkaline Phosphatase 128 H (38-126) U/L Total Creatine Kinase 22 L (55-170) U/L CK-MB (CK-2) TNP CK-MB (CK-2) Rel Index TNP Troponin I 0.016 (0.01-0.034) ng/mL C-Reactive Protein (<1.0) mg/dL NT-Pro-B Natriuret Pep 2730 H (<450) pg/mL Total Protein 6.6 (6.3-8.2) g/dL Albumin 3.5 (3.5-5.0) g/dL Globulin 3.1 (1.7-4.1) g/dL Albumin/Globulin Ratio 1.1 (1.0-2.8) Procalcitonin (<0.5) ng/mL Fluid Color Fluid Appearance Fluid RBC /uL Fld Tot Nucleated Cell /uL Fluid Polynuclear WBCs % Fluid Mononuclear WBCs % Fluid Eosinophils Fluid Other Cells % Body Fluid Clot Fluid Glucose mg/dL Fluid Total Protein g/dL Fluid LDH U/L Chlamy pneumoniae PCR (Not Detect) Adenovirus (PCR) (Not Detect) B. pertussis DNA (PCR) (Not Detecte) B.parapertussis DNA PCR (Not Detecte) Coronavirus OC43 (PCR) (Not Detect) Coronavirus HKU1 (PCR) (Not Detect) Coronavirus 229E (PCR) (Not Detect) SARS-CoV-2 (PCR) (Negative) Coronavirus NL63 (PCR) (Not Detect) Human Metapneumovir PCR (Not Detect) Influenza Type A (PCR) (Not Detect) Influenza Type B (PCR) (Not Detect) M. pneumoniae (PCR) (Not Detect) Parainfluenza 1 (PCR) (Not Detect) Parainfluenza 2 (PCR) (Not Detect) Parainfluenza 3 (PCR) (Not Detect) Parainfluenza 4 (PCR) (Not Detect) RSV (PCR) (Not Detect) Entero/Rhino (PCR) (Not Detect) 05/11/22 05/11/22 05/11/22 Range/Units 11:59 11:59 11:59 WBC (4.5-11.0) X10^3/uL RBC (4.5-5.9) X10^6/uL Hgb (13.5-17.5) g/dL Hct (41-53) % MCV (80-100) fL MCH (26-34) PG MCHC (30-36) % RDW (11.6-14.8) % Plt Count (150-400) X10^3/uL Neut % (Auto) (50-75) % Lymph % (Auto) (25-40) % [place] % (Auto) (3-14) % Eos % (Auto) (2-4) % Baso % (Auto) (0-2) % Neut # (Auto) (8102-1680) /uL Lymph # (Auto) (7117-3615) /uL [place] # (Auto) (0-900) /uL Eos # (Auto) (0-450) /uL Baso # (Auto) (0-100) /uL PT 14.5 H (10.1-12.7) SECONDS INR 1.3 (0.9-1.3) APTT Cancelled (26.4-36.2) SECONDS ABG pH (7.35-7.45) ABG pCO2 (35-45) mmHg ABG pO2 (80-100) mmHg ABG HCO3 (22-26) mmol/L ABG Total CO2 (21-31) mmol/L ABG O2 Saturation (95-100) % ABG Base Excess (-2-2) mmol/L FiO2 Sodium (137-145) mmol/L Potassium (3.4-5.1) mmol/L Chloride (98-107) mmol/L Carbon Dioxide (22-32) mmol/L BUN (9-20) mg/dL Creatinine (0.66-1.25) mg/dL Estimated GFR (>60) mL/min BUN/Creatinine Ratio (6-22) Glucose (80-110) mg/dL Lactate (0.7-2.1) mmol/L Calcium (8.4-10.2) mg/dL Magnesium (1.6-2.3) mg/dL Total Bilirubin (0.2-1.3) mg/dL AST (17-59) IU/L ALT (<50) IU/L Alkaline Phosphatase (38-126) U/L Total Creatine Kinase (55-170) U/L CK-MB (CK-2) CK-MB (CK-2) Rel Index Troponin I 0.013 (0.01-0.034) ng/mL C-Reactive Protein (<1.0) mg/dL NT-Pro-B Natriuret Pep 4630 H (<450) pg/mL Total Protein (6.3-8.2) g/dL Albumin (3.5-5.0) g/dL Globulin (1.7-4.1) g/dL Albumin/Globulin Ratio (1.0-2.8) Procalcitonin (<0.5) ng/mL Fluid Color Fluid Appearance Fluid RBC /uL Fld Tot Nucleated Cell /uL Fluid Polynuclear WBCs % Fluid Mononuclear WBCs % Fluid Eosinophils Fluid Other Cells % Body Fluid Clot Fluid Glucose mg/dL Fluid Total Protein g/dL Fluid LDH U/L Chlamy pneumoniae PCR (Not Detect) Adenovirus (PCR) (Not Detect) B. pertussis DNA (PCR) (Not Detecte) B.parapertussis DNA PCR (Not Detecte) Coronavirus OC43 (PCR) (Not Detect) Coronavirus HKU1 (PCR) (Not Detect) Coronavirus 229E (PCR) (Not Detect) SARS-CoV-2 (PCR) (Negative) Coronavirus NL63 (PCR) (Not Detect) Human Metapneumovir PCR (Not Detect) Influenza Type A (PCR) (Not Detect) Influenza Type B (PCR) (Not Detect) M. pneumoniae (PCR) (Not Detect) Parainfluenza 1 (PCR) (Not Detect) Parainfluenza 2 (PCR) (Not Detect) Parainfluenza 3 (PCR) (Not Detect) Parainfluenza 4 (PCR) (Not Detect) RSV (PCR) (Not Detect) Entero/Rhino (PCR) (Not Detect) 05/11/22 05/12/22 05/12/22 Range/Units 19:14 04:30 07:58 WBC 10.1 (4.5-11.0) X10^3/uL RBC 4.65 (4.5-5.9) X10^6/uL Hgb 14.0 (13.5-17.5) g/dL Hct 42.2 (41-53) % MCV 90.7 (80-100) fL MCH 30.1 (26-34) PG MCHC 33.2 (30-36) % RDW 14.8 (11.6-14.8) % Plt Count 209 (150-400) X10^3/uL Neut % (Auto) 78.0 H (50-75) % Lymph % (Auto) 11.5 L (25-40) % [place] % (Auto) 8.0 (3-14) % Eos % (Auto) 1.8 L (2-4) % Baso % (Auto) 0.7 (0-2) % Neut # (Auto) 7900 H (8780-9437) /uL Lymph # (Auto) 1200 (8276-0671) /uL [place] # (Auto) 800 (0-900) /uL Eos # (Auto) 200 (0-450) /uL Baso # (Auto) 100 (0-100) /uL PT (10.1-12.7) SECONDS INR (0.9-1.3) APTT 76 H* D 60 H D (26.4-36.2) SECONDS ABG pH (7.35-7.45) ABG pCO2 (35-45) mmHg ABG pO2 (80-100) mmHg ABG HCO3 (22-26) mmol/L ABG Total CO2 (21-31) mmol/L ABG O2 Saturation (95-100) % ABG Base Excess (-2-2) mmol/L FiO2 Sodium (137-145) mmol/L Potassium (3.4-5.1) mmol/L Chloride (98-107) mmol/L Carbon Dioxide (22-32) mmol/L BUN (9-20) mg/dL Creatinine (0.66-1.25) mg/dL Estimated GFR (>60) mL/min BUN/Creatinine Ratio (6-22) Glucose (80-110) mg/dL Lactate (0.7-2.1) mmol/L Calcium (8.4-10.2) mg/dL Magnesium (1.6-2.3) mg/dL Total Bilirubin (0.2-1.3) mg/dL AST (17-59) IU/L ALT (<50) IU/L Alkaline Phosphatase (38-126) U/L Total Creatine Kinase (55-170) U/L CK-MB (CK-2) CK-MB (CK-2) Rel Index Troponin I (0.01-0.034) ng/mL C-Reactive Protein (<1.0) mg/dL NT-Pro-B Natriuret Pep (<450) pg/mL Total Protein (6.3-8.2) g/dL Albumin (3.5-5.0) g/dL Globulin (1.7-4.1) g/dL Albumin/Globulin Ratio (1.0-2.8) Procalcitonin (<0.5) ng/mL Fluid Color Fluid Appearance Fluid RBC /uL Fld Tot Nucleated Cell /uL Fluid Polynuclear WBCs % Fluid Mononuclear WBCs % Fluid Eosinophils Fluid Other Cells % Body Fluid Clot Fluid Glucose mg/dL Fluid Total Protein g/dL Fluid LDH U/L Chlamy pneumoniae PCR (Not Detect) Adenovirus (PCR) (Not Detect) B. pertussis DNA (PCR) (Not Detecte) B.parapertussis DNA PCR (Not Detecte) Coronavirus OC43 (PCR) (Not Detect) Coronavirus HKU1 (PCR) (Not Detect) Coronavirus 229E (PCR) (Not Detect) SARS-CoV-2 (PCR) (Negative) Coronavirus NL63 (PCR) (Not Detect) Human Metapneumovir PCR (Not Detect) Influenza Type A (PCR) (Not Detect) Influenza Type B (PCR) (Not Detect) M. pneumoniae (PCR) (Not Detect) Parainfluenza 1 (PCR) (Not Detect) Parainfluenza 2 (PCR) (Not Detect) Parainfluenza 3 (PCR) (Not Detect) Parainfluenza 4 (PCR) (Not Detect) RSV (PCR) (Not Detect) Entero/Rhino (PCR) (Not Detect) 05/12/22 05/12/22 05/13/22 Range/Units 07:58 07:58 04:36 WBC (4.5-11.0) X10^3/uL RBC (4.5-5.9) X10^6/uL Hgb (13.5-17.5) g/dL Hct (41-53) % MCV (80-100) fL MCH (26-34) PG MCHC (30-36) % RDW (11.6-14.8) % Plt Count (150-400) X10^3/uL Neut % (Auto) (50-75) % Lymph % (Auto) (25-40) % [place] % (Auto) (3-14) % Eos % (Auto) (2-4) % Baso % (Auto) (0-2) % Neut # (Auto) (0810-5869) /uL Lymph # (Auto) (4520-6751) /uL [place] # (Auto) (0-900) /uL Eos # (Auto) (0-450) /uL Baso # (Auto) (0-100) /uL PT (10.1-12.7) SECONDS INR (0.9-1.3) APTT 54 H (26.4-36.2) SECONDS ABG pH (7.35-7.45) ABG pCO2 (35-45) mmHg ABG pO2 (80-100) mmHg ABG HCO3 (22-26) mmol/L ABG Total CO2 (21-31) mmol/L ABG O2 Saturation (95-100) % ABG Base Excess (-2-2) mmol/L FiO2 Sodium 134 L (137-145) mmol/L Potassium 4.0 (3.4-5.1) mmol/L Chloride 93 L (98-107) mmol/L Carbon Dioxide 39 H (22-32) mmol/L BUN 23 H (9-20) mg/dL Creatinine 0.60 L (0.66-1.25) mg/dL Estimated GFR > 60 (>60) mL/min BUN/Creatinine Ratio 38.3 H (6-22) Glucose 119 H (80-110) mg/dL Lactate (0.7-2.1) mmol/L Calcium 8.2 L (8.4-10.2) mg/dL Magnesium (1.6-2.3) mg/dL Total Bilirubin 0.6 (0.2-1.3) mg/dL AST 27 (17-59) IU/L ALT 18 (<50) IU/L Alkaline Phosphatase 111 (38-126) U/L Total Creatine Kinase (55-170) U/L CK-MB (CK-2) CK-MB (CK-2) Rel Index Troponin I (0.01-0.034) ng/mL C-Reactive Protein (<1.0) mg/dL NT-Pro-B Natriuret Pep 3550 H (<450) pg/mL Total Protein 5.7 L (6.3-8.2) g/dL Albumin 3.0 L (3.5-5.0) g/dL Globulin 2.7 (1.7-4.1) g/dL Albumin/Globulin Ratio 1.1 (1.0-2.8) Procalcitonin (<0.5) ng/mL Fluid Color Fluid Appearance Fluid RBC /uL Fld Tot Nucleated Cell /uL Fluid Polynuclear WBCs % Fluid Mononuclear WBCs % Fluid Eosinophils Fluid Other Cells % Body Fluid Clot Fluid Glucose mg/dL Fluid Total Protein g/dL Fluid LDH U/L Chlamy pneumoniae PCR (Not Detect) Adenovirus (PCR) (Not Detect) B. pertussis DNA (PCR) (Not Detecte) B.parapertussis DNA PCR (Not Detecte) Coronavirus OC43 (PCR) (Not Detect) Coronavirus HKU1 (PCR) (Not Detect) Coronavirus 229E (PCR) (Not Detect) SARS-CoV-2 (PCR) (Negative) Coronavirus NL63 (PCR) (Not Detect) Human Metapneumovir PCR (Not Detect) Influenza Type A (PCR) (Not Detect) Influenza Type B (PCR) (Not Detect) M. pneumoniae (PCR) (Not Detect) Parainfluenza 1 (PCR) (Not Detect) Parainfluenza 2 (PCR) (Not Detect) Parainfluenza 3 (PCR) (Not Detect) Parainfluenza 4 (PCR) (Not Detect) RSV (PCR) (Not Detect) Entero/Rhino (PCR) (Not Detect) 05/13/22 05/13/22 05/13/22 Range/Units 08:00 08:00 10:27 WBC 10.9 (4.5-11.0) X10^3/uL RBC 4.60 (4.5-5.9) X10^6/uL Hgb 13.9 (13.5-17.5) g/dL Hct 41.8 (41-53) % MCV 90.9 (80-100) fL MCH 30.3 (26-34) PG MCHC 33.3 (30-36) % RDW 14.6 (11.6-14.8) % Plt Count 194 (150-400) X10^3/uL Neut % (Auto) 78.1 H (50-75) % Lymph % (Auto) 10.0 L (25-40) % [place] % (Auto) 9.2 (3-14) % Eos % (Auto) 2.0 (2-4) % Baso % (Auto) 0.7 (0-2) % Neut # (Auto) 8500 H (4108-9055) /uL Lymph # (Auto) 1100 (2709-1713) /uL [place] # (Auto) 1000 H (0-900) /uL Eos # (Auto) 200 (0-450) /uL Baso # (Auto) 100 (0-100) /uL PT (10.1-12.7) SECONDS INR (0.9-1.3) APTT (26.4-36.2) SECONDS ABG pH (7.35-7.45) ABG pCO2 (35-45) mmHg ABG pO2 (80-100) mmHg ABG HCO3 (22-26) mmol/L ABG Total CO2 (21-31) mmol/L ABG O2 Saturation (95-100) % ABG Base Excess (-2-2) mmol/L FiO2 Sodium 132 L (137-145) mmol/L Potassium 4.1 (3.4-5.1) mmol/L Chloride 90 L (98-107) mmol/L Carbon Dioxide 41 H* (22-32) mmol/L BUN 17 (9-20) mg/dL Creatinine 0.67 (0.66-1.25) mg/dL Estimated GFR > 60 (>60) mL/min BUN/Creatinine Ratio 25.4 H (6-22) Glucose 113 H (80-110) mg/dL Lactate (0.7-2.1) mmol/L Calcium 8.3 L (8.4-10.2) mg/dL Magnesium (1.6-2.3) mg/dL Total Bilirubin 0.7 (0.2-1.3) mg/dL AST 26 (17-59) IU/L ALT 19 (<50) IU/L Alkaline Phosphatase 113 (38-126) U/L Total Creatine Kinase (55-170) U/L CK-MB (CK-2) CK-MB (CK-2) Rel Index Troponin I (0.01-0.034) ng/mL C-Reactive Protein (<1.0) mg/dL NT-Pro-B Natriuret Pep (<450) pg/mL Total Protein 5.5 L (6.3-8.2) g/dL Albumin 2.9 L (3.5-5.0) g/dL Globulin 2.6 (1.7-4.1) g/dL Albumin/Globulin Ratio 1.1 (1.0-2.8) Procalcitonin (<0.5) ng/mL Fluid Color Fluid Appearance Fluid RBC /uL Fld Tot Nucleated Cell /uL Fluid Polynuclear WBCs % Fluid Mononuclear WBCs % Fluid Eosinophils Fluid Other Cells % Body Fluid Clot Fluid Glucose mg/dL Fluid Total Protein g/dL Fluid LDH U/L Chlamy pneumoniae PCR Not detected (Not Detect) Adenovirus (PCR) Not detected (Not Detect) B. pertussis DNA (PCR) Not detected (Not Detecte) B.parapertussis DNA PCR Not detected (Not Detecte) Coronavirus OC43 (PCR) Not detected (Not Detect) Coronavirus HKU1 (PCR) Not detected (Not Detect) Coronavirus 229E (PCR) Not detected (Not Detect) SARS-CoV-2 (PCR) Not detected (Negative) Coronavirus NL63 (PCR) Not detected (Not Detect) Human Metapneumovir PCR Not detected (Not Detect) Influenza Type A (PCR) Not detected (Not Detect) Influenza Type B (PCR) Not detected (Not Detect) M. pneumoniae (PCR) Not detected (Not Detect) Parainfluenza 1 (PCR) Not detected (Not Detect) Parainfluenza 2 (PCR) Not detected (Not Detect) Parainfluenza 3 (PCR) Not detected (Not Detect) Parainfluenza 4 (PCR) Not detected (Not Detect) RSV (PCR) Not detected (Not Detect) Entero/Rhino (PCR) Not detected (Not Detect) 05/13/22 05/13/22 05/13/22 Range/Units 14:15 14:15 20:37 WBC (4.5-11.0) X10^3/uL RBC (4.5-5.9) X10^6/uL Hgb (13.5-17.5) g/dL Hct (41-53) % MCV (80-100) fL MCH (26-34) PG MCHC (30-36) % RDW (11.6-14.8) % Plt Count (150-400) X10^3/uL Neut % (Auto) (50-75) % Lymph % (Auto) (25-40) % [place] % (Auto) (3-14) % Eos % (Auto) (2-4) % Baso % (Auto) (0-2) % Neut # (Auto) (3827-5082) /uL Lymph # (Auto) (0357-1564) /uL [place] # (Auto) (0-900) /uL Eos # (Auto) (0-450) /uL Baso # (Auto) (0-100) /uL PT (10.1-12.7) SECONDS INR (0.9-1.3) APTT 48 H (26.4-36.2) SECONDS ABG pH (7.35-7.45) ABG pCO2 (35-45) mmHg ABG pO2 (80-100) mmHg ABG HCO3 (22-26) mmol/L ABG Total CO2 (21-31) mmol/L ABG O2 Saturation (95-100) % ABG Base Excess (-2-2) mmol/L FiO2 Sodium (137-145) mmol/L Potassium (3.4-5.1) mmol/L Chloride (98-107) mmol/L Carbon Dioxide (22-32) mmol/L BUN (9-20) mg/dL Creatinine (0.66-1.25) mg/dL Estimated GFR (>60) mL/min BUN/Creatinine Ratio (6-22) Glucose (80-110) mg/dL Lactate (0.7-2.1) mmol/L Calcium (8.4-10.2) mg/dL Magnesium (1.6-2.3) mg/dL Total Bilirubin (0.2-1.3) mg/dL AST (17-59) IU/L ALT (<50) IU/L Alkaline Phosphatase (38-126) U/L Total Creatine Kinase (55-170) U/L CK-MB (CK-2) CK-MB (CK-2) Rel Index Troponin I (0.01-0.034) ng/mL C-Reactive Protein (<1.0) mg/dL NT-Pro-B Natriuret Pep (<450) pg/mL Total Protein (6.3-8.2) g/dL Albumin (3.5-5.0) g/dL Globulin (1.7-4.1) g/dL Albumin/Globulin Ratio (1.0-2.8) Procalcitonin (<0.5) ng/mL Fluid Color Yellow Fluid Appearance Clear Fluid RBC 2536 /uL Fld Tot Nucleated Cell 567 /uL Fluid Polynuclear WBCs 2 % Fluid Mononuclear WBCs 97 % Fluid Eosinophils Not Reportable Fluid Other Cells 1 % Body Fluid Clot No clots present Fluid Glucose 114 mg/dL Fluid Total Protein 3.3 g/dL Fluid LDH 304 U/L Chlamy pneumoniae PCR (Not Detect) Adenovirus (PCR) (Not Detect) B. pertussis DNA (PCR) (Not Detecte) B.parapertussis DNA PCR (Not Detecte) Coronavirus OC43 (PCR) (Not Detect) Coronavirus HKU1 (PCR) (Not Detect) Coronavirus 229E (PCR) (Not Detect) SARS-CoV-2 (PCR) (Negative) Coronavirus NL63 (PCR) (Not Detect) Human Metapneumovir PCR (Not Detect) Influenza Type A (PCR) (Not Detect) Influenza Type B (PCR) (Not Detect) M. pneumoniae (PCR) (Not Detect) Parainfluenza 1 (PCR) (Not Detect) Parainfluenza 2 (PCR) (Not Detect) Parainfluenza 3 (PCR) (Not Detect) Parainfluenza 4 (PCR) (Not Detect) RSV (PCR) (Not Detect) Entero/Rhino (PCR) (Not Detect) Urine Dip Bedside Urine Glucose Negative Bedside Urine Bilirubin - Negative Urine Specific [place] 1.020 Bedside Urine Occult Blood - Negative Bedside Urine pH 5.5 Bedside Urine Protein - Negative Bedside Urine Urobilinogen - Negative Bedside Urine Nitrite - Negative Bedside Urine Leukocytes - Negative Esterase ECG Data Interpretation: 05/10/2022 19:38 Sinus rhythm with marked arrhythmia Rate of [address] T wave abnormality Incomplete right bundle-branch block 05/11 early am hours, converted to A fib with RVR 05/12/22 1:03am Sinus bradycardia with marked sinus arrhythmia. Rate of 57 Incomplete right bundle-branch block Right ventricular hypertrophy ST T wave abnormality inferiorly, more notable than on initial presentation MDM Narrative Medical decision making narrative: 82-year-old male with extensive medical history presents with a chief complaint of worsening shortness of breath over at least the past 24 hours or so. At baseline he uses 2 L of oxygen but has had to increase to 4 L and states that minimal exertion create significant shortness of breath. He denies any change in medications and states that he has been compliant with all meds. His workup demonstrates right-sided pulmonary emboli with possible evidence of radiographic right heart strain along with a large loculated effusion and possible right lower lobe pneumonia. Patient exceeds the capability of our facility, he has been started on heparin drip and given Zosyn. Calls have been placed to the [facility], [place], [facility], and [facility]. Patient had not yet had his day meds and became short of breath, it was noted that he had entered into a rapid atrial fibrillation, sotalol ordered. Patient signed out to Dr. Novak at shift change for final disposition see course notes above, day shift 05/11 Dr Novak 05/[address] Akins. Care is assuemed. Currently awaiting beds at multiple facilities. problems include: 1. Increased dyspnea, on 2 L of oxygen at home increased to 4 L in the emergency department stable with no increasing respiratory distress 2. Pulmonary embolism, right side with segmental and subsegmental pulmonary arteries in the right lower lobe. Patient was on Eliquis and is now on heraprin 3. Associated right-sided pleural effusion and consolidation in the right lower and middle lobes. Chronic interstitial lung disease. Right heart strain. Low CRP and normal white count in the absence of fevers or cough argue against pneumonia as an alternative diagnosis for the effusion and right lower and middle lobe findings. Given the fairly impressive pleural effusion diagnostic thoracentesis is likely indicated. Possibility of underlying neoplasm is high given the pulmonary embolism appreciated while anticoagulated. This is not going to be possible in the emergency department this evening. 4. Echocardiogram shows relatively preserved left heart function with ejection fraction 60-65%. Severe right ventricle enlargement and moderately severe reduced right ventricular function. Severe right atrial enlargement. There is no pericardial effusion. 5. Severity of findings are reviewed with patient his . Patient fills out a POLST form and is DNR but wants all measures up to the point of needing intubation or CPR. 6. Afib with RVR with continued significant hypotension minimally responsive to fluids. Again reviewed with Dr. Babin, cardiology. Recommends beginning phenylephrine at 50 mcg titrating to a max of 200 with maps in the at least 65 range. Will also add amiodarone load 150 mg IV and then 1 mg/kg every 6 hours followed by .5 mg/kg. Central access will be obtained 05/12/2022 1:15am Central line placed without difficulty. phenyyephrine at 50mcg/min 90/68, MAP 75 Pateint had been in A fib until March when sotolol was started. Intial presentation and EKG show sinus rhythm with marked sinus arrhythmia at a rate of 65. Converted to rapid afib shortly after arrival 05/10. Converted to NSR at 57 shortly after amiodirone infusion started tonight 05/12/22- ([place]) Patient seen evaluated by myself. 82-year-old male currently being treated for AFib with RVR, pulmonary embolism, pleural effusion who initially presented with increasing shortness of breath. He required a central line with phenylephrine to stabilize his blood pressure along with amiodarone for heart rate. Patient this morning has no complaints. He is sitting up and appears well. GENERAL: Alert 82-year-old male HEENT: Head atraumatic,EOMI, pupils reactive, face symmetric, right-sided central line in place CARDIOVASCULAR: Irregularly irregular no murmur RESPIRATORY: Decreased breath sounds more on right than left but no respiratory distress speaks in full sentences EXTREMITIES: Normal range of motion, no clubbing or edema. Neurovascularly intact NEUROLOGICAL: Alert and oriented x4. SKIN: Warm, dry, no laceration, no petechiae, no rashes or lesions. Plan: 1. Awaiting placement 2. Atrial fibrillation: Continue amiodarone drip for 24 hours, he to talk with Cardiology about plan after amiodarone what medication. Continue heparin drip 3. Pulmonary embolism, continue heparin drip 4. Follow labs 5. loculated pleural effusion, continue antibiotics 05/[address] Akins [facility] [place] called for update. Possible bed today. 05/13/22 [place] 8am Patient seen and evaluated today. Getting tired of being in the emergency department which is understandable. No real complaints. Patient remains on multiple waiting list. Amiodarone drip has been stopped overnight he has been transferred to oral amiodarone. He is still requiring oxygen. He is still on phenylephrine drip hopefully to wean off phenylephrine today. He continues to be on multiple wait list. Need for transfer is loculated pleural effusion. GENERAL: Week alert 82-year-old male HEENT: Head atraumatic,EOMI, pupils reactive, face symmetric, [moist] mucous membranes CARDIOVASCULAR: Regular rate and rhythm without murmurs, rubs or gallops. RESPIRATORY: Minimal tachypnea no respiratory distress speaks in full sentences decreased breath sounds bilaterally EXTREMITIES: Normal range of motion, no clubbing or edema. Neurovascularly intact NEUROLOGICAL: Alert and oriented x4. SKIN: Warm, dry, no laceration, no petechiae, no rashes or lesions. A/P 1. Atrial fibrillation with RVR start p.o. medication amiodarone, continue anticoagulation Dr. Muñoz Cardiology consulted, amiodarone 200mg BID 2. Pulmonary embolism continue heparin drip 3. Hypotension: Possibly from amiodarone drip versus pulmonary embolism versus sepsis, start to wean off now the amiodarone has been stopped 4. Loculated pleural effusion, continue antibiotics talk with Radiology about possible thoracentesis here. 5. Continue waiting for placement Patient is becoming more tachypneic and hypoxic. Chest x-ray shows almost complete collapse of right lung with atelectasis. His he continues to have pulmonary embolism loculated effusion. He is on heparin drip. He is do not intubate, no CPR he is placed on high-flow nasal cannula. After discussion with Radiology patient had a successful thoracentesis at bedside with 970 cc removed. Fluid has been sent for cytology and other testing. Patient has been placed on high-flow nasal cannula prior to thoracentesis he was at 60% now he is at 45%. Seems to be breathing your. On able to decrease phenylephrine today he needs approximately 50 mics per minute. Patient signed out to Dr. Akins 9pm 05/13/22 Dr Akins Events of the they are reviewed. Call from [facility] to update status. A pparently patient had been excepted by Medicine Service and ICU care would be much more appropriate. Patient remains on waiting list at the , [facility] in [place] all other [facility] hospitals have declined care to to excess capacity 9:50 . Discussed with MICU bindery production manager Dr Henry. Patient is accepted, beds are available this evening, will arrange airlift when bed assigned. Airlift here 05/14/22 130am. Report given. <Uma Eugene, - Last Filed: 05/16/22 06:53> Lab Data Labs: Lab Results 05/10/22 05/10/22 05/10/22 Range/Units 19:27 19:35 19:35 WBC 9.3 (4.5-11.0) X10^3/uL RBC 4.61 (4.5-5.9) X10^6/uL Hgb 14.0 (13.5-17.5) g/dL Hct 41.9 (41-53) % MCV 90.9 (80-100) fL MCH 30.4 (26-34) PG MCHC 33.4 (30-36) % RDW 14.9 H (11.6-14.8) % Plt Count 202 (150-400) X10^3/uL Neut % (Auto) 73.3 (50-75) % Lymph % (Auto) 15.2 L (25-40) % [place] % (Auto) 8.6 (3-14) % Eos % (Auto) 2.0 (2-4) % Baso % (Auto) 0.9 (0-2) % Neut # (Auto) 6800 (8134-5896) /uL Lymph # (Auto) 1400 (9025-0778) /uL [place] # (Auto) 800 (0-900) /uL Eos # (Auto) 200 (0-450) /uL Baso # (Auto) 100 (0-100) /uL PT (10.1-12.7) SECONDS INR (0.9-1.3) APTT (26.4-36.2) SECONDS ABG pH (7.35-7.45) ABG pCO2 (35-45) mmHg ABG pO2 (80-100) mmHg ABG HCO3 (22-26) mmol/L ABG Total CO2 (21-31) mmol/L ABG O2 Saturation (95-100) % ABG Base Excess (-2-2) mmol/L FiO2 Sodium 136 L (137-145) mmol/L Potassium 4.2 (3.4-5.1) mmol/L Chloride 95 L (98-107) mmol/L Carbon Dioxide 39 H (22-32) mmol/L BUN 30 H (9-20) mg/dL Creatinine 0.88 (0.66-1.25) mg/dL Estimated GFR > 60 (>60) mL/min BUN/Creatinine Ratio 34.1 H (6-22) Glucose 107 (80-110) mg/dL Lactate (0.7-2.1) mmol/L Calcium 8.7 (8.4-10.2) mg/dL Magnesium 1.9 (1.6-2.3) mg/dL Total Bilirubin 0.6 (0.2-1.3) mg/dL AST 32 (17-59) IU/L ALT 20 (<50) IU/L Alkaline Phosphatase 128 H (38-126) U/L Total Creatine Kinase 22 L (55-170) U/L CK-MB (CK-2) TNP CK-MB (CK-2) Rel Index TNP Troponin I < 0.012 (0.01-0.034) ng/mL C-Reactive Protein 2.2 H (<1.0) mg/dL NT-Pro-B Natriuret Pep 2560 H (<450) pg/mL Total Protein 6.2 L (6.3-8.2) g/dL Albumin 3.3 L (3.5-5.0) g/dL Globulin 2.9 (1.7-4.1) g/dL Albumin/Globulin Ratio 1.1 (1.0-2.8) Procalcitonin 0.05 (<0.5) ng/mL Fluid Color Fluid Appearance Fluid RBC /uL Fld Tot Nucleated Cell /uL Fluid Polynuclear WBCs % Fluid Mononuclear WBCs % Fluid Eosinophils Fluid Other Cells % Body Fluid Clot Fluid Glucose mg/dL Fluid Total Protein g/dL Fluid LDH U/L Chlamy pneumoniae PCR (Not Detect) Adenovirus (PCR) (Not Detect) B. pertussis DNA (PCR) (Not Detecte) B.parapertussis DNA PCR (Not Detecte) Coronavirus OC43 (PCR) (Not Detect) Coronavirus HKU1 (PCR) (Not Detect) Coronavirus 229E (PCR) (Not Detect) SARS-CoV-2 (PCR) (Negative) Coronavirus NL63 (PCR) (Not Detect) Human Metapneumovir PCR (Not Detect) Influenza Type A (PCR) (Not Detect) Influenza Type B (PCR) (Not Detect) M. pneumoniae (PCR) (Not Detect) Parainfluenza 1 (PCR) (Not Detect) Parainfluenza 2 (PCR) (Not Detect) Parainfluenza 3 (PCR) (Not Detect) Parainfluenza 4 (PCR) (Not Detect) RSV (PCR) (Not Detect) Entero/Rhino (PCR) (Not Detect) 05/10/22 05/10/22 05/10/22 Range/Units 19:35 19:35 19:35 WBC (4.5-11.0) X10^3/uL RBC (4.5-5.9) X10^6/uL Hgb (13.5-17.5) g/dL Hct (41-53) % MCV (80-100) fL MCH (26-34) PG MCHC (30-36) % RDW (11.6-14.8) % Plt Count (150-400) X10^3/uL Neut % (Auto) (50-75) % Lymph % (Auto) (25-40) % [place] % (Auto) (3-14) % Eos % (Auto) (2-4) % Baso % (Auto) (0-2) % Neut # (Auto) (6905-7274) /uL Lymph # (Auto) (0558-7824) /uL [place] # (Auto) (0-900) /uL Eos # (Auto) (0-450) /uL Baso # (Auto) (0-100) /uL PT 13.7 H (10.1-12.7) SECONDS INR 1.2 (0.9-1.3) APTT (26.4-36.2) SECONDS ABG pH (7.35-7.45) ABG pCO2 (35-45) mmHg ABG pO2 (80-100) mmHg ABG HCO3 (22-26) mmol/L ABG Total CO2 (21-31) mmol/L ABG O2 Saturation (95-100) % ABG Base Excess (-2-2) mmol/L FiO2 Sodium (137-145) mmol/L Potassium (3.4-5.1) mmol/L Chloride (98-107) mmol/L Carbon Dioxide (22-32) mmol/L BUN (9-20) mg/dL Creatinine (0.66-1.25) mg/dL Estimated GFR (>60) mL/min BUN/Creatinine Ratio (6-22) Glucose (80-110) mg/dL Lactate 1.1 (0.7-2.1) mmol/L Calcium (8.4-10.2) mg/dL Magnesium (1.6-2.3) mg/dL Total Bilirubin (0.2-1.3) mg/dL AST (17-59) IU/L ALT (<50) IU/L Alkaline Phosphatase (38-126) U/L Total Creatine Kinase (55-170) U/L CK-MB (CK-2) CK-MB (CK-2) Rel Index Troponin I (0.01-0.034) ng/mL C-Reactive Protein (<1.0) mg/dL NT-Pro-B Natriuret Pep (<450) pg/mL Total Protein (6.3-8.2) g/dL Albumin (3.5-5.0) g/dL Globulin (1.7-4.1) g/dL Albumin/Globulin Ratio (1.0-2.8) Procalcitonin (<0.5) ng/mL Fluid Color Fluid Appearance Fluid RBC /uL Fld Tot Nucleated Cell /uL Fluid Polynuclear WBCs % Fluid Mononuclear WBCs % Fluid Eosinophils Fluid Other Cells % Body Fluid Clot Fluid Glucose mg/dL Fluid Total Protein g/dL Fluid LDH U/L Chlamy pneumoniae PCR (Not Detect) Adenovirus (PCR) (Not Detect) B. pertussis DNA (PCR) (Not Detecte) B.parapertussis DNA PCR (Not Detecte) Coronavirus OC43 (PCR) (Not Detect) Coronavirus HKU1 (PCR) (Not Detect) Coronavirus 229E (PCR) (Not Detect) SARS-CoV-2 (PCR) Negative (Negative) Coronavirus NL63 (PCR) (Not Detect) Human Metapneumovir PCR (Not Detect) Influenza Type A (PCR) (Not Detect) Influenza Type B (PCR) (Not Detect) M. pneumoniae (PCR) (Not Detect) Parainfluenza 1 (PCR) (Not Detect) Parainfluenza 2 (PCR) (Not Detect) Parainfluenza 3 (PCR) (Not Detect) Parainfluenza 4 (PCR) (Not Detect) RSV (PCR) (Not Detect) Entero/Rhino (PCR) (Not Detect) 05/10/22 05/10/22 05/11/22 Range/Units 19:35 19:47 03:35 WBC (4.5-11.0) X10^3/uL RBC (4.5-5.9) X10^6/uL Hgb (13.5-17.5) g/dL Hct (41-53) % MCV (80-100) fL MCH (26-34) PG MCHC (30-36) % RDW (11.6-14.8) % Plt Count (150-400) X10^3/uL Neut % (Auto) (50-75) % Lymph % (Auto) (25-40) % [place] % (Auto) (3-14) % Eos % (Auto) (2-4) % Baso % (Auto) (0-2) % Neut # (Auto) (4059-5803) /uL Lymph # (Auto) (1160-2036) /uL [place] # (Auto) (0-900) /uL Eos # (Auto) (0-450) /uL Baso # (Auto) (0-100) /uL PT (10.1-12.7) SECONDS INR (0.9-1.3) APTT 33 186 H* D (26.4-36.2) SECONDS ABG pH 7.35 (7.35-7.45) ABG pCO2 68.2 H* (35-45) mmHg ABG pO2 65 L (80-100) mmHg ABG HCO3 38 H (22-26) mmol/L ABG Total CO2 40 H (21-31) mmol/L ABG O2 Saturation 90 L (95-100) % ABG Base Excess 12.0 H (-2-2) mmol/L FiO2 32 Sodium (137-145) mmol/L Potassium (3.4-5.1) mmol/L Chloride (98-107) mmol/L Carbon Dioxide (22-32) mmol/L BUN (9-20) mg/dL Creatinine (0.66-1.25) mg/dL Estimated GFR (>60) mL/min BUN/Creatinine Ratio (6-22) Glucose (80-110) mg/dL Lactate (0.7-2.1) mmol/L Calcium (8.4-10.2) mg/dL Magnesium (1.6-2.3) mg/dL Total Bilirubin (0.2-1.3) mg/dL AST (17-59) IU/L ALT (<50) IU/L Alkaline Phosphatase (38-126) U/L Total Creatine Kinase (55-170) U/L CK-MB (CK-2) CK-MB (CK-2) Rel Index Troponin I (0.01-0.034) ng/mL C-Reactive Protein (<1.0) mg/dL NT-Pro-B Natriuret Pep (<450) pg/mL Total Protein (6.3-8.2) g/dL Albumin (3.5-5.0) g/dL Globulin (1.7-4.1) g/dL Albumin/Globulin Ratio (1.0-2.8) Procalcitonin (<0.5) ng/mL Fluid Color Fluid Appearance Fluid RBC /uL Fld Tot Nucleated Cell /uL Fluid Polynuclear WBCs % Fluid Mononuclear WBCs % Fluid Eosinophils Fluid Other Cells % Body Fluid Clot Fluid Glucose mg/dL Fluid Total Protein g/dL Fluid LDH U/L Chlamy pneumoniae PCR (Not Detect) Adenovirus (PCR) (Not Detect) B. pertussis DNA (PCR) (Not Detecte) B.parapertussis DNA PCR (Not Detecte) Coronavirus OC43 (PCR) (Not Detect) Coronavirus HKU1 (PCR) (Not Detect) Coronavirus 229E (PCR) (Not Detect) SARS-CoV-2 (PCR) (Negative) Coronavirus NL63 (PCR) (Not Detect) Human Metapneumovir PCR (Not Detect) Influenza Type A (PCR) (Not Detect) Influenza Type B (PCR) (Not Detect) M. pneumoniae (PCR) (Not Detect) Parainfluenza 1 (PCR) (Not Detect) Parainfluenza 2 (PCR) (Not Detect) Parainfluenza 3 (PCR) (Not Detect) Parainfluenza 4 (PCR) (Not Detect) RSV (PCR) (Not Detect) Entero/Rhino (PCR) (Not Detect) 05/11/22 05/11/22 05/11/22 Range/Units 03:35 03:35 11:59 WBC 8.5 (4.5-11.0) X10^3/uL RBC 4.97 (4.5-5.9) X10^6/uL Hgb 15.2 (13.5-17.5) g/dL Hct 45.4 (41-53) % MCV 91.5 (80-100) fL MCH 30.6 (26-34) PG MCHC 33.4 (30-36) % RDW 14.6 (11.6-14.8) % Plt Count 175 (150-400) X10^3/uL Neut % (Auto) 76.2 H (50-75) % Lymph % (Auto) 10.6 L (25-40) % [place] % (Auto) 10.7 (3-14) % Eos % (Auto) 1.9 L (2-4) % Baso % (Auto) 0.6 (0-2) % Neut # (Auto) 6500 (7364-4140) /uL Lymph # (Auto) 900 L (6772-3920) /uL [place] # (Auto) 900 (0-900) /uL Eos # (Auto) 200 (0-450) /uL Baso # (Auto) 0 (0-100) /uL PT (10.1-12.7) SECONDS INR (0.9-1.3) APTT 58 H D (26.4-36.2) SECONDS ABG pH (7.35-7.45) ABG pCO2 (35-45) mmHg ABG pO2 (80-100) mmHg ABG HCO3 (22-26) mmol/L ABG Total CO2 (21-31) mmol/L ABG O2 Saturation (95-100) % ABG Base Excess (-2-2) mmol/L FiO2 Sodium 139 (137-145) mmol/L Potassium 4.5 (3.4-5.1) mmol/L Chloride 92 L (98-107) mmol/L Carbon Dioxide 43 H* (22-32) mmol/L BUN 27 H (9-20) mg/dL Creatinine 0.94 (0.66-1.25) mg/dL Estimated GFR > 60 (>60) mL/min BUN/Creatinine Ratio 28.7 H (6-22) Glucose 118 H (80-110) mg/dL Lactate (0.7-2.1) mmol/L Calcium 8.6 (8.4-10.2) mg/dL Magnesium (1.6-2.3) mg/dL Total Bilirubin 0.9 (0.2-1.3) mg/dL AST 33 (17-59) IU/L ALT 21 (<50) IU/L Alkaline Phosphatase 128 H (38-126) U/L Total Creatine Kinase 22 L (55-170) U/L CK-MB (CK-2) TNP CK-MB (CK-2) Rel Index TNP Troponin I 0.016 (0.01-0.034) ng/mL C-Reactive Protein (<1.0) mg/dL NT-Pro-B Natriuret Pep 2730 H (<450) pg/mL Total Protein 6.6 (6.3-8.2) g/dL Albumin 3.5 (3.5-5.0) g/dL Globulin 3.1 (1.7-4.1) g/dL Albumin/Globulin Ratio 1.1 (1.0-2.8) Procalcitonin (<0.5) ng/mL Fluid Color Fluid Appearance Fluid RBC /uL Fld Tot Nucleated Cell /uL Fluid Polynuclear WBCs % Fluid Mononuclear WBCs % Fluid Eosinophils Fluid Other Cells % Body Fluid Clot Fluid Glucose mg/dL Fluid Total Protein g/dL Fluid LDH U/L Chlamy pneumoniae PCR (Not Detect) Adenovirus (PCR) (Not Detect) B. pertussis DNA (PCR) (Not Detecte) B.parapertussis DNA PCR (Not Detecte) Coronavirus OC43 (PCR) (Not Detect) Coronavirus HKU1 (PCR) (Not Detect) Coronavirus 229E (PCR) (Not Detect) SARS-CoV-2 (PCR) (Negative) Coronavirus NL63 (PCR) (Not Detect) Human Metapneumovir PCR (Not Detect) Influenza Type A (PCR) (Not Detect) Influenza Type B (PCR) (Not Detect) M. pneumoniae (PCR) (Not Detect) Parainfluenza 1 (PCR) (Not Detect) Parainfluenza 2 (PCR) (Not Detect) Parainfluenza 3 (PCR) (Not Detect) Parainfluenza 4 (PCR) (Not Detect) RSV (PCR) (Not Detect) Entero/Rhino (PCR) (Not Detect) 05/11/22 05/11/22 05/11/22 Range/Units 11:59 11:59 11:59 WBC (4.5-11.0) X10^3/uL RBC (4.5-5.9) X10^6/uL Hgb (13.5-17.5) g/dL Hct (41-53) % MCV (80-100) fL MCH (26-34) PG MCHC (30-36) % RDW (11.6-14.8) % Plt Count (150-400) X10^3/uL Neut % (Auto) (50-75) % Lymph % (Auto) (25-40) % [place] % (Auto) (3-14) % Eos % (Auto) (2-4) % Baso % (Auto) (0-2) % Neut # (Auto) (9229-8578) /uL Lymph # (Auto) (5359-5171) /uL [place] # (Auto) (0-900) /uL Eos # (Auto) (0-450) /uL Baso # (Auto) (0-100) /uL PT 14.5 H (10.1-12.7) SECONDS INR 1.3 (0.9-1.3) APTT Cancelled (26.4-36.2) SECONDS ABG pH (7.35-7.45) ABG pCO2 (35-45) mmHg ABG pO2 (80-100) mmHg ABG HCO3 (22-26) mmol/L ABG Total CO2 (21-31) mmol/L ABG O2 Saturation (95-100) % ABG Base Excess (-2-2) mmol/L FiO2 Sodium (137-145) mmol/L Potassium (3.4-5.1) mmol/L Chloride (98-107) mmol/L Carbon Dioxide (22-32) mmol/L BUN (9-20) mg/dL Creatinine (0.66-1.25) mg/dL Estimated GFR (>60) mL/min BUN/Creatinine Ratio (6-22) Glucose (80-110) mg/dL Lactate (0.7-2.1) mmol/L Calcium (8.4-10.2) mg/dL Magnesium (1.6-2.3) mg/dL Total Bilirubin (0.2-1.3) mg/dL AST (17-59) IU/L ALT (<50) IU/L Alkaline Phosphatase (38-126) U/L Total Creatine Kinase (55-170) U/L CK-MB (CK-2) CK-MB (CK-2) Rel Index Troponin I 0.013 (0.01-0.034) ng/mL C-Reactive Protein (<1.0) mg/dL NT-Pro-B Natriuret Pep 4630 H (<450) pg/mL Total Protein (6.3-8.2) g/dL Albumin (3.5-5.0) g/dL Globulin (1.7-4.1) g/dL Albumin/Globulin Ratio (1.0-2.8) Procalcitonin (<0.5) ng/mL Fluid Color Fluid Appearance Fluid RBC /uL Fld Tot Nucleated Cell /uL Fluid Polynuclear WBCs % Fluid Mononuclear WBCs % Fluid Eosinophils Fluid Other Cells % Body Fluid Clot Fluid Glucose mg/dL Fluid Total Protein g/dL Fluid LDH U/L Chlamy pneumoniae PCR (Not Detect) Adenovirus (PCR) (Not Detect) B. pertussis DNA (PCR) (Not Detecte) B.parapertussis DNA PCR (Not Detecte) Coronavirus OC43 (PCR) (Not Detect) Coronavirus HKU1 (PCR) (Not Detect) Coronavirus 229E (PCR) (Not Detect) SARS-CoV-2 (PCR) (Negative) Coronavirus NL63 (PCR) (Not Detect) Human Metapneumovir PCR (Not Detect) Influenza Type A (PCR) (Not Detect) Influenza Type B (PCR) (Not Detect) M. pneumoniae (PCR) (Not Detect) Parainfluenza 1 (PCR) (Not Detect) Parainfluenza 2 (PCR) (Not Detect) Parainfluenza 3 (PCR) (Not Detect) Parainfluenza 4 (PCR) (Not Detect) RSV (PCR) (Not Detect) Entero/Rhino (PCR) (Not Detect) 05/11/22 05/12/22 05/12/22 Range/Units 19:14 04:30 07:58 WBC 10.1 (4.5-11.0) X10^3/uL RBC 4.65 (4.5-5.9) X10^6/uL Hgb 14.0 (13.5-17.5) g/dL Hct 42.2 (41-53) % MCV 90.7 (80-100) fL MCH 30.1 (26-34) PG MCHC 33.2 (30-36) % RDW 14.8 (11.6-14.8) % Plt Count 209 (150-400) X10^3/uL Neut % (Auto) 78.0 H (50-75) % Lymph % (Auto) 11.5 L (25-40) % [place] % (Auto) 8.0 (3-14) % Eos % (Auto) 1.8 L (2-4) % Baso % (Auto) 0.7 (0-2) % Neut # (Auto) 7900 H (1181-4215) /uL Lymph # (Auto) 1200 (0798-7507) /uL [place] # (Auto) 800 (0-900) /uL Eos # (Auto) 200 (0-450) /uL Baso # (Auto) 100 (0-100) /uL PT (10.1-12.7) SECONDS INR (0.9-1.3) APTT 76 H* D 60 H D (26.4-36.2) SECONDS ABG pH (7.35-7.45) ABG pCO2 (35-45) mmHg ABG pO2 (80-100) mmHg ABG HCO3 (22-26) mmol/L ABG Total CO2 (21-31) mmol/L ABG O2 Saturation (95-100) % ABG Base Excess (-2-2) mmol/L FiO2 Sodium (137-145) mmol/L Potassium (3.4-5.1) mmol/L Chloride (98-107) mmol/L Carbon Dioxide (22-32) mmol/L BUN (9-20) mg/dL Creatinine (0.66-1.25) mg/dL Estimated GFR (>60) mL/min BUN/Creatinine Ratio (6-22) Glucose (80-110) mg/dL Lactate (0.7-2.1) mmol/L Calcium (8.4-10.2) mg/dL Magnesium (1.6-2.3) mg/dL Total Bilirubin (0.2-1.3) mg/dL AST (17-59) IU/L ALT (<50) IU/L Alkaline Phosphatase (38-126) U/L Total Creatine Kinase (55-170) U/L CK-MB (CK-2) CK-MB (CK-2) Rel Index Troponin I (0.01-0.034) ng/mL C-Reactive Protein (<1.0) mg/dL NT-Pro-B Natriuret Pep (<450) pg/mL Total Protein (6.3-8.2) g/dL Albumin (3.5-5.0) g/dL Globulin (1.7-4.1) g/dL Albumin/Globulin Ratio (1.0-2.8) Procalcitonin (<0.5) ng/mL Fluid Color Fluid Appearance Fluid RBC /uL Fld Tot Nucleated Cell /uL Fluid Polynuclear WBCs % Fluid Mononuclear WBCs % Fluid Eosinophils Fluid Other Cells % Body Fluid Clot Fluid Glucose mg/dL Fluid Total Protein g/dL Fluid LDH U/L Chlamy pneumoniae PCR (Not Detect) Adenovirus (PCR) (Not Detect) B. pertussis DNA (PCR) (Not Detecte) B.parapertussis DNA PCR (Not Detecte) Coronavirus OC43 (PCR) (Not Detect) Coronavirus HKU1 (PCR) (Not Detect) Coronavirus 229E (PCR) (Not Detect) SARS-CoV-2 (PCR) (Negative) Coronavirus NL63 (PCR) (Not Detect) Human Metapneumovir PCR (Not Detect) Influenza Type A (PCR) (Not Detect) Influenza Type B (PCR) (Not Detect) M. pneumoniae (PCR) (Not Detect) Parainfluenza 1 (PCR) (Not Detect) Parainfluenza 2 (PCR) (Not Detect) Parainfluenza 3 (PCR) (Not Detect) Parainfluenza 4 (PCR) (Not Detect) RSV (PCR) (Not Detect) Entero/Rhino (PCR) (Not Detect) 05/12/22 05/12/22 05/13/22 Range/Units 07:58 07:58 04:36 WBC (4.5-11.0) X10^3/uL RBC (4.5-5.9) X10^6/uL Hgb (13.5-17.5) g/dL Hct (41-53) % MCV (80-100) fL MCH (26-34) PG MCHC (30-36) % RDW (11.6-14.8) % Plt Count (150-400) X10^3/uL Neut % (Auto) (50-75) % Lymph % (Auto) (25-40) % [place] % (Auto) (3-14) % Eos % (Auto) (2-4) % Baso % (Auto) (0-2) % Neut # (Auto) (5285-8385) /uL Lymph # (Auto) (1208-1992) /uL [place] # (Auto) (0-900) /uL Eos # (Auto) (0-450) /uL Baso # (Auto) (0-100) /uL PT (10.1-12.7) SECONDS INR (0.9-1.3) APTT 54 H (26.4-36.2) SECONDS ABG pH (7.35-7.45) ABG pCO2 (35-45) mmHg ABG pO2 (80-100) mmHg ABG HCO3 (22-26) mmol/L ABG Total CO2 (21-31) mmol/L ABG O2 Saturation (95-100) % ABG Base Excess (-2-2) mmol/L FiO2 Sodium 134 L (137-145) mmol/L Potassium 4.0 (3.4-5.1) mmol/L Chloride 93 L (98-107) mmol/L Carbon Dioxide 39 H (22-32) mmol/L BUN 23 H (9-20) mg/dL Creatinine 0.60 L (0.66-1.25) mg/dL Estimated GFR > 60 (>60) mL/min BUN/Creatinine Ratio 38.3 H (6-22) Glucose 119 H (80-110) mg/dL Lactate (0.7-2.1) mmol/L Calcium 8.2 L (8.4-10.2) mg/dL Magnesium (1.6-2.3) mg/dL Total Bilirubin 0.6 (0.2-1.3) mg/dL AST 27 (17-59) IU/L ALT 18 (<50) IU/L Alkaline Phosphatase 111 (38-126) U/L Total Creatine Kinase (55-170) U/L CK-MB (CK-2) CK-MB (CK-2) Rel Index Troponin I (0.01-0.034) ng/mL C-Reactive Protein (<1.0) mg/dL NT-Pro-B Natriuret Pep 3550 H (<450) pg/mL Total Protein 5.7 L (6.3-8.2) g/dL Albumin 3.0 L (3.5-5.0) g/dL Globulin 2.7 (1.7-4.1) g/dL Albumin/Globulin Ratio 1.1 (1.0-2.8) Procalcitonin (<0.5) ng/mL Fluid Color Fluid Appearance Fluid RBC /uL Fld Tot Nucleated Cell /uL Fluid Polynuclear WBCs % Fluid Mononuclear WBCs % Fluid Eosinophils Fluid Other Cells % Body Fluid Clot Fluid Glucose mg/dL Fluid Total Protein g/dL Fluid LDH U/L Chlamy pneumoniae PCR (Not Detect) Adenovirus (PCR) (Not Detect) B. pertussis DNA (PCR) (Not Detecte) B.parapertussis DNA PCR (Not Detecte) Coronavirus OC43 (PCR) (Not Detect) Coronavirus HKU1 (PCR) (Not Detect) Coronavirus 229E (PCR) (Not Detect) SARS-CoV-2 (PCR) (Negative) Coronavirus NL63 (PCR) (Not Detect) Human Metapneumovir PCR (Not Detect) Influenza Type A (PCR) (Not Detect) Influenza Type B (PCR) (Not Detect) M. pneumoniae (PCR) (Not Detect) Parainfluenza 1 (PCR) (Not Detect) Parainfluenza 2 (PCR) (Not Detect) Parainfluenza 3 (PCR) (Not Detect) Parainfluenza 4 (PCR) (Not Detect) RSV (PCR) (Not Detect) Entero/Rhino (PCR) (Not Detect) 05/13/22 05/13/22 05/13/22 Range/Units 08:00 08:00 10:27 WBC 10.9 (4.5-11.0) X10^3/uL RBC 4.60 (4.5-5.9) X10^6/uL Hgb 13.9 (13.5-17.5) g/dL Hct 41.8 (41-53) % MCV 90.9 (80-100) fL MCH 30.3 (26-34) PG MCHC 33.3 (30-36) % RDW 14.6 (11.6-14.8) % Plt Count 194 (150-400) X10^3/uL Neut % (Auto) 78.1 H (50-75) % Lymph % (Auto) 10.0 L (25-40) % [place] % (Auto) 9.2 (3-14) % Eos % (Auto) 2.0 (2-4) % Baso % (Auto) 0.7 (0-2) % Neut # (Auto) 8500 H (1129-2659) /uL Lymph # (Auto) 1100 (4734-7864) /uL [place] # (Auto) 1000 H (0-900) /uL Eos # (Auto) 200 (0-450) /uL Baso # (Auto) 100 (0-100) /uL PT (10.1-12.7) SECONDS INR (0.9-1.3) APTT (26.4-36.2) SECONDS ABG pH (7.35-7.45) ABG pCO2 (35-45) mmHg ABG pO2 (80-100) mmHg ABG HCO3 (22-26) mmol/L ABG Total CO2 (21-31) mmol/L ABG O2 Saturation (95-100) % ABG Base Excess (-2-2) mmol/L FiO2 Sodium 132 L (137-145) mmol/L Potassium 4.1 (3.4-5.1) mmol/L Chloride 90 L (98-107) mmol/L Carbon Dioxide 41 H* (22-32) mmol/L BUN 17 (9-20) mg/dL Creatinine 0.67 (0.66-1.25) mg/dL Estimated GFR > 60 (>60) mL/min BUN/Creatinine Ratio 25.4 H (6-22) Glucose 113 H (80-110) mg/dL Lactate (0.7-2.1) mmol/L Calcium 8.3 L (8.4-10.2) mg/dL Magnesium (1.6-2.3) mg/dL Total Bilirubin 0.7 (0.2-1.3) mg/dL AST 26 (17-59) IU/L ALT 19 (<50) IU/L Alkaline Phosphatase 113 (38-126) U/L Total Creatine Kinase (55-170) U/L CK-MB (CK-2) CK-MB (CK-2) Rel Index Troponin I (0.01-0.034) ng/mL C-Reactive Protein (<1.0) mg/dL NT-Pro-B Natriuret Pep (<450) pg/mL Total Protein 5.5 L (6.3-8.2) g/dL Albumin 2.9 L (3.5-5.0) g/dL Globulin 2.6 (1.7-4.1) g/dL Albumin/Globulin Ratio 1.1 (1.0-2.8) Procalcitonin (<0.5) ng/mL Fluid Color Fluid Appearance Fluid RBC /uL Fld Tot Nucleated Cell /uL Fluid Polynuclear WBCs % Fluid Mononuclear WBCs % Fluid Eosinophils Fluid Other Cells % Body Fluid Clot Fluid Glucose mg/dL Fluid Total Protein g/dL Fluid LDH U/L Chlamy pneumoniae PCR Not detected (Not Detect) Adenovirus (PCR) Not detected (Not Detect) B. pertussis DNA (PCR) Not detected (Not Detecte) B.parapertussis DNA PCR Not detected (Not Detecte) Coronavirus OC43 (PCR) Not detected (Not Detect) Coronavirus HKU1 (PCR) Not detected (Not Detect) Coronavirus 229E (PCR) Not detected (Not Detect) SARS-CoV-2 (PCR) Not detected (Negative) Coronavirus NL63 (PCR) Not detected (Not Detect) Human Metapneumovir PCR Not detected (Not Detect) Influenza Type A (PCR) Not detected (Not Detect) Influenza Type B (PCR) Not detected (Not Detect) M. pneumoniae (PCR) Not detected (Not Detect) Parainfluenza 1 (PCR) Not detected (Not Detect) Parainfluenza 2 (PCR) Not detected (Not Detect) Parainfluenza 3 (PCR) Not detected (Not Detect) Parainfluenza 4 (PCR) Not detected (Not Detect) RSV (PCR) Not detected (Not Detect) Entero/Rhino (PCR) Not detected (Not Detect) 05/13/22 05/13/22 05/13/22 Range/Units 14:15 14:15 20:37 WBC (4.5-11.0) X10^3/uL RBC (4.5-5.9) X10^6/uL Hgb (13.5-17.5) g/dL Hct (41-53) % MCV (80-100) fL MCH (26-34) PG MCHC (30-36) % RDW (11.6-14.8) % Plt Count (150-400) X10^3/uL Neut % (Auto) (50-75) % Lymph % (Auto) (25-40) % [place] % (Auto) (3-14) % Eos % (Auto) (2-4) % Baso % (Auto) (0-2) % Neut # (Auto) (1434-9991) /uL Lymph # (Auto) (5260-8182) /uL [place] # (Auto) (0-900) /uL Eos # (Auto) (0-450) /uL Baso # (Auto) (0-100) /uL PT (10.1-12.7) SECONDS INR (0.9-1.3) APTT 48 H (26.4-36.2) SECONDS ABG pH (7.35-7.45) ABG pCO2 (35-45) mmHg ABG pO2 (80-100) mmHg ABG HCO3 (22-26) mmol/L ABG Total CO2 (21-31) mmol/L ABG O2 Saturation (95-100) % ABG Base Excess (-2-2) mmol/L FiO2 Sodium (137-145) mmol/L Potassium (3.4-5.1) mmol/L Chloride (98-107) mmol/L Carbon Dioxide (22-32) mmol/L BUN (9-20) mg/dL Creatinine (0.66-1.25) mg/dL Estimated GFR (>60) mL/min BUN/Creatinine Ratio (6-22) Glucose (80-110) mg/dL Lactate (0.7-2.1) mmol/L Calcium (8.4-10.2) mg/dL Magnesium (1.6-2.3) mg/dL Total Bilirubin (0.2-1.3) mg/dL AST (17-59) IU/L ALT (<50) IU/L Alkaline Phosphatase (38-126) U/L Total Creatine Kinase (55-170) U/L CK-MB (CK-2) CK-MB (CK-2) Rel Index Troponin I (0.01-0.034) ng/mL C-Reactive Protein (<1.0) mg/dL NT-Pro-B Natriuret Pep (<450) pg/mL Total Protein (6.3-8.2) g/dL Albumin (3.5-5.0) g/dL Globulin (1.7-4.1) g/dL Albumin/Globulin Ratio (1.0-2.8) Procalcitonin (<0.5) ng/mL Fluid Color Yellow Fluid Appearance Clear Fluid RBC 2536 /uL Fld Tot Nucleated Cell 567 /uL Fluid Polynuclear WBCs 2 % Fluid Mononuclear WBCs 97 % Fluid Eosinophils Not Reportable Fluid Other Cells 1 % Body Fluid Clot No clots present Fluid Glucose 114 mg/dL Fluid Total Protein 3.3 g/dL Fluid LDH 304 U/L Chlamy pneumoniae PCR (Not Detect) Adenovirus (PCR) (Not Detect) B. pertussis DNA (PCR) (Not Detecte) B.parapertussis DNA PCR (Not Detecte) Coronavirus OC43 (PCR) (Not Detect) Coronavirus HKU1 (PCR) (Not Detect) Coronavirus 229E (PCR) (Not Detect) SARS-CoV-2 (PCR) (Negative) Coronavirus NL63 (PCR) (Not Detect) Human Metapneumovir PCR (Not Detect) Influenza Type A (PCR) (Not Detect) Influenza Type B (PCR) (Not Detect) M. pneumoniae (PCR) (Not Detect) Parainfluenza 1 (PCR) (Not Detect) Parainfluenza 2 (PCR) (Not Detect) Parainfluenza 3 (PCR) (Not Detect) Parainfluenza 4 (PCR) (Not Detect) RSV (PCR) (Not Detect) Entero/Rhino (PCR) (Not Detect) Urine Dip Bedside Urine Glucose Negative Bedside Urine Bilirubin - Negative Urine Specific [place] 1.020 Bedside Urine Occult Blood - Negative Bedside Urine pH 5.5 Bedside Urine Protein - Negative Bedside Urine Urobilinogen - Negative Bedside Urine Nitrite - Negative Bedside Urine Leukocytes - Negative Esterase Imaging Data Chest x-ray: Radiologist's Impression: XRay Report Signed Patient: Lennox Devine MR#: [id number] : 1940 Acct:[id number] Age/Sex: 82 / M Date of Service: 05/11/22 Loc: ED Accession Number: [id number] ?? Procedure: XR chest 1V Ordering Provider: Hilaria Akins MD PROCEDURE:? XR CHEST 1V ? INDICATIONS:? line placement ? TECHNIQUE:? One view of the chest was acquired.? ? COMPARISON:? [facility], CT, CT ANGIO CHEST PE PROTOCOL, 05/10/2022, 20:22.? [facility], CR, XR CHEST 1V, 05/10/2022, 19:26. ? FINDINGS:? ? Surgical changes and devices:? There is a new right internal jugular catheter with the tip extending to the region of the cavoatrial junction. ? Lungs and pleura:? No definite evidence of pneumothorax.? There is a moderate to large loculated right pleural effusion which appears increased in size compared to the prior study.? Pulmonary edema is demonstrated within the visualized aerated lungs as well as chronic interstitial opacities. ? Mediastinum:? Mediastinal contours appear normal.? Heart size is normal.? ? Bones and chest wall:? No suspicious bony lesions.? Overlying soft tissues appear unremarkable.? ? IMPRESSION:? ? 1. No evidence of pneumothorax. ? 2. Increase in size of a moderate to large loculated right pleural effusion. ? 3. Bilateral opacities within the aerated lungs consistent with interstitial lung disease and pulmonary edema.? ? ? Dictated by: Dexter Ruiz M.D. on 05/12/2022 at 1:02 ? ? CX 2: Radiologist's Impression: Signed Patient: Lennox Devine MR#: [id number] : 1940 Acct:[id number] Age/Sex: 82 / M Date of Service: 05/13/22 Loc: ED Accession Number: [id number] ?? Procedure: XR chest 1V Ordering Provider: Uma Eugene D.O. PROCEDURE:? XR CHEST 1V ? INDICATIONS:? effusion, increased diffculty breathing ? TECHNIQUE:? One view of the chest was acquired.? ? COMPARISON:[facility], , XR CHEST 1V, 05/12/2022, 0:01. ? FINDINGS:? ? Surgical changes and devices:? Right central venous catheter is unchanged. ? Lungs and pleura:? There is near complete opacification of the right hemithorax which is increased in extent when compared with the study dated May 12, 2022. Reticular radiopacities with superimposed patchy airspace opacities in the left lung are redemonstrated and appear unchanged from the prior study. ? Mediastinum:? Mediastinal contours appear normal.? Heart size is normal.? ? Bones and chest wall:? No suspicious bony lesions.? Overlying soft tissues appear unremarkable.? ? IMPRESSION:? Findings suggesting increased size of the right pleural effusion when compared with the prior study.? There is near complete opacification of the right hemithorax. ? ? Dictated by: Nerissa Lynn M.D. on 05/13/2022 at 9:50 ? ? [facility] Narrative Medical decision making narrative: 82-year-old male with extensive medical history presents with a chief complaint of worsening shortness of breath over at least the past 24 hours or so. At baseline he uses 2 L of oxygen but has had to increase to 4 L and states that minimal exertion create significant shortness of breath. He denies any change in medications and states that he has been compliant with all meds. His workup demonstrates right-sided pulmonary emboli with possible evidence of radiographic right heart strain along with a large loculated effusion and possible right low er lobe pneumonia. Patient exceeds the capability of our facility, he has been started on heparin drip and given Zosyn. Calls have been placed to the [facility], [place], [facility], and [facility]. Patient had not yet had his day meds and became short of breath, it was noted that he had entered into a rapid atrial fibrillation, sotalol ordered. Patient signed out to Dr. Novak at shift change for final disposition see course notes above, day shift 05/11 Dr Novak 05/[address] Akins. Care is assuemed. Currently awaiting beds at multiple facilities. problems include: 1. Increased dyspnea, on 2 L of oxygen at home increased to 4 L in the emergency department stable with no increasing respiratory distress 2. Pulmonary embolism, right side with segmental and subsegmental pulmonary arteries in the right lower lobe. Patient was on Eliquis and is now on heraprin 3. Associated right-sided pleural effusion and consolidation in the right lower and middle lobes. Chronic interstitial lung disease. Right heart strain. Low CRP and normal white count in the absence of fevers or cough argue against pneumonia as an alternative diagnosis for the effusion and right lower and middle lobe findings. Given the fairly impressive pleural effusion diagnostic thoracentesis is likely indicated. Possibility of underlying neoplasm is high given the pulmonary embolism appreciated while anticoagulated. This is not going to be possible in the emergency department this evening. 4. Echocardiogram shows relatively preserved left heart function with ejection fraction 60-65%. Severe right ventricle enlargement and moderately severe reduced right ventricular function. Severe right atrial enlargement. There is no pericardial effusion. 5. Severity of findings are reviewed with patient his . Patient fills out a POLST form and is DNR but wants all measures up to the point of needing intubation or CPR. 6. Afib with RVR with continued significant hypotension minimally responsive to fluids. Again reviewed with Dr. Babin, cardiology. Recommends beginning phenylephrine at 50 mcg titrating to a max of 200 with maps in the at least 65 range. Will also add amiodarone load 150 mg IV and then 1 mg/kg every 6 hours followed by .5 mg/kg. Central access will be obtained 05/12/2022 1:15am Central line placed without difficulty. phenyyephrine at 50mcg/min 90/68, MAP 75 Pateint had been in A fib until March when sotolol was started. Intial presentation and EKG show sinus rhythm with marked sinus arrhythmia at a rate of 65. Converted to rapid afib shortly after arrival 05/10. Converted to NSR at 57 shortly after amiodirone infusion started tonight 05/12/22- ([place]) Patient seen evaluated by myself. 82-year-old male currently being treated for AFib with RVR, pulmonary embolism, pleural effusion who initially presented with increasing shortness of breath. He required a central line with phenylephrine to stabilize his blood pressure along with amiodarone for heart rate. Patient this morning has no complaints. He is sitting up and appears well. GENERAL: Alert 82-year-old male HEENT: Head atraumatic,EOMI, pupils reactive, face symmetric, right-sided central line in place CARDIOVASCULAR: Irregularly irregular no murmur RESPIRATORY: Decreased breath sounds more on right than left but no respiratory distress speaks in full sentences EXTREMITIES: Normal range of motion, no clubbing or edema. Neurovascularly intact NEUROLOGICAL: Alert and oriented x4. SKIN: Warm, dry, no laceration, no petechiae, no rashes or lesions. Plan: 1. Awaiting placement 2. Atrial fibrillation: Continue amiodarone drip for 24 hours, he to talk with Cardiology about plan after amiodarone what medication. Continue heparin drip 3. Pulmonary embolism, continue heparin drip 4. Follow labs 5. loculated pleural effusion, continue antibiotics 05/[address] Akins [facility] called for update. Possible bed today. 05/13/22 [place] 8am Patient seen and evaluated today. Getting tired of being in the emergency department which is understandable. No real complaints. Patient remains on multiple waiting list. Amiodarone drip has been stopped overnight he has been transferred to oral amiodarone. He is still requiring oxygen. He is still on phenylephrine drip hopefully to wean off phenylephrine today. He continues to be on multiple wait list. Need for transfer is loculated pleural effusion. GENERAL: Week alert 82-year-old male HEENT: Head atraumatic,EOMI, pupils reactive, face symmetric, [moist] mucous membranes CARDIOVASCULAR: Regular rate and rhythm without murmurs, rubs or gallops. RESPIRATORY: Minimal tachypnea no respiratory distress speaks in full sentences decreased breath sounds bilaterally EXTREMITIES: Normal range of motion, no clubbing or edema. Neurovascularly intact NEUROLOGICAL: Alert and oriented x4. SKIN: Warm, dry, no laceration, no petechiae, no rashes or lesions. A/P 1. Atrial fibrillation with RVR start p.o. medication amiodarone, continue anticoagulation Dr. Muñoz Cardiology consulted, amiodarone 200mg BID 2. Pulmonary embolism continue heparin drip 3. Hypotension: Possibly from amiodarone drip versus pulmonary embolism versus sepsis, start to wean off now the amiodarone has been stopped 4. Loculated pleural effusion, continue antibiotics talk with Radiology about possible thoracentesis here. 5. Continue waiting for placement Patient is becoming more tachypneic and hypoxic. Chest x-ray shows almost complete collapse of right lung with atelectasis. His he continues to have pulmonary embolism loculated effusion. He is on heparin drip. He is do not intubate, no CPR he is placed on high-flow nasal cannula. After discussion with Radiology patient had a [facility] with 970 cc removed. Fluid has been sent for cytology and other testing. Patient has been placed on high-flow nasal cannula prior to thoracentesis he was at 60% now he is at 45%. Seems to be breathing your. On able to decrease phenylephrine today he needs approximately 50 mics per minute. Patient signed out to Dr. Akins <Hilaria Akins MD - Last Filed: 05/14/22 04:09> Critical Care Time Critical Care Time: Yes Total Critical Care Time: 306 Attestation: Critical care time is separate from other billable procedures. There is a high probability of a significant, sudden or life-threatening deterioration that requires my full and direct attention, intervention and personal management. This critical care time includes consultation with family and other consulting doctors, review of records, and interpretation of data from labs, EKGs and imaging as well as managements of heart failure, hemodynamic instability, IV management of heart rate, blood pressure. Actue management of respiratory decompensation Multi day management in ER due to lack of bad capacity Discharge Plan Departure Patient Disposition: [facility] Clinical Impression: Atrial fibrillation with rapid ventricular response, Pulmonary embolism, Pleural effusion, Right heart failure, unspecified, Chronic interstitial lung disease, Respiratory failure with hypoxia Prescriptions: No Action sotalol 80 mg tablet 80 mg PO DAILY clopidogrel 75 mg tablet 75 mg PO DAILY pantoprazole 40 mg Tablet,Delayed Release (Dr/Ec) 40 mg PO DAILY gabapentin 300 mg Capsule 300 mg PO BEDTIME furosemide 20 mg tablet 20 mg PO DAILY Eliquis 5 mg Tablet 5 mg PO BID Referrals: Jett Briggs MD [Primary Care Provider] -
[2022-05-10 19:59] LABS: Lactate (Lactic Acid) 1.1 mmol/L (0.7-2.1)
[2022-05-10 20:05] LABS: Fractionated Inspired Oxygen 32; HCO3 ABG 38 mmol/L (22-26); Oxygen Saturation ABG 90 % (95-100); PCO2 ABG 68.2 mmHg (35-45); PO2 ABG 65 mmHg (80-100); TCO2 ABG 40 mmol/L (21-31); pH ABG 7.35 (7.35-7.45)
[2022-05-10 20:05] LABS: Add Manual Diff / Slide Review NO; Alanine Aminotransferase 20 IU/L (<50); Albumin 3.3 g/dL (3.5-5.0); Albumin Globulin Ratio 1.1 (1.0-2.8); Alkaline Phosphatase 128 U/L (38-126); Aspartate Aminotransferase 32 IU/L (17-59); BUN Creatinine Ratio 34.1 (6-22); Basophils Absolute Auto 100 /uL (0-100); Basophils Percent Auto 0.9 % (0-2); Bilirubin Total 0.6 mg/dL (0.2-1.3); Blood Urea Nitrogen 30 mg/dL (9-20); C-Reactive Protein Quant 2.2 mg/dL (<1.0); Calcium 8.7 mg/dL (8.4-10.2); Carbon Dioxide 39 mmol/L (22-32); Chloride 95 mmol/L (98-107); Eosinophils Absolute Auto 200 /uL (0-450); Estimated Glomerular Filt Rate > 60 mL/min (>60); Globulin 2.9 g/dL (1.7-4.1); Glucose 107 mg/dL (80-110); HEMOLYSIS < 15 (0-50); Hematocrit 41.9 % (41-53); Lymphocytes Absolute Auto 1400 /uL (1100-4500); Lymphocytes Percent Auto 15.2 % (25-40); Mean Corpuscular HGB Conc 33.4 % (30-36); Mean Corpuscular Hemoglobin 30.4 PG (26-34); Mean Corpuscular Volume 90.9 fL (80-100); Monocytes Absolute Auto 800 /uL (0-900); Monocytes Percent Auto 8.6 % (3-14); Neutrophils Absolute Auto 6800 /uL (1500-7000); Neutrophils Percent Auto 73.3 % (50-75); Platelet Count 202 X10^3/uL (150-400); Potassium 4.2 mmol/L (3.4-5.1); Red Blood Cell Count 4.61 X10^6/uL (4.5-5.9); Red Cell Distribution Width 14.9 % (11.6-14.8); Sodium 136 mmol/L (137-145); Total Protein 6.2 g/dL (6.3-8.2); White Blood Cell Count 9.3 X10^3/uL (4.5-11.0)
[2022-05-10 20:09] LABS: COVID19 -Nasal RAPID Negative (Negative)
--- NOTE | 2022-05-10 20:12 | DI.CT.S_ITS ---
PROCEDURE: CT ANGIO CHEST PE PROTOCOL INDICATIONS: SOB, hypoxemia, travel, sedentary TECHNIQUE: After the administration of intravenous contrast, 2 mm thick sections acquired from the pulmonary apices to the posterior costophrenic angles. 3-dimensional maximum intensity projection (MIP) coronal and sagittal reformats were then acquired through the thorax. For radiation dose reduction, the following was used: automated exposure control, adjustment of mA and/or kV according to patient size. COMPARISON: [facility], CR, L-SPINE 2-3 VIEWS, 03/17/2011, 9:00. [facility], CR, XR CHEST 1V, 05/10/2022, 19:26. FINDINGS: Image quality: Excellent. Pulmonary arteries: Pulmonary arteries demonstrate filling defects within segmental and subsegmental pulmonary arteries within the right lower lobe consistent with pulmonary embolism. There is enlargement of the pulmonary arteries, with the main pulmonary artery measuring up to 3.5 cm. There is flattening of the interventricular septum without definite leftward deviation. There is reflux of contrast into the inferior vena cava and hepatic veins suggestive of elevated right heart filling pressures. Lungs and pleura: There is a moderate to large right pleural effusion with circumferential areas of loculation. Dependent atelectasis is demonstrated in the right lung as well as consolidation in the right lower and middle lobes. Bilateral subpleural reticulation are demonstrated consistent with chronic interstitial lung disease. Paraseptal emphysematous changes are also demonstrated. No left pleural effusion. No pneumothorax. The trachea and central airways appear patent. Mediastinum: Heart size is enlarged, without pericardial effusion. Thoracic aorta is normal in caliber and enhancement. There are few mildly enlarged mediastinal lymph nodes including a precarinal node measuring up to 1.4 cm in short axis. Esophagus is normal in caliber, with a small hiatal hernia. Bones and chest wall: No suspicious bony lesions. There is a mild anterior compression deformity of the T12 vertebral body which appears similar to the prior x-ray study. Thyroid gland demonstrates no discrete nodules. No axillary or supraclavicular adenopathy. Abdomen: Visualized upper abdomen demonstrates calcifications within the liver and spleen consistent with sequelae of old granulomas disease. IMPRESSION: 1. Pulmonary embolism demonstrated within segmental and subsegmental pulmonary arteries in the right lower lobe. 2. Enlargement of the pulmonary arteries and flattening of the interventricular septum may reflect developing right heart strain. There is also evidence of right heart filling pressures with reflux of contrast into the inferior vena cava and hepatic veins. 3. Moderate to large loculated right pleural effusion and extensive consolidation in the right lower lobe and right middle lobe. Associated pneumonia is not excluded. 4. Findings consistent with chronic interstitial lung disease. 5. Mildly enlarged mediastinal lymph nodes are nonspecific but likely reactive. Findings discussed with Dr. Frankel on 05/10/2022 at 9:21 p.m.. Dictated by: Dexter Ruiz M.D. on 05/10/2022 at 21:12 Approved by: Dexter Ruiz M.D. on 05/10/2022 at 21:25
[2022-05-10 20:15] LABS: INR 1.2 (0.9-1.3); Prothrombin Time 13.7 SECONDS (10.1-12.7)
[2022-05-10 20:18] LABS: Procalcitonin 0.05 ng/mL (<0.5)
[2022-05-10 20:18] LABS: Creatine Kinase 22 U/L (55-170); Magnesium 1.9 mg/dL (1.6-2.3)
[2022-05-10 20:31] LABS: NT-proBNP (BNP-Adult 18+) 2560 pg/mL (<450); Troponin I < 0.012 ng/mL (0.01-0.034)
[2022-05-10] MEDS: FUROSEMIDE 40 MG/4 ML VIAL IV (20:54)
[2022-05-10 21:45] LABS: PTT Partial Thromboplastin Tim 33 SECONDS (26.4-36.2)
[2022-05-10] MEDS: HEPARIN DRIP 25,000 UNIT/500 ML IV.SOLN 20 UNIT IV (21:58)
[2022-05-10] MEDS: HEPARIN 5,000 UNIT/ML VIAL 7100 UNIT IV (21:58)
[2022-05-10] MEDS: PIPERACILLIN/TAZO 4.5 GM in SODIUM CHLORIDE 0.9% 100 ML IV (21:59)
[2022-05-11] VITALS (108 sets, daily range): BP systolic 55–140; BP diastolic 38–77; PULSE 56–130; RESP 11–49; O2SAT 87–100
[2022-05-11 03:54] LABS: Add Manual Diff / Slide Review NO; Basophils Absolute Auto 0 /uL (0-100); Basophils Percent Auto 0.6 % (0-2); Eosinophils Absolute Auto 200 /uL (0-450); Eosinophils Percent Auto 1.9 % (2-4); Hematocrit 45.4 % (41-53); Hemoglobin 15.2 g/dL (13.5-17.5); Lymphocytes Absolute Auto 900 /uL (1100-4500); Lymphocytes Percent Auto 10.6 % (25-40); Mean Corpuscular HGB Conc 33.4 % (30-36); Mean Corpuscular Hemoglobin 30.6 PG (26-34); Mean Corpuscular Volume 91.5 fL (80-100); Monocytes Absolute Auto 900 /uL (0-900); Monocytes Percent Auto 10.7 % (3-14); Neutrophils Absolute Auto 6500 /uL (1500-7000); Neutrophils Percent Auto 76.2 % (50-75); Platelet Count 175 X10^3/uL (150-400); Red Blood Cell Count 4.97 X10^6/uL (4.5-5.9); Red Cell Distribution Width 14.6 % (11.6-14.8); White Blood Cell Count 8.5 X10^3/uL (4.5-11.0)
[2022-05-11 03:55] LABS: Alanine Aminotransferase 21 IU/L (<50); Albumin 3.5 g/dL (3.5-5.0); Albumin Globulin Ratio 1.1 (1.0-2.8); Alkaline Phosphatase 128 U/L (38-126); Aspartate Aminotransferase 33 IU/L (17-59); BUN Creatinine Ratio 28.7 (6-22); Bilirubin Total 0.9 mg/dL (0.2-1.3); Blood Urea Nitrogen 27 mg/dL (9-20); Calcium 8.6 mg/dL (8.4-10.2); Chloride 92 mmol/L (98-107); Creatine Kinase 22 U/L (55-170); Estimated Glomerular Filt Rate > 60 mL/min (>60); Globulin 3.1 g/dL (1.7-4.1); Glucose 118 mg/dL (80-110); HEMOLYSIS < 15 (0-50); Potassium 4.5 mmol/L (3.4-5.1); Sodium 139 mmol/L (137-145); Total Protein 6.6 g/dL (6.3-8.2)
[2022-05-11 04:07] LABS: NT-proBNP (BNP-Adult 18+) 2730 pg/mL (<450); Troponin I 0.016 ng/mL (0.01-0.034)
[2022-05-11 04:11] LABS: Carbon Dioxide 43 mmol/L (22-32)
--- NOTE | 2022-05-11 05:24 | PC.NURSE ---
Plan to transfer: Pt is accepted at , no bed available. Waitlisted at [facility]; call midmorning to check bed availability. [facility] is closed to transfers; not waitlisting at this time [facility] is closed; may call in am to follow up.
[2022-05-11 05:55] LABS: PTT Partial Thromboplastin Tim 186 SECONDS (26.4-36.2)
[2022-05-11] MEDS: SOTALOL 80 MG TABLET PO (06:46)
--- NOTE | 2022-05-11 07:43 | PC.NURSE ---
Pt sleeping at this time. Resp even and unlabored. O2 via NC at 5L, O2 sat 92%. Pt currently in afib with a rate of 110-140, MD aware and sotalol was given. Heparin drip at 14ml/hr
--- NOTE | 2022-05-11 08:10 | PC.NURSE ---
Dr. Wheeler aware of Pt' s VS including BP of 92/50. MD consulting cardiology
--- NOTE | 2022-05-11 08:36 | PC.NURSE ---
Dr. Pauline gutierrez for Dr. Wheeler
[2022-05-11] MEDS: dilTIAZem 5 MG/ML SDV 10 MG IV (08:49)
[2022-05-11] MEDS: DILTIAZEM 125 MG/125 ML PIGGYBACK IV (08:59)
[2022-05-11] MEDS: GABAPENTIN 300 MG CAPSULE PO ×3 (11:03→21:39)
[2022-05-11] MEDS: SODIUM CHLORIDE 0.9% 500 ML 1000 ML IV ×2 (11:07→20:27)
[2022-05-11 12:12] LABS: INR 1.3 (0.9-1.3); Prothrombin Time 14.5 SECONDS (10.1-12.7)
[2022-05-11 12:16] LABS: PTT Partial Thromboplastin Tim 58 SECONDS (26.4-36.2)
[2022-05-11 12:28] LABS: NT-proBNP (BNP-Adult 18+) 4630 pg/mL (<450); Troponin I 0.013 ng/mL (0.01-0.034)
--- NOTE | 2022-05-11 12:52 | PC.NURSE ---
Pt new PTT for 1200 is 58 sec. Per non-coronary heparin protocol, order to bolus 2000 units heparin IV and increase rate by 100 units/hr. In MAR, admin reflects that pt was momentarily increased from 700units/hr to 900units/hr which is incorrect and unable to be rectified in the [facility] charting system. Pt was increased from 700 units/hr to 800 units/hr per protocol and given a 2000 unit bolus. NAD. Pt BP remains low at 75/43. Remains on diltiazem gtt at 2.5mg/hr. Dr Wheeler made aware. Pt remains on diltiazem and no orders to DC at this time.
[2022-05-11] MEDS: HEPARIN 5,000 UNIT/ML VIAL 2000 UNIT IV (13:12)
--- NOTE | 2022-05-11 15:44 | DI.ECHO.S_ITS ---
[place] [facility]---------+ [facility] +---------+ : : [address] : [place] [address] : : : : [id number] : : : : Phone: [phone]---------+ Echocardiogram Report + + :Name: LENNOX DEVINE Study Date: 05/11/2022 Height: 72 in : :[facility] ReadingLocation: Weight: 195 lb: : Gender: Male BSA: 2.1 m2 : :: 1940 Age: 82 yrs BP: 83/51 mmHg: :Reason For Study: CHEST PAIN : :Ordering Physician: SCARLET, : :GAIL Performed By: Yolanda Connor : :Referring: GAIL NOVAK : + + Interpretation Summary Afib with RVR. HR is 124 bpm. Normal LV size; mild LVH; EF is 60-65%. Severe RV enlargement and moderately-severely reduced RV function. Severe RA enlargement. No significant valvular abnormalities. Mildlly dilated ascending oarta. Estimated PA systolic pressure is 83 mm Hg assuming RA pressure of 15 mm Hg Procedure: A two-dimensional transthoracic echocardiogram with color flow and Doppler was performed. The study quality was technically difficult. There is no prior echocardiogram noted for this patient. The patient was in atrial fibrillation with heart rates between 90-124 bpm during the exam. Left Ventricle: There is mild concentric left ventricular hypertrophy. The left ventricle is normal in size. The ejection fraction is estimated to be 60- 65%. The interventricular septum is flattened, consistent with a right ventricular pressure/volume condition. Diastolic function could not be accurately assessed due to atrial fibrillation. Right Ventricle: The right ventricle is severely dilated. Right ventricular systolic function is moderate to severely reduced. Atria: The left atrial size is normal. The right atrium is severely dilated. There is no Doppler evidence for an interatrial shunt. Mitral Valve: There is mild mitral annular calcification. The mitral valve leaflets appear mildly thickened, but open well. There is mild mitral regurgitation. Aortic Valve: The aortic valve is trileaflet. The aortic valve opens well. There is no aortic valve stenosis. No aortic regurgitation is present. Tricuspid Valve: The tricuspid valve is not well visualized, but is grossly normal. There is mild to moderate tricuspid regurgitation. The right ventricular systolic pressure is estimated to be at least 83 mmHg based on an estimated right atrial pressure of 15 mm Hg. There is severe pulmonary hypertension. Pulmonic Valve: The pulmonic valve is not well visualized. There is no pulmonic valvular regurgitation. Great Vessels: The aortic root is borderline dilated. The dimensions of the ascending aorta are normal. The IVC is dilated (diameter is greater than 2.1 cm) and it collapses less than 50% with a sniff. This suggests a high right atrial pressure of 15 mm Hg. Pericardium/ Pleura There is no pericardial effusion. There is no pleural effusion. MMode/2D Measurements & Calculations LVIDd: 4.3 cm LVOT diam: 2.5 cm LVIDs: 2.8 cm Ao root diam: 4.0 cm FS: 33.9 % asc Aorta Diam: 3.5 cm EPSS: 1.3 cm IVSd: 1.4 cm LVPWd: 1.1 cm LV berger. diameter/BSA (cm/m^2): 2.0 LV sys. diameter/BSA (cm/m^2): 1.3 LA A2 area: 23.1 cm2 RA long axis: 5.3 cm LA A4 area: 18.4 cm2 RA area: 24.6 cm2 LA length (vol): 6.6 cm RA vol: 97.9 ml LA vol: 55.1 ml RA : 46.4 ml/m2 LA vol index: 26.1 ml/m2 IVC diam: 2.4 cm RVD1 (basal): 5.2 cm RVD2 (mid): 3.9 cm TAPSE: 1.1 cm Doppler Measurements & Calculations Ao V2 max: 89.8 cm/sec LVOT Max Chet: 71.9 cm/sec Ao V2 mean: 58.5 cm/sec LV V1 max P.1 mmHg Ao max P.2 mmHg LV V1 VTI: 12.3 cm Ao mean P.6 mmHg GAVIN(I,D): 4.3 cm2 Ao V2 VTI: 14.0 cm GAVIN(V,D): 3.9 cm2 sev ratio: 0.88 GAVIN indexed to BSA (cm^2/m^2): 2.0 MV E max chet: 66.4 cm/sec TR max chet: 411.8 cm/sec MV A max chet: 2.0 cm/sec TR max P.8 mmHg MV E/A: 32.6 PA pr(Accel): 44.7 mmHg Med Peak E' Chet: 7.4 cm/sec E/E' med: 9.0 Lat Peak E' Chet: 15.3 cm/sec E/E' lat: 4.4 E/e' average: 6.7 MV dec time: 0.20 sec SV(LVOT): 59.8 ml Electronically signed by: Ligia Babin M.D. on [place] Physician:05/11/2022 05:12 PM
--- NOTE | 2022-05-11 16:49 | PC.NURSE ---
Pt's BP remains low at 72/55. Dr Wheeler aware. Pt mentating appropriately. diltiazem remains off per MAR. No new orders at this time. HR 110-117. continues to be on waitlist for bed at .
--- NOTE | 2022-05-11 17:11 | PC.NURSE ---
Pt placed on inpatient bed for comfort. NAD.
[2022-05-11 19:33] LABS: PTT Partial Thromboplastin Tim 76 SECONDS (26.4-36.2)
--- NOTE | 2022-05-11 19:46 | PC.NURSE ---
Pt resting in bed eyes closed. at bedside. Dr Wheeler was able to have conversation with family and pt regarding POLST and his wishes. POLST filled out and placed in chart. PTT for 1800 resulted. Heparin gtt to stay at current rate per protocol and checked again in the AM. Order for PTT at 0500 placed per protocol. NAD. BP 90/56. Pt ate minimal dinner and asking for ice cream which was given.
--- NOTE | 2022-05-11 23:47 | DI.RAD.S_ITS ---
PROCEDURE: XR CHEST 1V INDICATIONS: line placement TECHNIQUE: One view of the chest was acquired. COMPARISON: [facility], CT, CT ANGIO CHEST PE PROTOCOL, 05/10/2022, 20:22. [facility], CR, XR CHEST 1V, 05/10/2022, 19:26. FINDINGS: Surgical changes and devices: There is a new right internal jugular catheter with the tip extending to the region of the cavoatrial junction. Lungs and pleura: No definite evidence of pneumothorax. There is a moderate to large loculated right pleural effusion which appears increased in size compared to the prior study. Pulmonary edema is demonstrated within the visualized aerated lungs as well as chronic interstitial opacities. Mediastinum: Mediastinal contours appear normal. Heart size is normal. Bones and chest wall: No suspicious bony lesions. Overlying soft tissues appear unremarkable. IMPRESSION: 1. No evidence of pneumothorax. 2. Increase in size of a moderate to large loculated right pleural effusion. 3. Bilateral opacities within the aerated lungs consistent with interstitial lung disease and pulmonary edema. Dictated by: Dexter Ruiz M.D. on 05/12/2022 at 1:02 Approved by: Dexter Ruiz M.D. on 05/12/2022 at 1:05
[2022-05-12] VITALS (122 sets, daily range): BP systolic 69–128; BP diastolic 44–80; PULSE 52–100; RESP 24–44; O2SAT 84–100
[2022-05-12] MEDS: PHENYLEPHRINE 20,000 MCG in DEXTROSE 5% IN WATER 250 ML 37.5 MCG IV ×4 (00:41→22:20)
[2022-05-12] MEDS: AMIODARONE 150 MG/100 ML PIGGYBACK 600 MG IV (00:43)
[2022-05-12] MEDS: AMIODARONE 360 MG/200 ML PIGGYBACK 18.5 MG IV (00:57)
[2022-05-12 04:54] LABS: PTT Partial Thromboplastin Tim 60 SECONDS (26.4-36.2)
[2022-05-12] MEDS: HEPARIN DRIP 25,000 UNIT/500 ML IV.SOLN 16 UNIT IV (04:55)
--- NOTE | 2022-05-12 05:07 | PC.NURSE ---
This am PTT was 60, No change in rate of heparin at this time, it remains at 16ml/hr and next draw is due at 5am tomorrow.
[2022-05-12] MEDS: AMIODARONE 360 MG/200 ML PIGGYBACK 16.7 MG IV (06:45)
[2022-05-12] MEDS: PHENYLEPHRINE 20,000 MCG in DEXTROSE 5% IN WATER 250 ML 45 MCG IV (06:57)
[2022-05-12 08:04] LABS: Add Manual Diff / Slide Review NO; Basophils Absolute Auto 100 /uL (0-100); Basophils Percent Auto 0.7 % (0-2); Eosinophils Absolute Auto 200 /uL (0-450); Eosinophils Percent Auto 1.8 % (2-4); Hematocrit 42.2 % (41-53); Lymphocytes Absolute Auto 1200 /uL (1100-4500); Lymphocytes Percent Auto 11.5 % (25-40); Mean Corpuscular HGB Conc 33.2 % (30-36); Mean Corpuscular Hemoglobin 30.1 PG (26-34); Mean Corpuscular Volume 90.7 fL (80-100); Monocytes Absolute Auto 800 /uL (0-900); Neutrophils Absolute Auto 7900 /uL (1500-7000); Platelet Count 209 X10^3/uL (150-400); Red Blood Cell Count 4.65 X10^6/uL (4.5-5.9); Red Cell Distribution Width 14.8 % (11.6-14.8); White Blood Cell Count 10.1 X10^3/uL (4.5-11.0)
[2022-05-12 08:16] LABS: Alanine Aminotransferase 18 IU/L (<50); Albumin Globulin Ratio 1.1 (1.0-2.8); Alkaline Phosphatase 111 U/L (38-126); Aspartate Aminotransferase 27 IU/L (17-59); BUN Creatinine Ratio 38.3 (6-22); Bilirubin Total 0.6 mg/dL (0.2-1.3); Blood Urea Nitrogen 23 mg/dL (9-20); Calcium 8.2 mg/dL (8.4-10.2); Chloride 93 mmol/L (98-107); Estimated Glomerular Filt Rate > 60 mL/min (>60); Globulin 2.7 g/dL (1.7-4.1); Glucose 119 mg/dL (80-110); HEMOLYSIS < 15 (0-50); Sodium 134 mmol/L (137-145); Total Protein 5.7 g/dL (6.3-8.2)
[2022-05-12 08:22] LABS: Carbon Dioxide 39 mmol/L (22-32)
[2022-05-12 08:25] LABS: NT-proBNP (BNP-Adult 18+) 3550 pg/mL (<450)
--- NOTE | 2022-05-12 08:35 | PC.NURSE ---
Pt alert and oriented this am with no complaints. lab draw complete and PIV continue with no change. pt provided with gluten free breakfast and continues to await bed for transfer.
[2022-05-12] MEDS: GABAPENTIN 300 MG CAPSULE PO ×3 (08:47→21:11)
--- NOTE | 2022-05-12 09:16 | PC.NURSE ---
1st infusion of amiodarone finished at 0645 by nurse supervisor RN,2nd infusion started at 0645.
[2022-05-12] MEDS: PIPERACILLIN/TAZO 3.375 GM in SODIUM CHLORIDE 0.9% 100 ML IV ×2 (09:32→17:01)
--- NOTE | 2022-05-12 17:18 | PC.NURSE ---
per DR Eugene. Phenylephrine stopped at this time. PT with goals of MAP >60. MAP at this time 83
--- NOTE | 2022-05-12 18:00 | PC.NURSE ---
phenylephrine restarted at 50mcgs/ ml per drs orders. pt with bp 77/51
[2022-05-12] MEDS: AMIODARONE 181 MG/100.56 ML PIGGYBACK 16.7 MG IV (18:46)
[2022-05-13] VITALS (116 sets, daily range): BP systolic 79–130; BP diastolic 49–77; PULSE 49–132; RESP 15–41; TEMP 36.7; O2SAT 85–98
--- NOTE | 2022-05-13 | DI.US.S_ITS ---
PROCEDURE: US THORACENTESIS INDICATIONS: Right pleural effusion TECHNIQUE: The indications, alternatives, benefits, risks, and complications of the procedure were explained to the patient. Written informed consent was obtained and placed in the chart. The chest was examined sonographically, and an appropriate site was chosen for thoracentesis. The skin was prepared and draped in the usual sterile fashion, and 1% lidocaine was infiltrated from the skin down through the pleural surface. A 19-gauge catheter-covered needle was then introduced into the pleural space, the catheter was advanced and the needle was withdrawn, and thereafter pleural fluid was aspirated. The catheter was then removed and a dressing was applied. COMPARISON: None. FINDINGS: Access site: Right hemithorax. Needle: One-Step centesis catheter with introducer needle. Fluid volume and description: 970 mL; clear. Fluid sent for diagnostic testing: Per referring physician Medications: 1% lidocaine for local anaesthesia. Complications: None; post-procedural chest radiograph is pending to assess for pneumothorax. IMPRESSION: Successful ultrasound-guided thoracentesis. Dictated by: Daysi Hastings M.D. on 05/13/2022 at 15:50 Approved by: Daysi Hastings M.D. on 05/13/2022 at 15:51
[2022-05-13] MEDS: PIPERACILLIN/TAZO 3.375 GM in SODIUM CHLORIDE 0.9% 100 ML IV ×3 (02:00→17:26)
[2022-05-13 05:09] LABS: PTT Partial Thromboplastin Tim 54 SECONDS (26.4-36.2)
[2022-05-13] MEDS: PHENYLEPHRINE 20,000 MCG in DEXTROSE 5% IN WATER 250 ML 37.5 MCG IV ×2 (05:36→13:45)
[2022-05-13 08:12] LABS: Add Manual Diff / Slide Review NO; Basophils Absolute Auto 100 /uL (0-100); Basophils Percent Auto 0.7 % (0-2); Eosinophils Absolute Auto 200 /uL (0-450); Hematocrit 41.8 % (41-53); Hemoglobin 13.9 g/dL (13.5-17.5); Lymphocytes Absolute Auto 1100 /uL (1100-4500); Mean Corpuscular HGB Conc 33.3 % (30-36); Mean Corpuscular Hemoglobin 30.3 PG (26-34); Mean Corpuscular Volume 90.9 fL (80-100); Monocytes Absolute Auto 1000 /uL (0-900); Monocytes Percent Auto 9.2 % (3-14); Neutrophils Absolute Auto 8500 /uL (1500-7000); Neutrophils Percent Auto 78.1 % (50-75); Platelet Count 194 X10^3/uL (150-400); Red Cell Distribution Width 14.6 % (11.6-14.8); White Blood Cell Count 10.9 X10^3/uL (4.5-11.0)
[2022-05-13 08:20] LABS: Alanine Aminotransferase 19 IU/L (<50); Albumin 2.9 g/dL (3.5-5.0); Albumin Globulin Ratio 1.1 (1.0-2.8); Alkaline Phosphatase 113 U/L (38-126); Aspartate Aminotransferase 26 IU/L (17-59); BUN Creatinine Ratio 25.4 (6-22); Bilirubin Total 0.7 mg/dL (0.2-1.3); Blood Urea Nitrogen 17 mg/dL (9-20); Calcium 8.3 mg/dL (8.4-10.2); Chloride 90 mmol/L (98-107); Estimated Glomerular Filt Rate > 60 mL/min (>60); Globulin 2.6 g/dL (1.7-4.1); Glucose 113 mg/dL (80-110); HEMOLYSIS < 15 (0-50); Potassium 4.1 mmol/L (3.4-5.1); Sodium 132 mmol/L (137-145); Total Protein 5.5 g/dL (6.3-8.2)
[2022-05-13 08:27] LABS: Carbon Dioxide 41 mmol/L (22-32)
--- NOTE | 2022-05-13 08:55 | DI.RAD.S_ITS ---
PROCEDURE: XR CHEST 1V INDICATIONS: effusion, increased diffculty breathing TECHNIQUE: One view of the chest was acquired. COMPARISON: [facility], CR, XR CHEST 1V, 05/12/2022, 0:01. FINDINGS: Surgical changes and devices: Right central venous catheter is unchanged. Lungs and pleura: There is near complete opacification of the right hemithorax which is increased in extent when compared with the study dated May 12, 2022. Reticular radiopacities with superimposed patchy airspace opacities in the left lung are redemonstrated and appear unchanged from the prior study. Mediastinum: Mediastinal contours appear normal. Heart size is normal. Bones and chest wall: No suspicious bony lesions. Overlying soft tissues appear unremarkable. IMPRESSION: Findings suggesting increased size of the right pleural effusion when compared with the prior study. There is near complete opacification of the right hemithorax. Dictated by: Nerissa Lynn M.D. on 05/13/2022 at 9:50 Approved by: Nerissa Lynn M.D. on 05/13/2022 at 9:50
--- NOTE | 2022-05-13 09:53 | PC.NURSE ---
-Patient placed on humidified high flow oxygen by respiratory therapist. Placed on airborne precautions until respiratory panel returned. Patient states much more comfortable after high flow placed and his oxygen is improved from 85% on 5L nasal cannula to 97% on the high flow.
--- NOTE | 2022-05-13 10:11 | DI.US.S_ITS ---
PROCEDURE: US CHEST COMPARISON: None. INDICATIONS: right plural effusion loculated FINDINGS: [id number] right pleural effusion. No loculations identified. IMPRESSION: Right pleural effusion as above. Dictated by: Latha Guajardo M.D. on 05/13/2022 at 11:30 Approved by: Latha Guajardo M.D. on 05/13/2022 at 11:30
[2022-05-13] MEDS: GABAPENTIN 300 MG CAPSULE PO ×3 (10:37→21:00)
[2022-05-13] MEDS: AMIODARONE 200 MG TABLET PO ×2 (10:38→21:00)
[2022-05-13 11:23] LABS: Adenovirus Not Detected (Not Detect); B. parapertussis Not Detected (Not Detecte); Bordetella pertussis Not Detected (Not Detecte); Chlamydophila pneumoniae Not Detected (Not Detect); Coronavirus 229E Not Detected (Not Detect); Coronavirus HKU1 Not Detected (Not Detect); Coronavirus NL 63 Not Detected (Not Detect); Coronavirus OC43 Not Detected (Not Detect); Human Metapneumovirus Not Detected (Not Detect); Human Rhinovirus/Enterovirus Not Detected (Not Detect); Influenza A Not Detected (Not Detect); Influenza B Not Detected (Not Detect); Mycoplasma pneumoniae Not Detected (Not Detect); Parainfluenza Virus 1 Not Detected (Not Detect); Parainfluenza Virus 2 Not Detected (Not Detect); Parainfluenza Virus 3 Not Detected (Not Detect); Parainfluenza Virus 4 Not Detected (Not Detect); Respiratory Syncytial Virus Not Detected (Not Detect); SARS- CoV-2 Not Detected (Not Detecte)
--- NOTE | 2022-05-13 12:57 | PATH_ITS ---
Note [facility] Accession Number: [id number] TESTS RESULT FLAG UNITS REF RANGE LAB Clinician Provided Cytology Information No. of containers..01 Other (Miscellaneous) Source: PLEURAL FLUID DIAGNOSIS: PLEURAL FLUID NEGATIVE FOR MALIGNANT CELLS. THIS INTERPRETATION INCLUDES EVALUATION OF A CELL BLOCK. Pathologist ICD10: J90 Signed out by: Jayla Wagoner MD, Pathologist NPI- [id number] Performed by: Gaetano Mcgee, Payment Analyst ([facility]) Gross description: 60 CC, YELLOW, CLOUDY RECEIVED: FRESH IN ORANGE CAP CONTAINER. /VDU 05/17/2022 0734 Local FLAG LEGEND: L-Low Normal,H-High Normal,LL-Alert Low,HH-Alert High <-Panic Low,>-Panic High,A-Abnormal,AA-Critical Abnormal Performed at: 01 =Z [facility] [address] [place] [address] [address], [place] [address] Dexter Benjamin MD, Performed at: 01 [facility] [address], [place], [place] [id number] MD Dexter Benjamin MD Phone: [phone]
--- NOTE | 2022-05-13 13:19 | PC.NURSE ---
Addendum entered by Shantel Lopez R.N. 05/13/22 22:15: Patient was not in therapeutic range at PTT check post procedure. Verified with provider to follow algorithm since patient had been stable for 2 days on prior dose. Provider stated to follow algorithm and patient will be followed on levels at higher level of care. Addendum entered by Shantel Lopez R.N. 05/13/22 17:31: notified this RN that she has been emptying patient's urinal when he uses it. Addendum entered by Shantel Lopez R.N. 05/13/22 14:36: Restarted heparin at previous rate. Will order PTT for 6 hours per provider. RT to start titrating O2 requirements post thora. Will change central line dressing. Original Note: Heparin drip paused at 1311 in prep for lung tap per provider.
--- NOTE | 2022-05-13 14:23 | DI.RAD.S_ITS ---
PROCEDURE: XR CHEST 1V INDICATIONS: post thora TECHNIQUE: One view of the chest was acquired. COMPARISON: [facility], CR, XR CHEST 1V, 05/13/2022, 9:07. FINDINGS: Surgical changes and devices: There is a right side central line with the tip projecting to the area of right atrium.. Lungs and pleura: No pneumothorax. There is a moderate right pleural effusion, decreased compared to the last exam. Bilateral interstitial infiltrates and pulmonary fibrosis. Mediastinum: Mediastinal contours appear normal. Heart size is normal. Mildly increased. Bones and chest wall: No suspicious bony lesions. Overlying soft tissues appear unremarkable. IMPRESSION: No pneumothorax. Dictated by: Daysi Hastings M.D. on 05/13/2022 at 15:51 Approved by: Daysi Hastings M.D. on 05/13/2022 at 15:53
[2022-05-13] MEDS: HEPARIN DRIP 25,000 UNIT/500 ML IV.SOLN 16 UNIT IV (14:34)
[2022-05-13 15:00] LABS: Body Fluid Red Blood Cells 2536 /uL; Body Fluid Tot Nucleated Cells 567 /uL
[2022-05-13 15:07] LABS: Body Fluid Appearance CLEAR; Body Fluid Clotted? NO CLOTS PRESENT; Body Fluid Color YELLOW
[2022-05-13 15:14] LABS: Glucose Body Fluid 114 mg/dL; LDH Body Fluid 304 U/L; Total Protein Body Fluid 3.3 g/dL
--- NOTE | 2022-05-13 16:15 | RT ---
Fio2 titrated to 45%, pt luis e well. Change reported to Dr. Eugene
[2022-05-13 16:28] LABS: Other Cells Body Fluid 1 %
[2022-05-13 16:29] LABS: Mononuclear WBC Body Fluid 97 %; Polynuclear WBC Body Fluid 2 %
[2022-05-13] MEDS: PHENYLEPHRINE 20,000 MCG in DEXTROSE 5% IN WATER 250 ML 45 MCG IV (19:05)
[2022-05-13 21:20] LABS: PTT Partial Thromboplastin Tim 48 SECONDS (26.4-36.2)
[2022-05-14] VITALS: BP 92/62; PULSE 56; RESP 33; O2SAT 94
[2022-05-14 00:30] VITALS: PULSE 54; RESP 32; O2SAT 93
[2022-05-14 00:31] VITALS: BP 83/52; PULSE 54; RESP 31; O2SAT 93
[2022-05-14] MEDS: PHENYLEPHRINE 20,000 MCG in DEXTROSE 5% IN WATER 250 ML 45 MCG IV (00:41)
[2022-05-14 00:45] VITALS: BP 85/62; PULSE 58; RESP 32; O2SAT 95
[2022-05-14 01:00] VITALS: BP 100/58; PULSE 79; RESP 31; O2SAT 95
--- NOTE | 2022-05-14 01:47 | PC.NURSE ---
Patient discharged to with heparin and phenylephrine infusing.
== END 2022-05-14 01:48 | disposition short-term general hospital (02) ==
PROVIDERS: Emergency Medicine; Emergency Provider Emergency Medicine; PCP Internal Medicine
DX: I48.20 Chronic atrial fibrillation, unspecified (principal); Z79.01 Long term (current) use of anticoagulants; I26.99 Other pulmonary embolism without acute cor pulmonale; J90 Pleural effusion, not elsewhere classified; I50.9 Heart failure, unspecified; J96.01 Acute respiratory failure with hypoxia; J84.9 Interstitial pulmonary disease, unspecified; Z20.822 Contact with and (suspected) exposure to COVID-19
CPT/HCPCS: 32555; 36415; 36556; 36600; 71045; 71275; 76604; 80053; 81003; 82550; 82805; 82945; 83605; 83615; 83735; 83880; 84145; 84157; 84484; 85025; 85610; 85730; 86140; 87040; 87070; 87075; 87205; 87633; 87635; 89051; 93005; 93010; 93306; 96365; 96366; 96367; 96368; 96375; 99285; 99291; 99292; C9803; J0282; J1644; J1940; J2543; Q9967